=== PATIENT | male | born 1960 | race Caucasian/White ===

== ENCOUNTER 2021-10-13 10:32 | Emergency (ER) | payer MEDICARE, OTHER, SELFPAY ==
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
[2021-10-13 10:48] VITALS: BP 186/101; PULSE 113; RESP 18; TEMP 37.7; O2SAT 96
== END 2021-10-13 11:11 | disposition home or self-care (01) ==
PROVIDERS: Emergency Provider Nurse Practitioner Family; PCP Family Medicine
DX: J40 Bronchitis, not specified as acute or chronic (principal); J32.9 Chronic sinusitis, unspecified
CPT/HCPCS: 99213; G0463

== ENCOUNTER 2023-08-05 15:51 | Emergency (ER) | payer MEDICARE, SELFPAY ==
--- NOTE | ~2023-08-05 | XR_ITS ---
EXAMINATION: XR chest 2V DATE: 08/05/2023 16:45 INDICATION: Cough. TECHNIQUE: Frontal and lateral views of the chest were obtained on 3 radiographs. COMPARISON: None. FINDINGS: The lungs are hyperexpanded, consistent with chronic obstructive pulmonary disease. There i s mild atelectasis versus scarring in left lower lung zone. No pleural effusion or pneumothorax. The heart size is normal. IMPRESSION: 1. Hyperexpanded lungs, consistent with chronic obstructive pulmonary disease. 2. Mild atelectasis versus scarring in left lower lung zone. Reviewed, dictated and finalized at location A. CENTER SPECIALIST
[2023-08-05 16:14] VITALS: BP 173/84; PULSE 100; RESP 20; TEMP 37.4; O2SAT 96
--- NOTE | 2023-08-05 16:46 | ED.URI ---
HPI - URI/Sore Throat General Chief Complaint: Upper Respiratory Infection Stated Complaint: Sinus Time Seen by Provider: 08/05/23 16:46 Source: patient Mode of arrival: ambulatory Limitations: no limitations History of Present Illness HPI Narrative: 62-year-old male presents with complaint of cough, chest congestion x5 days. Afebrile. No nasal Congestion, sore throat. not taking any [id number] medications to treat symptoms. Patient is current everyday smoker. Feeling short of breath, chest tightness today. All systems reviewed and negative except as noted above. Related Data Allergies Allergy/AdvReac Type Severity Reaction Status Date / Time simvastatin Allergy Intermediate Unknown Verified 11/28/22 08:00 atorvastatin Allergy Mild Unknown Verified 11/28/22 08:00 Review of Systems Review of Systems: CONSTITUTIONAL: Denies fever, chills, or sweats. EYES: Denies visual changes, redness, or discharge. ENT: Denies rhinorrhea, congestion, sore throat, or otalgia. CARDIOVASCULAR: Denies chest pain, palpitations, or edema. RESPIRATORY: Reports cough, chest congestion and dyspnea with exertion. GASTROINTESTINAL: Denies abdominal pain, nausea, vomiting, or diarrhea. GENITOURINARY: Denies dysuria or hematuria. SKIN: Denies rash or itching. MUSCULOSKELETAL: Denies back pain, joint pain, or myalgia. NEUROLOGIC: Denies headache, numbness, or weakness. PSYCHIATRIC: Denies anxiety or depression. All other systems reviewed are negative, except as documented in HPI. [facility] Past Medical History Medical History BMI greater than 30 Family History Family History Mother Family history of multiple sclerosis, Onset Age: 57 Patient's mother is Sibling Patient's sister is in good health, Onset Age: 45 Father Patient's father is Family history of malignant neoplasm of brain Family history of malignant neoplasm of esophagus Social History Social History Smoking status: Current every day smoker Alcohol intake: current Comments At time of signature, agree with nursing past medical, surgical, social and family history. There is no relevant family history pertinent to the presenting complaint. Exam Narrative: GENERAL: This is a well-nourished, well-developed patient, in no apparent distress. HEAD: normocephalic, atraumatic. EYES: PERRL. Sclera clear/white. Vision is grossly intact. EARS: External ears normal, auditory canals clear and without drainage, TMs normal without perforation. Hearing grossly intact. NOSE: External nose normal with no obvious nasal discharge, nares without redness, no rhinorrhea. THROAT: Mucous membranes moist, posterior pharynx clear. NECK: Neck supple, non-tender without lymphadenopathy, masses or thyromegaly. CARDIOVASCULAR: Regular rate and rhythm without murmurs, gallops, or rubs. RESPIRATORY: decreased throughout all lung amaral, expiratory wheeze noted to upper lung amaral. Breath sounds equal bilaterally. No rales, or rhonchi. SKIN: warm, Dry, intact with no suspicious lesions or rash, good texture and turgor. NEURO: awake, alert, and oriented to person, place and time. There were no obvious focal neurologic abnormalities. EXTREMITIES: No joint tenderness, effusion, or edema noted. Course Course Level of Care: Express Care Visit Vital Signs Vital signs: Vital Signs Temperature 37.4 C 08/05/23 16:14 Pulse Rate 100 08/05/23 16:14 Respiratory Rate 20 08/05/23 16:14 Blood Pressure 173/84 H 08/05/23 16:14 Pulse Oximetry 96 08/05/23 16:14 Oxygen Delivery Room Air 08/05/23 16:14 Temperature 37.4 C 08/05/23 16:14 Pulse Rate 100 08/05/23 16:14 Respiratory Rate 20 08/05/23 16:14 Blood Pressure 173/84 H 08/05/23 16:14 Pulse Oximetry 96 08/05/23 16:14
[2023-08-05] MEDS: ALBUTEROL SULFATE NEB 2.5 MG/3 ML INH INHALATION (16:57)
[2023-08-05] MEDS: IPRATROPIUM BR 0.02% INH SOLN 0.5 MG/2.5 ML VIAL INHALATION (16:58)
[2023-08-05] MEDS: predniSONE 20 MG TABLET 40 MG PO (16:58)
== END 2023-08-05 17:40 | disposition home or self-care (01) ==
PROVIDERS: Emergency Provider Nurse Practitioner Family; PCP Family Medicine
DX: J44.0 Chronic obstructive pulmonary disease with (acute) lower respiratory infection (principal); J20.9 Acute bronchitis, unspecified; F17.200 Nicotine dependence, unspecified, uncomplicated
CPT/HCPCS: 71046; 94640; 99213; G0463; J7512

== ENCOUNTER 2023-08-07 08:00 | Emergency (ER) | payer MEDICARE, SELFPAY ==
[2023-08-07] VITALS (11 sets, daily range): BP systolic 143–181; BP diastolic 84–103; PULSE 92–100; RESP 12–26; TEMP 36.4; O2SAT 91–99
--- NOTE | ~2023-08-07 | XR_ITS ---
EXAMINATION: XR chest 1V portable DATE: 08/07/2023 08:55 INDICATION: Shortness of breath. TECHNIQUE: A single frontal view of the chest was obtained on 2 radiographs. COMPARISON: Chest 2 views 08/05/2023 FINDINGS: There are lucencies in the lungs, consistent with emphysema. No pleural effusion or pneumot horax. The heart size is normal. IMPRESSION: 1. Emphysema. Reviewed, dictated and finalized at location A. LE PULLER IMPRESSION: 1. Emphysema.
--- NOTE | 2023-08-07 08:59 | ED.GENADULT ---
HPI - General Adult General Chief complaint: Shortness of Breath/Dyspnea Stated complaint: Shortness of breath Time Seen by Provider: 08/07/23 08:40 History of Present Illness HPI narrative: 62-year-old male presents to the emergency department for evaluation of worsening shortness of breath. Patient states on Thursday he started developing some sinus congestion and cough. Patient had follow-up with his primary care physician on the and was started on albuterol and prednisone for suspected bronchitis. Patient states that the symptoms have been worsening. Patient is a smoker and smokes approximately 2 packs of cigarettes a day. Related Data Allergies Allergy/AdvReac Type Severity Reaction Status Date / Time simvastatin Allergy Intermediate Unknown Verified 08/07/23 08:03 atorvastatin Allergy Mild Unknown Verified 08/07/23 08:03 Review of Systems Review of Systems: All systems reviewed & are unremarkable except as noted in HPI and below PMFSH Past Medical History Medical History BMI greater than 30 Family History Family History Mother Family history of multiple sclerosis, Onset Age: 57 Patient's mother is Sibling Patient's sister is in good health, Onset Age: 45 Father Patient's father is Family history of malignant neoplasm of brain Family history of malignant neoplasm of esophagus Social History Social History Smoking status: Current every day smoker Alcohol intake: current Exam Narrative: APPEARANCE: Well appearing, no pain, no distress, well-nourished. HEAD: normocephalic, atraumatic. EYES: PERRLA/EOMI, conjunctivae clear. NOSE: Normal no drainage EARS:TMS clear with good light reflex. THROAT: Pharynx clear, no exudate. NECK: Supple. No adenopathy, no masses. RESPIRATORY: Airway patent, respirations nonlabored. Wheezing bilaterally CARDIOVASCULAR: Regular rate and rhythm without murmurs rubs or gallops. ABDOMINAL: Soft, nontender, nondistended, normal bowel sounds MUSCULOSKELETAL: Moves all extremities. Strength/ROM intact, No edema, No calf tenderness. NEURO: Alert. Cranial nerves II through XII intact. grossly intact SKIN: Warm, dry. Normal Color Course Course Emergency Course: 62-year-old male present to the ED for evaluation of worsening cough congestion. Patient did have some wheeze on exam was treated with albuterol. Patient was able to ambulate in the emergency department with a pulse ox 92%. Patient states he did have some shortness of breath but patient states he does feel strong enough to be discharged to home. Patient was offered admission for his shortness of breath. Patient was positive for RSV. Chest x-ray showed emphysema but no underlying pneumonia. Patient was started on antibiotics due to the possibility an underlying bacterial infection due to his significant smoking history. Patient was offered admission but patient preferred to be discharged to home. Patient was well-appearing at time of discharge. Patient was educated on reasons to return to the ED. All questions and concerns were addressed. Patient does have albuterol at home and patient was provided a spacer. Patient was provided additional 3 days on his prednisone taper and patient was started antibiotics. Vital Signs Vital signs: Vital Signs Temperature 97.6 F 08/07/23 08:03 Pulse Rate 97 08/07/23 08:03 Respiratory Rate 24 H 08/07/23 08:03 Blood Pressure 181/84 H 08/07/23 08:03 Pulse Oximetry 92 08/07/23 08:03 Oxygen Delivery Room Air 08/07/23 08:03 Temperature 97.6 F 08/07/23 08:03 Pulse Rate 100 08/07/23 11:15 Respiratory Rate 18 08/07/23 11:15 Blood Pressure 146/100 H 08/07/23 11:01 Pulse Oximetry 92 08/07/23 11:15 Oxygen Delivery Room Air 08/07/23 08:28 Medical
[2023-08-07 09:09] LABS: Influenza A QL RT-PCR Negative (Negative); Influenza B QL RT-PCR Negative (Negative); RSV RNA, RT-PCR Positive (Negative); SARS-CoV-2 RNA PCR Negative (Negative)
[2023-08-07] MEDS: ALBUTEROL SULFATE NEB 2.5 MG/3 ML INH INHALATION (09:23)
[2023-08-07] MEDS: AZITHROMYCIN 250 MG TABLET 500 MG PO (11:49)
[2023-08-07] MEDS: AMOXICILLIN/CLAVULANATE K 875-125 MG TAB 1 TABLET PO (11:49)
== END 2023-08-07 11:57 | disposition home or self-care (01) ==
PROVIDERS: Emergency Provider Emergency Medicine; PCP Family Medicine
DX: J44.1 Chronic obstructive pulmonary disease with (acute) exacerbation (principal); B97.4 Respiratory syncytial virus as the cause of diseases classified elsewhere; F17.200 Nicotine dependence, unspecified, uncomplicated; Z20.822 Contact with and (suspected) exposure to COVID-19
CPT/HCPCS: 71045; 87637; 94640; 94664; 99283; A9270

== ENCOUNTER 2024-07-07 18:51 | Emergency (ER) | payer MEDICARE, SELFPAY ==
--- NOTE | ~2024-07-07 | US_ITS ---
EXAM: Focused ultrasound examination of the soft tissues of the left groin/scrotum HISTORY: abscess TECHNIQUE: Sonographic evaluation of the soft tissues of the left axilla were performed assessing gra yscale appearance and color Doppler flow. COMPARISON: None. FINDINGS: Within the area of clinical concern is a focus of mixed echogenicity measuring 12 x 12 x 17 mm. This focus demonstrates peripheral vascularity appears to be contained within the epidermal layer, suggest ing the presence of a sebaceous cyst. Sonographic evaluation of the remaining soft tissues of the left colon demonstrate benign fibrofatty elements without a cystic or solid lesion of concern. IMPRESSION: Findings suggesting the presence of a sebaceous cyst, for which clinical correlation is needed. Reviewed, dictated and finalized at location A. TROCARDIOGRAPH TECHNICIAN IMPRESSION: Findings suggesting the presence of a sebaceous cyst, for which clinical correl ation is needed.
[2024-07-07 19:00] VITALS: BP 189/84; PULSE 94; RESP 18; TEMP 36.7; O2SAT 100
[2024-07-07 20:36] VITALS: BP 179/97; PULSE 97; RESP 18; TEMP 36.8; O2SAT 97
[2024-07-07 20:47] VITALS: BP 178/97; PULSE 94; RESP 18; TEMP 36.8; O2SAT 97
[2024-07-07 23:19] VITALS: BP 199/96; PULSE 92; RESP 20; TEMP 36.9; O2SAT 99
--- NOTE | 2024-07-07 23:25 | ED_ITS ---
HPI - General Adult General Chief complaint: Skin/Abscess/Foreign Body Stated complaint: boil on left scrotum Time Seen by Provider: 07/07/24 22:07 History of Present Illness HPI narrative: patient is a 63-year-old gentleman who presents emergency department chief complaint of scrotal swelling and abscess. Patient reports that he feels as though there is a well was developed on his scrotum. Patient denies necrotic tissue denies crepitance Related Data Allergies Allergy/AdvReac Type Severity Reaction Status Date / Time simvastatin Allergy Intermediate Unknown Verified 11/12/23 16:27 atorvastatin Allergy Mild Unknown Verified 11/12/23 16:27 Review of Systems Review of Systems: A 10 system review of systems was completed on the patient and is negative except for what is stated in the HPI. Nursing and ancillary documentation was reviewed. [facility] Past Medical History Medical History BMI greater than 30 Family History Family History Mother Family history of multiple sclerosis, Onset Age: 57 Patient's mother is Sibling Patient's sister is in good health, Onset Age: 45 Father Patient's father is Family history of malignant neoplasm of brain Family history of malignant neoplasm of esophagus Social History Social History Smoking status: Former smoker (quit 3 weeks ago ) Alcohol intake: current Exam Narrative: GENERAL: Well-appearing, well-nourished, and in no acute distress. HEAD: Normocephalic, atraumatic. EYES: PERRLA and EOMI. ENT: Nares clear, no rhinorrhea or epistaxis. Mucous membranes moist. NECK: Supple. CHEST: Clear to auscultation. No respiratory distress. HEART: Regular rate and rhythm. No murmur heard. Normal peripheral pulses. ABDOMEN: Soft, nontender, nondistended, normal active bowel sounds. : There is a dime-sized swollen area in the inferior portion of the scrotum EXTREMITIES: Normal range of motion. No edema. SKIN: Warm, dry, no rash. NEURO: No focal deficits. Alert and oriented x3. PSYCH: Normal mood and affect. Course Vital Signs Vital signs: Vital Signs Temperature 36.7 C 07/07/24 19:00 Pulse Rate 94 07/07/24 19:00 Respiratory Rate 18 07/07/24 19:00 Blood Pressure 189/84 H 07/07/24 19:00 Pulse Oximetry 100 07/07/24 19:00 Oxygen Delivery Room Air 07/07/24 19:00 Temperature 36.9 C 07/07/24 23:19 Pulse Rate 92 07/07/24 23:19 Respiratory Rate 20 07/07/24 23:19 Blood Pressure 199/96 H 07/07/24 23:19 Pulse Oximetry 99 07/07/24 23:19 Oxygen Delivery Room Air 07/07/24 20:36 Procedures Abscess I/D scrotum: Date of Incision: 07/07/24 Time of Incision: 23:26 Local Anesthetic: lidocaine 1% Amount of anesthesia used (mL): 5 Technique: incised with #11 blade Amount of fluid expressed (mL): 5 Irrigation: No Packing used?: iodoform I&D Results: Pus Medical Decision Making MDM Narrative Medical decision making narrative: differential diagnosis includes abscess, cellulitis, ultrasound showed a possible cyst given the the area is tender and fluctuant incision and drainage was done Vital Signs Vital Signs: Vital Signs Temperature 36.7 C 07/07/24 19:00 Pulse Rate 94 07/07/24 19:00 Respiratory Rate 18 07/07/24 19:00 Blood Pressure 189/84 H 07/07/24 19:00 Pulse Oximetry 100 07/07/24 19:00 Oxygen Delivery Room Air 07/07/24 19:00 Temperature 36.9 C 07/07/24 23:19 Pulse Rate 92 07/07/24 23:19 Respiratory Rate 20 07/07/24 23:19 Blood Pressure 199/96 H 07/07/24 23:19 Pulse Oximetry 99 07/07/24 23:19 Oxygen Delivery Room Air 07/07/24 20:36 Discharge Plan Discharge Clinical Impression: Abscess of scrotal wall Patient Disposition: Home, Self-Care Condition: Stable Instructions: Antibiotic Form, Abscess (ED), Abscess Incision and Drainage (DC) Additional Instructions: you should remove the packing in 24 hours please follow-up with urology Prescriptions: New doxycycline hyclate 100 mg tablet 100 mg PO BID Qty: 14 0RF No Action famotidine 40 mg tablet 40 mg PO DAILY Qty: 14 0RF losartan-hydrochlorothiazide 100-25 mg tablet 1 tablet PO DAILY Qty: 90 3RF Follow-up/Referrals: Bossman Jackson MD [Physician] - Beto Castillo MD [Primary Care Provider] - Time of Disposition: 23:43
[2024-07-07] MEDS: DOXYCYCLINE HYCLATE 100 MG TABLET PO (23:54)
== END 2024-07-07 23:58 | disposition home or self-care (01) ==
PROVIDERS: Emergency Provider Emergency Medicine; PCP Family Medicine
DX: N49.2 Inflammatory disorders of scrotum (principal)
CPT/HCPCS: 55100; 76882; 99284; A9270; J2003

== ENCOUNTER 2024-08-20 08:38 | Emergency (ER) | payer MEDICARE, SELFPAY ==
[2024-08-20 09:09] VITALS: BP 169/90; PULSE 100; RESP 16; TEMP 36.1; O2SAT 100
[2024-08-20 11:15] VITALS: BP 156/80; PULSE 96; RESP 18; TEMP 36.4; O2SAT 100
[2024-08-20] MEDS: ONDANSETRON INJ 4 MG/2 ML VIAL IV PUSH (12:05)
[2024-08-20] MEDS: SODIUM CHLORIDE 0.9% IV 1,000 ML 999 ML IV CONT (12:05)
--- NOTE | 2024-08-20 12:06 | ED_ITS ---
HPI - General Adult General Chief complaint: Abdominal Pain Stated complaint: I think i have the stomach flu Time Seen by Provider: 08/20/24 11:35 History of Present Illness HPI narrative: 63-year-old male presenting emergency department for evaluation for persistent nausea and vomiting it has been going on since Thursday. Patient states that he has had no coughs fever or associated abdominal pain. Patient denies any sick contacts. Patient's primary complaint is the nausea and subsequent weakness. Patient denies any pain with urination. Related Data Allergies Allergy/AdvReac Type Severity Reaction Status Date / Time simvastatin Allergy Intermediate Unknown Verified 11/12/23 16:27 atorvastatin Allergy Mild Unknown Verified 11/12/23 16:27 Review of Systems 2 Review of Systems: All systems reviewed & are unremarkable except as noted in HPI and below PMFSH Past Medical History Medical History BMI greater than 30 Family History Family History Mother Family history of multiple sclerosis, Onset Age: 57 Patient's mother is Sibling Patient's sister is in good health, Onset Age: 45 Father Patient's father is Family history of malignant neoplasm of brain Family history of malignant neoplasm of esophagus Social History Social History Smoking status: Former smoker (quit 3 weeks ago ) Alcohol intake: current Exam 2 Narrative: APPEARANCE: Ill-appearing HEAD: normocephalic, atraumatic. EYES: PERRLA/EOMI, conjunctivae clear. NOSE: Normal no drainage EARS:TMS clear with good light reflex. THROAT: Pharynx clear, no exudate. NECK: Supple. No adenopathy, no masses. RESPIRATORY: Airway patent, respirations nonlabored. Clear to auscultation bilaterally, no rales, rhonchi, wheezing. CARDIOVASCULAR: Regular rate and rhythm without murmurs rubs or gallops. ABDOMINAL: Soft, nontender, nondistended, normal bowel sounds MUSCULOSKELETAL: Moves all extremities. Strength/ROM intact, No edema, No calf tenderness. NEURO: Alert. Cranial nerves II through XII intact. Good gait. Good coordination SKIN: Warm, dry. Normal Color Course Vital Signs Vital signs: Vital Signs Temperature 97 F L 08/20/24 09:09 Pulse Rate 100 08/20/24 09:09 Respiratory Rate 16 08/20/24 09:09 Blood Pressure 169/90 H 08/20/24 09:09 Pulse Oximetry 100 08/20/24 09:09 Temperature 97.9 F 08/20/24 15:39 Pulse Rate 80 08/20/24 15:39 Respiratory Rate 16 08/20/24 15:39 Blood Pressure 142/78 H 08/20/24 15:39 Pulse Oximetry 97 08/20/24 15:39 Medical Decision Making MDM Narrative Medical decision making narrative: 63-year-old male present to emergency department for evaluation for nausea vomiting symptoms. Patient was treated with IV fluids IV Zofran and does feel improved with treatment. Patient does have a leukocytosis of 10.9 and hemoglobin of 16.5. No significant acute abnormalities on the patient's CMP, UA was negative. On re-examination patient has a nice soft and nontender abdomen. Patient was negative for influenza RSV and for COVID. Patient and family are updated on the results of the workup and plan for treatment from. Patient was advised to follow a clear liquid diet for the next 1-3 days along with Zofran for nausea control. Differential Diagnosis Differential Diagnosis: Colitis, diverticulitis, gastroenteritis, viral etiology, dehydration Vital Signs Vital Signs: Vital Signs Temperature 97 F L 08/20/24 09:09 Pulse Rate 100 08/20/24 09:09 Respiratory Rate 16 08/20/24 09:09 Blood Pressure 169/90 H 08/20/24 09:09 Pulse Oximetry 100 08/20/24 09:09 Temperature 97.9 F 08/20/24 15:39 Pulse Rate 80 08/20/24 15:39 Respiratory Rate 16 08/20/24 15:39 Blood Pressure 142/78 H 08/20/24 15:39 Pulse Oximetry 97 08/20/24 15:39 Lab Data Lab results reviewed: Yes I reviewed the patient's lab results. 08/20/24 12:07 08/20/24 12:07 Labs: Lab Results 08/20/24 Range/Units 12:07 WBC 10.9 H (4.5-10.0) K/mm3 RBC 5.62 (4.6-6.20) M/mm3 Hgb 16.5 (14.0-18.0) g/dL Hct 47.5 (42.0-52.0) % MCV 84.5 (80-100) fl MCH 29.4 (26-34) pg MCHC 34.7 (32-36) g/dl RDW 13.1 (11.5-14.5) % Plt Count 319 (150-375) k/mm3 MPV 9.9 (7.4-10.4) fl Immature Gran % (Auto) 0.4 (0-0.5) % Neut % (Auto) 70.5 (45.5-73.1) % Lymph % (Auto) 19.7 (18.3-44.2) % [place] % (Auto) 8.3 (2.6-8.5) % Eos % (Auto) 0.4 (0-4.4) % Baso % (Auto) 0.7 (0.2-1.2) % Lymph # (Auto) 2.15 (0.9-3.2) K/mm3 [place] # (Auto) 0.9 H (0.1-0.6) K/mm3 Eos # (Auto) 0.0 (0-0.3) K/mm3 Baso # (Auto) 0.1 (0.0-0.1) K/mm3 Abs Immat Gran (auto) 0.04 H (0.00-0.031) K/mm3 Absolute Neuts (auto) 7.7 H (1.3-6.7) K/mm3 Absolute Nucleated RBC 0.000 (0.0-0.012) K/mm3 Nucleated RBC % 0.0 (0.0-0.2) % Sodium 138 (137-145) mmol/L Potassium 3.2 L (3.4-5.0) mmol/L Chloride 108 H (98-107) mmol/L Carbon Dioxide 19 L (22-30) mmol/L Anion Gap 11 (4-12) mmol/L BUN 22 H (9-20) mg/dL Creatinine 1.10 (0.7-1.3) mg/dL Estim Creat Clear Calc 76 ml/min Estimated GFR > 60 (59 - ) Glucose 122 H (65-110) mg/dL Calcium 10.1 (8.4-10.2) mg/dL Total Bilirubin 2.4 H (0.2-1.3) mg/dL AST 33 (17-59) U/L ALT 32 (6-50) U/L Alkaline Phosphatase 68 (38-126) U/L Total Protein 8.0 (6.3-8.2) g/dL Albumin 5.0 (3.5-5.1) g/dL Urine Color Yellow (Yellow) Urine Appearance Clear (Clear) Urine pH 7.0 (5.0-9.0) Ur Specific [place] 1.008 (1.001-1.035) Urine Protein Negative (Negative) mg/dL Urine Glucose (UA) Negative (Negative) mg/dL Urine Ketones 1+ H (Negative) mg/dL Ur Blood (Man) Negative (Negative) Urine Nitrate Negative (Negative) Urine Bilirubin Negative (Negative) Urine Urobilinogen 1.0 (<2.0) mg/dL Leukocyte Esterase Rfl Negative (Negative) MIN/UL Influenza A (RT-PCR) Negative (Negative) Influenza B (RT-PCR) Negative (Negative) RSV (RT-PCR) Negative (Negative) SARS-CoV-2 RNA (RT-PCR) Negative (Negative) Discharge Plan Discharge Clinical Impression: Nausea & vomiting Patient Disposition: Home, Self-Care Condition: Stable Instructions: Antibiotic Form, Clear Liquid Diet (ED), Acute Nausea and Vomiting (DC) Additional Instructions: Clear liquid diet for the next 1-3 days. Zofran as needed for nausea control. Have close follow-up with your primary care physician. If you have any worsening symptoms then please call or return to the emerged department. Patient Language: [place] Citizen Prescriptions: New ondansetron 4 mg tablet,disintegrating 4 mg PO Q8H PRN (Reason: nausea and vomiting) Qty: 14 0RF No Action famotidine 40 mg tablet 40 mg PO DAILY Qty: 14 0RF doxycycline hyclate 100 mg tablet 100 mg PO BID Qty: 14 0RF losartan-hydrochlorothiazide 100-25 mg tablet 1 tablet PO DAILY Qty: 90 3RF Follow-up/Referrals: Beto Castillo MD [Primary Care Provider] -
[2024-08-20 12:18] LABS: Basophils Absolute Auto 0.1 K/mm3 (0.0-0.1); Basophils Percent Auto 0.7 % (0.2-1.2); Eosinophils Percent Auto 0.4 % (0-4.4); Hematocrit 47.5 % (42.0-52.0); Hemoglobin 16.5 g/dL (14.0-18.0); Immature Granulocyte Absolute 0.04 K/mm3 (0.00-0.031); Immature Granulocyte Percent A 0.4 % (0-0.5); Lymphocytes Absolute Auto 2.15 K/mm3 (0.9-3.2); Lymphocytes Percent Auto 19.7 % (18.3-44.2); Mean Corpuscular HGB Conc 34.7 g/dl (32-36); Mean Corpuscular Hemoglobin 29.4 pg (26-34); Mean Corpuscular Volume 84.5 fl (80-100); Mean Platelet Volume 9.9 fl (7.4-10.4); Monocytes Absolute Auto 0.9 K/mm3 (0.1-0.6); Monocytes Percent Auto 8.3 % (2.6-8.5); Neutrophils Absolute Auto 7.7 K/mm3 (1.3-6.7); Neutrophils Percent Auto 70.5 % (45.5-73.1); Platelet Count Result 319 k/mm3 (150-375); Red Blood Count 5.62 M/mm3 (4.6-6.20); Red Cell Distribution Width 13.1 % (11.5-14.5); White Blood Count 10.9 K/mm3 (4.5-10.0)
[2024-08-20 12:27] LABS: Add Urine Microscopic? NO; Appearance Urine Clear (Clear); Bilirubin Urine Negative (Negative); Blood Urine Negative (Negative); Color Urine Yellow (Yellow); Glucose Urine UA Negative (Negative); Ketones Urine 1+ mg/dL (Negative); Leukocyte Esterase Ur Negative LEU/UL (Negative); Nitrate Urine Negative (Negative); Protein Urine Negative (Negative); Specific Grav Ur 1.008 (1.001-1.035)
[2024-08-20 12:29] LABS: Alanine Aminotransferase 32 U/L (6-50); Alkaline Phosphatase 68 U/L (38-126); Anion Gap 11 mmol/L (4-12); Aspartate Amino Transferase 33 U/L (17-59); Bilirubin,Total 2.4 mg/dL (0.2-1.3); Blood Urea Nitrogen 22 mg/dL (9-20); Calcium 10.1 mg/dL (8.4-10.2); Carbon Dioxide 19 mmol/L (22-30); Chloride 108 mmol/L (98-107); Estimated CRCL calculation 76 ml/min; Estimated Glomerular Filt Rate > 60; Glucose 122 mg/dL (65-110); Potassium 3.2 mmol/L (3.4-5.0); Sodium 138 mmol/L (137-145)
[2024-08-20 12:30] VITALS: BP 156/88; PULSE 92; RESP 16; TEMP 36.6; O2SAT 98
[2024-08-20 13:04] LABS: Influenza A QL RT-PCR Negative (Negative); Influenza B QL RT-PCR Negative (Negative); RSV RNA, RT-PCR Negative (Negative); SARS-CoV-2 RNA PCR Negative (Negative)
[2024-08-20 14:30] VITALS: BP 146/80; PULSE 86; RESP 16; TEMP 36.6; O2SAT 98
[2024-08-20 15:39] VITALS: BP 142/78; PULSE 80; RESP 16; TEMP 36.6; O2SAT 97
--- OUTSIDE RECORDS SUMMARY | 2024-08-27 08:04 | XMS_ITS | Referral Summary ---
Author Organization [facility] Address [address] [place] [address] Care Team Providers Care Medical Records Analyst Name Role Phone Lalo Dang MD Primary Care Provider Source Comments [facility],non-owned Affiliates and Associated Physician Practices is amultiple site organization consisting of ambulatory clinics and hospital sitesin [place], [place], [place] and [place]. This disclosure is being madepursuant to the Care Everywhere program and may not contain all information available regarding this patient. Last updated 18.[facility] Medications * Be aware that medications may not be up to date on this document. Alwaysverify current medications with the patient. Medication Sig Dispensed Refills Start Date End Date Status losartan-hydroCHLOROthiazide (Hyzaar) 100-25 MG tablet 05/22/2023 Active Active Problems No known active problems Social History Tobacco Use Types Packs/Day Years Used Date Smoking Tobacco: Never Assessed Sex and Gender Information Value Date Recorded Sex Assigned at Not on file Gender Identity Not on file Sexual Orientation Not on file Plan of Treatment Not on file Care Teams Medical Records Analyst Relationship Specialty Start Date End Date Lalo Dang MD [address] [place] [address] PCP - General Dermatology 07/10/23
--- OUTSIDE RECORDS SUMMARY | 2024-08-27 08:04 | XMS_ITS | Clinical Summary ---
Author Organization [facility] Address [address] [place] [address] Care Team Providers Care Supervisor Of Research Name Role Phone Lalo Dang MD Primary Care Provider Source Comments [facility],non-owned Affiliates and Associated Physician Practices is amultiple site organization consisting of ambulatory clinics and hospital sitesin [place], [place], [place] and [place]. This disclosure is being madepursuant to the Care Everywhere program and may not contain all information available regarding this patient. Last updated 18.[facility] Medications * Be aware that medications may [...] Orientation Not on file Plan of Treatment Health Maintenance Due Date Last Done Comments COLOGUARD (AGES 45-75) - COL ON CA SCREENING 1958 COLON MONITORING 1958 COLONOSCOPY - COLON CA SCREENING 1958 CT COLONOGRAPHY - COLON CA SCREENING 1958 Colorectal Cancer Screening 1958 FIT - COLON CA SCREENING 1958 FLEX SIG - COLON CA SCREENING 1958 LIPID TESTING 1958 HIV SCREENING 1973 HEPATITIS C SCREENING 12/07/1976 DTAP/TDAP/TD VACCINES (1 - Tdap) 1977 ZOSTER VACCINE (1 of 2) 2008 DEPRESSION SCREENING 08/24/2023 MEDICARE AWV ? CALENDAR YEAR 2023 PNEUMOCOCCAL VACCINE 65+ (1 of 1 - PCV) 12/13/2023 COVID-19 VACCINE (2023-2 5 season) 2024 INFLUENZA VACCINE (#1) 2024 Respiratory Syncytial Virus (RSV) Vaccine Pt: or over 60 yrs (1 - 1-dose 75+ series) 2033 HEPATITIS B VACCINE Aged Out No longe r eligible based on patient's age to complete this topic HIB VACCINE Aged Out No longer eligi ble based on patient's age to complete this topic HPV VACCINE Aged Out No longer eligi ble based on patient's age to complete this topic MENINGOCOCCAL VACCINE Aged Out No khadijah tre eligible based on patient's age to complete this topic Care Teams Supervisor Of Research Relationship Specialty Start Date End Date Lalo Dang MD [address] [place] [id number] PCP - General Dermatology 07/10/23
--- OUTSIDE RECORDS SUMMARY | 2024-08-27 08:04 | XMS_ITS | Encounter Summary ---
Author Organization [facility] Address [address] [place] [address] Care Team Providers Care Metal Crafts Teacher Name Role Phone Lalo Dang MD Primary Care Provider Reason for Visit * Reason Comments Squamous Cell Carcinoma Right distal for earm Encounter Details Date Type Department Care Team (Latest Contact Info) Description 07/10/2023 1:00 PM FEATHER STITCHER Procedure visit [facility] - Dermatology [address] [place] [address] David Lance MD [address] [facility] [address] [place] [address] Squamous cell carcinoma, arm, right Social History Tobacco Use Types Packs/Day Years Used Date Smoking Tobacco: Never Assessed Sex and Gender Information Value Date Recorded Sex Assigned at Not on file Gender Identity Not on file Sexual Orientation Not on file documented as of this encounter Patient Instructions * Patient Instructions* Samia Mccann E - 07/10/2023 1:42 PM FEATHER STITCHER Stitches: will dissolve Follow up: * If you have a problem or concern post-operatively, please call ahead to schedule an appointment. We may not be able to accommodate a walk-in appointment * Please continue wound care below twice a day for 2 weeks WOUND CARE INSTRUCTIONS 1. Leave your pressure bandage on for 48 hours. You may bathe/shower, but do NOT get the bandage wet. You will not need to perform any wound care until this bandage is removed. 2. When you initially begin wound care, you may let the water hit the pressure bandage to loosen itfrom your skin. The bandage should be removed before bathing/showering. 3. Wash your hands thoroughly before starting wound care. Do not use the same cloth/rag/sponge you would use to wash the remainder of your body as this may introduce bacteria from other areas of yourbody and possibly cause infection at the surgical site. 4. You will clean the surgery site twice daily with a mild liquid soap (i.e. Dove, Cetaphil, Baby shampoo). Do not use anything antibacterial, as this will dry the surgical site. 5. Dry the area with a fresh Q-tip or clean gauze. 6. Apply a generous amount of Vaseline or Aquaphor to the wound/sutures. Do not use Neosporin, or any antibacterial ointment as this is likely to cause an allergic reaction to the site. If you are not sure of the sanitary condition of any Vaseline/Aquaphor you may have at home, please purchase a new jar or tube. DO NOT DOUBLE-DIP Q-tips into the ointment and DO NOT USE YOUR FINGERS. This is essential in helping to prevent cross contamination and infection. 7. Cut a non-stick bandage pad to fit the area and then use bandaging tape to hold in place. Paper tape is a good option for very sensitive skin types. 8. You will be using mild soap, clean tap water, Vaseline/Aquaphor, and a bandage twice a day for 2weeks 9. After surgery, you may restart all your medications that were stopped (if applicable). If your surgical site is on your forehead, or close to the eye area, you will want to use ice packs. Please apply ice packs every hour for 20 minutes while awake. Sleep elevated for the next two nights as this will help decrease the amount of bruising and swelling you will notice the evening after surgery and into the next morning. For surgical areas on your arms/legs, try to keep the area elevated above the level of your heart as much as possible. This will help to decrease swelling. Frequent gentle rubbing of your fingers or toes in that area will prevent numbness and stiffness. If located on your arm/hand, we ask that you do not lift anything heavier than a gallon of milk fortwo weeks. Keep the arm/hand elevated to help decrease swelling in the wrist and fingers. Do not wear jewelry as impending swelling could cause discomfort. For surgical areas on your head/neck, do not bend over or stoop down. Do not drop your head, as this increases blood to the surgical area and can induce bleeding. Refrain from use of hair care products, hair coloring, or permanents until sutures have been removed and/or the surgical site has completely healed. BATHING: Begin bathing/showering once pressure bandage comes off. Do not let direct water pressure hit the surgery site. It is okay if it gets wet, just let the water roll over. PAIN: Tylenol only for the first 24 hours. Do not take any aspirin, Ibuprofen, Motrin or Aleve as this may increase your risk for bleeding for the first 24 hours. Significant pain/discomfort is unusual and should be reported to our office. SIGNS OF POSSIBLE INFECTION: Significant redness surrounding the surgery site that is warm to the touch, persistent or worsening pain, fever or flu-like symptoms, increased swelling to the area, thick yellow discharge, and/or foul odor. Please call our office as soon as possible if you experience any these symptoms as you may have an infection. BLEEDING: A mild amount of blood on the bandage is expected. Soaking through the bandage is not normal. If this occurs, remove the soiled bandage and apply uninterrupted pressure for 20 minutes by the clock. If this does not stop the bleeding, hold pressure for another 20 minutes with an ice pack. If bleeding stops, apply a bandage per wound care instructions. IF THE BLEEDING PERSISTS, PLEASE CALL OUR OFFICE. Normal office hours: [phone] or [phone] After hours and holidays Thursday - Thursday after 3:30 pm Bar Captain occupational work experience teacher: [phone] Scars may take 12 months or longer to mature, although a great deal of improvement occurs in the first 3 months. If you have concerns about your scar after 3 months, please call our office to schedule a follow up appointment. There are options available to help improve the appearance. I HER STITCHER documented in this encounter Progress Notes * David Lance MD - 07/10/2023 2:32 PM CST Mohs Consult Note Blue Rizvi is a 62 year old male who is referred by Dr. Dang for evaluation of a squamous cell carcinoma on the right forearm. Recurrent skin cancer: no Prior Treatment: no No past medical history on file. Current Outpatient Medications Medication Sig Dispense Refill ??? losartan-hydroCHLOROthiazide (Hyzaar) 100-25 MG tablet No current facility-administered medications for this visit. Not on File Pre-Operative Risk Factors: Current Anticoagulants: none Patient reports use of antibiotic for prior procedure: no Endocarditis / Rheumatic Fever hx: no Vascular graft: no Immunocompromised: no Prosthetic joint: no Congenital heart defect: no Prosthetic heart valve: no Diabetic: no Transplant: no Cardiac devices: Stent: no. Pacemaker: no. Defibrillator: no Transmissible Diseases: HIV no HepC no N/A Patient reports prior problem with local anesthesia no Tobacco use : no Review of Systems Constitutional: negative Eyes: negative Ears, nose, mouth, throat, and face: negative Respiratory: negative Cardiovascular: negative Gastrointestinal: negative Genitourinary:negative Hematologic/lymphatic: negative Neurological: negative Behavioral/Psych: negative Objective: Physical Exam: Limited skin exam is normal except for a pink plaque located on the right forearm. Pathologic Findings: Diagnosis: squamous cell carcinoma Assessment and Plan: Diagnosis: squamous cell carcinoma, right forearm Plan: Wide local excision with 0.4 cm margins Proposed closure: complex Indication for antibiotics: no Current Anticoagulants: none David Lance MD HER STITCHER documented in this encounter Procedure Notes * Priya Phillips - 07/10/2023 1:55 PM CSTAssociated Order(s): PROC EXCISION SKIN REMAINDER BODY MALIGNANT Procedure(s): CO EXC SKIN MALIG 2.1-3CM REMAINDR BODY; CO INTMD WND REPAIR TRUNK,ARM,LEG 2.6-7.5 Pre-Procedure Diagnose(s): Squamous cell carcinoma, arm, right Elliptical Excision with Intermediate Closure Date of Service: 07/10/2023 Tumor Type: squamous cell carcinoma, keratoacanthoma subtype Location: left distal ulnar forearm Derm-Path Lesion Size: 1.3x1.1 cm Repair Type: intermediate Repair Size: 5.5 cm Suture Material: 4-0 monocryl Level of Defect: adipose Surgical Margins: 0.4 cm Primary Surgeon: David Lance MD Business Analysis Analyst: N/A INDICATIONS: The risks of bleeding, infection, discomfort, incomplete removal, and scar formation were explainedto the patient. All questions were answered. After informed consent, confirmation of site and identity, and appropriate instructions, the patient underwent the procedure as follows: PROCEDURE: With the patient in a supine position, the lesion was outlined with 0.4 cm margins measuring 2.1 x 1.9 cm. An ellipse was designed around the lesion to conform to relaxed skin tension lines in an effort to minimize scarring and deformity. The patient was then positioned on the table. The lesion and surrounding skin were prepped with chlorhexidine, draped, and anesthetized with 1% lidocaine with epinephrine 1:100,100 buffered with 1:10 sodium bicarbonate. Using a #15 blade the skin was excised along premarked lines. The resulting defect extended to adipose. Wound margins were undermined to limit functional deformity/impairment of adjacent structures. Bleeding vessels were controlled with monopolar electrodesiccation. The dermis and subcutaneous tissue were closed with buried vertical mattress sutures. Epidermal approximation was meticulously refined with sutures, resulting in a linear closure with little to no wound tension. Blood loss was estimated to be less than 5cc. The area was coa heather with petrolatum and covered with a non-adherent dressing followed by gauze and tape. Postoperative instructions were reviewed per protocol. The patient left alert and fully oriented. The attending physician was present and always immediately available. Dr. Lance performed the entire surgery, and documentation used to initiate this operative report. I entered the information in our [employer] DocFlowsheet with the information provided by Dr. Lance on his handwritten, paper format, surgical worksheet, which was then used to initiate the create of this note. Dr. Lance then reviewed and edited the note as needed to complete the note. Priya Phillips I have reviewed the note, edited it as necessary and performed the entire procedure. David Lance MD Grinder Brake Lining 07/10/2023 HER STITCHER Associated attestation - David Lance MD - 07/10/2023 2:38 PM FEATHER STITCHER I have reviewed the note, edited it as necessary and performed the entire procedure. David Lance MD Grinder Brake Lining 07/10/2023 documented in this encounter Plan of Treatment Not on file documented as of this encounter Procedures Procedure Name Priority Date/Time Associated Diagnosis Comments CO EXC SKIN MALIG 2.1-3CM REMAINDR BODY Routine 07/10/2023 1:55 PM FEATHER STITCHER Squamous cell carcinoma, arm, right CO INTMD WND REPAIR TRUNK,ARM,LEG 2.6-7.5 Routine 07/10/2023 1:55 PM FEATHER STITCHER Squamous cell carcinoma, arm, right DERMATOPATHOLOGY Routine 07/10/2023 1:52 PM FEATHER STITCHER Squamous cell carcinoma, arm, right documented in this encounter Results * CO INTMD WND REPAIR TRUNK,ARM,LEG 2.6-7.5, CO EXC SKIN MALIG 2.1-3CM REMAINDR BODY (07/10/2023 1:55PM FEATHER STITCHER) Narrative David Lance MD - 07/10/2023 1:55 PM FEATHER STITCHER David Lance MD ? 07/10/2023 ??2:38 PM Elliptical Excision with Intermediate Closure Date of Service: 07/10/2023 Tumor Type: squamous cell carcinoma, keratoacanthoma subtype Location: left distal ulnar forearm Derm-Path Lesion Size: 1.3x1.1 cm Repair Type: intermediate Repair Size: 5.5 cm Suture Material: 4-0 monocryl Level of Defect: adipose Surgical Margins: 0.4 cm Primary Surgeon: David Lance MD Business Analysis Analyst: N/A INDICATIONS: The risks of bleeding, infection, discomfort, incomplete removal, and scar formation were explained to the patient. All questions were answered. After informed consent, confirmation of site and identity, and appropriate instructions, the patient underwent the procedure as follows: PROCEDURE: With the patient in a supine position, the lesion was outlined with 0.4 cm margins measuring 2.1 x 1.9 cm. An ellipse was designed around the lesion to conform to relaxed skin tension lines in an effort to minimize scarring and deformity. The patient was then positioned on the table. The lesion and surrounding skin were prepped with chlorhexidine, draped, and anesthetized with 1% lidocaine with epinephrine 1:100,100 buffered with 1:10 sodium bicarbonate. Using a #15 blade the skin was excised along premarked lines. The resulting defect extended to adipose. Wound margins were undermined to limit functional deformity/impairment of adjacent structures. Bleeding vessels were controlled with ??monopolar electrodesiccation. The dermis and subcutaneous tissue were closed with buried vertical mattress sutures. Epidermal approximation was meticulously refined with ?? sutures, resulting in a linear closure with little to no wound tension. Blood loss was estimated to be less than 5cc. The area was coated with petrolatum and covered with a non-adherent dressing followed by gauze and tape. Postoperative instructions were reviewed per protocol. The patient left alert and fully oriented. The attending physician was present and always immediately available. Dr. Lance performed the entire surgery, and documentation used to initiate this operative report. I entered the information in our [employer] DocFlowsheet with the information provided by Dr. Lance on his handwritten, paper format, surgical worksheet, which was then used to initiate the create of this note. Dr. Lance then reviewed and edited the note as needed to complete the note. Priya Phillips I have reviewed the note, edited it as necessary and performed the entire procedure. David Lance MD Grinder Brake Lining 07/10/2023 David Lance MD PROCEDURE/MINOR SURG ICAL ORDERABLES * DERMATOPATHOLOGY (07/10/2023 1:52 PM FEATHER STITCHER) Case Report Dermatopathology Report ? Case: [id number] ? Authorizing Provider: ??David Lance MD ?Collected: ? 07/10/2023 01:52 PM ? Ordering Location: ? [facility] ?? Received: ?07/13/2023 10:05 AM ? Cutaneous Oncology ? Pathologist: ? Chelsey Lisa MD ? Specimen: ?Skin, left forearm ? 3 1:22 PM [facility]ERMAT[facility] Final Diagnosis Specimen A. SKIN, left forearm: SQUAMOUS CELL CARCINOMA, WELL DIFFERENTIATED; RESIDUAL (C44.629) NOT PRESENT AT MARGIN DERMAL SCAR (L90.5) (see microscopic description) 3 1:22 PM [facility]ER[facility] Clinical History [facility] 3 1:22 PM [facility]ER[facility] Gross Description Specimen A: Received is one formalin filled container labeled with the patient's name and designated left forearm.The specimen consists of an ellipse measuring [id number] mm and is oriented with the suture/notch at the 12 o'clock position labeled on the requisition. Also, there a lesion measuring 6x5 mm.The 12 to 6 o'clock margin is inked green. The 6 o'clock to 12 o'clock margin is inked black. The 12 o'clock tip is submitted in cassette 1. The 6 o'clock tip is submitted in cassette 2. The remainder of the ellipse is serially sectioned and submitted in cassettes 3 - 5. Jar 0. 3 1:22 PM [facility] DERMAT[facility] Microscopic Description Specimen A. SKIN, left forearm: Arising in the epidermis and extending into the dermis there are irregularly shaped aggregates of keratinocytes showing evidence of premature cornification. This lesion is not present at the margin of the specimen. There are fibroblasts and collagen bundles oriented parallel to the skin surface with elongated blood vessels, some of which are oriented perpendicular to the skin surface. 3 1:22 PM [facility] DERMATOP[facility] Disclaimer An external and internal positive and negative controls are appropriate for the histochemical, immunohistochemical and immunofluorescence stain(s) in this case (if any), except where stated explicitly. The performance characteristics of the stain(s) cited in this report were developed and its performance characteristic determined by the Dermatopathology Laboratory at [facility], directed by Dr. Risa Patel. These tests need not be, and therefore are not, approved by the [place] Food and Drug Administration. The tests are used for clinical purposes. Billing Codes Specimen Charges Stain Charges 69228 1 3 1:22 PM FEATHER STITCHER DERMATOPATHOLOGY LABORATORY Embedded Images 3 1:22 PM [facility] DERMAT[facility] Pathology/Cytolo gy TISSUE SPECIMEN FROM SKIN / Unknown 07/10/2023 1:52 PM FEATHER STITCHER 07/13/2023 10:05 AM FEATHER STITCHER David Lance MD LAB - PATHOLOGY/CYTO LOGY ORDERABLES DERMATOPATHOLOGY LABORATORY [facility] Department of Dermatology [facility] Medicine [address] [place] [address], [address] [phone] documented in this encounter Visit Diagnoses Diagnosis Squamous cell carcinoma, arm, right- Primary documented in this encounter Care Teams Metal Crafts Teacher Relationship Specialty Start Date End Date Lalo Dang MD [address] [place] [address] PCP - General Dermatology 07/10/23 documented as of this encounter
--- OUTSIDE RECORDS SUMMARY | 2024-08-27 08:04 | XMS_ITS | Patient Health Summary ---
Author Organization [facility] [place] Address [address] [place] [address] Care Team Providers Care Deputy Attorney General Name Role Phone Lalo Dang MD Primary Care Provider [phone] Note from [facility],non-owned Affiliates and Associated Physician Practices is amultiple site organization consisting of ambulatory clinics and hospital sitesin [place], [place], [place] and [place]. This disclosure is being madepursuant to the Care Everywhere program and may not contain all information available regarding this patient. Last updated 18.[facility] Medications * Be aware that medications may not be up to date on this document. Alwaysverify current medications with the patient. * losartan-hydroCHLOROthiazide (Hyzaar) 100-25 MG tablet(Started 05/22/2023) Active Problems No known active problems Social History Tobacco Use Types Packs/Day Years Used Date Smoking Tobacco: Never Assessed Sex and Gender Information Value Date Recorded Sex Assigned at Not on file Gender Identity Not on file Sexual Orientation Not on file Procedures * DERMATOPATHOLOGY(Performed 02/16/2024) * NC EXC SKIN MALIG 2.1-3CM REMAINDR BODY(Performed 07/10/2023) Performed for Squamous cell carcinoma, arm, right * NC INTMD WND REPAIR TRUNK,ARM,LEG 2.6-7.5(Performed 07/10/2023) Performed for Squamous cell carcinoma, arm, right * DERMATOPATHOLOGY(Performed 07/10/2023) Performed for Squamous cell carcinoma, arm, right * DERMATOPATHOLOGY(Performed 06/24/2023) * DERMATOPATHOLOGY(Performed 07/16/2021) * DERMATOPATHOLOGY(Performed 01/19/2019) * DERMATOPATHOLOGY(Performed 08/01/2011) Results * DERMATOPATHOLOGY (02/16/2024 12:00 AM CDT) Only the most recent of6 resultswithin the time period is included. Case Report Dermatopathology Report ? Case: [id number] ? Authorizing Provider: ??Lalo Dang MD ?Collected: ? 02/16/2024 12:00 AM ? Ordering Location: ? [facility] - ??Received: ?02/18/2024 10:45 AM ? DermPath Lab ? Pathologist: ? Edilia Lisa MD ? Specimen: ?Skin, right superior anterior thigh ? 4 1:47 PM CDT DERMATOPATHOLOGY LABORATORY Final Diagnosis Specimen A. SKIN, right superior anterior thigh: SEBORRHEIC KERATOSIS, RETICULATED (ADENOID) TYPE, INFLAMED (L82.1) POST-INFLAMMATORY PIGMENT ALTERATION (L81.9) 4 1:47 PM CDT DERMATOPATHOLOGY LABORATORY Clinical History R/O Dysplastic nevus vs angioma 1:47 PM CDT DERMATOPATHOLOGY LABORATORY Gross Description Specimen A: Received is one formalin filled container labeled with the patient's name and designated right superior anterior thigh. The specimen consists of a shave biopsy measuring 10x8x2 mm. Jar 0. 1:47 PM CDT DERMATOPATHOLOGY LABORATORY Microscopic Description Specimen A. SKIN, right superior anterior thigh: There is reticulated hyperplasia of the epidermis with overlying delicate hyperorthokeratosis . Hyperpigmentation is present in the basaloid cells. There is abundant melanin within melanophages around the superficial vascular plexus and a lymphohistiocytic infiltrate within the dermis. 1:47 PM CDT DERMATOPATHOLOGY LABORATORY Disclaimer An external and internal positive and negative controls are appropriate for the histochemical, immunohistochemical and immunofluorescence stain(s) in this case (if any), except where stated explicitly. The performance characteristics of the stain(s) cited in this report were developed and its performance characteristic determined by the Dermatopathology Laboratory at [facility], directed by Dr. Risa Patel. These tests need not be, and therefore are not, approved by the [place] Food and Drug Administration. The tests are used for clinical purposes. Billing Codes Specimen Charges Stain Charges 65963 1 4 1:47 PM CDT DERMATOPATHOLOGY LABORATORY Embedded Images 1:47 PM CDT DERMATOPATHOLOGY LABORATORY Pathology/Cytolog y TISSUE SPECIMEN FROM SKIN / Unknown 02/16/2024 02/18/2024 10:45 AM CDT Lalo Dang MD LAB - PATHOLOGY/CYTO LOGY ORDERABLES DERMATOPATHOLOGY LABORATORY [facility] - Department of Dermatology [address] [phone] * NC INTMD WND REPAIR TRUNK,ARM,LEG 2.6-7.5, NC EXC SKIN MALIG 2.1-3CM REMAINDR BODY (07/10/2023 1:55PM ALIGNMENT TECHNICIAN) Narrative David Lance MD - 07/10/2023 1:55 PM ALIGNMENT TECHNICIAN David Lance MD ? 07/10/2023 ??2:38 PM Elliptical Excision with Intermediate Closure Date of Service: 07/10/2023 Tumor Type: squamous cell carcinoma, keratoacanthoma subtype Location: left distal ulnar forearm Derm-Path Lesion Size: 1.3x1.1 cm Repair Type: intermediate Repair Size: 5.5 cm Suture Material: 4-0 monocryl Level of Defect: adipose Surgical Margins: 0.4 cm Primary Surgeon: David Lance MD Student Financial Services Counselor: N/A INDICATIONS: The risks of bleeding, infection, [...] report. I entered the information in our [employer] DocFlowsheet with the information provided by Dr. Lance on his handwritten, paper format, surgical worksheet, which was then used to initiate the create of this note. Dr. Lance then reviewed and edited the note as needed to complete the note. Priya Phillips I have reviewed the note, edited it as necessary and performed the entire procedure. David Lance MD Print Room Worker 07/10/2023 David Lance MD PROCEDURE/MINOR SURG ICAL ORDERABLES Care Teams Deputy Attorney General Relationship Specialty Start Date End Date Lalo Dang MD [address] [place], [place] [id number] PCP - General Dermatology 07/10/23
--- OUTSIDE RECORDS SUMMARY | 2024-08-27 08:04 | XMS_ITS | Encounter Summary ---
Author Organization [facility] Address [address] [place] [address] Care Team Providers Care County Director Welfare Name Role Phone Lalo Dang MD Primary Care Provider Encounter Details Date Type Department Care Team (Latest Contact Info) Description 07/10/2023 Travel Social History Tobacco Use Types Packs/Day Years Used Date Smoking Tobacco: Never Assessed Sex and Gender Information Value Date Recorded Sex Assigned at Not on file Gender Identity Not on file Sexual Orientation Not on file documented as of this encounter Plan of Treatment Not on file documented as of this encounter Visit Diagnoses Not on filedocumented in this encounter Care Teams County Director Welfare Relationship Specialty Start Date End Date Lalo Dang MD [address] [place] [address] PCP - General Dermatology 07/10/23 documented as of this encounter
--- OUTSIDE RECORDS SUMMARY | 2024-08-27 08:04 | XMS_ITS | Encounter Summary ---
Author Organization [facility] Address [address] [facility] [place] [address] Care Team Providers Care Industrial Analyst Name Role Phone Lalo Dang MD Primary Care Provider Encounter Details Date Type Department Care Team (Late st Contact Info) Description 02/18/2024 Lab Requisition [facility] - DermPath Lab [address] [facility], [place] [id number] Lalo Dang MD [address] [place] [address] Social History Tobacco Use Types Packs/Day Years Used Date Smoking Tobacco: Never Assessed Sex and Gender Information Value Date Recorded Sex Assigned at Not on file Gender Identity Not on file Sexual Orientation Not on file documented as of this encounter Plan of Treatment Not on file documented as of this encounter Procedures Procedure Name Priority Date/Time Associated Diagnosis Comments DERMATOPATHOLOGY Routine 02/16/2024 12:0 0 AM CDT documented in this encounter Results * DERMATOPATHOLOGY (02/16/2024 12:00 AM CDT) Case Report Dermatopathology Report ? Case: [id number] ? Authorizing Provider: ??Lalo Dang MD ?Collected: ? 02/16/2024 12:00 AM ? Ordering Location: ? [facility] - ??Received: ?02/18/2024 10:45 AM ? DermPath Lab ? Pathologist: ? Edilia Lisa MD ? Specimen: ?Skin, right superior anterior thigh ? 4 1:47 PM CDT DERMATOPATHOLOGY LABORATORY Final Diagnosis Specimen A. SKIN, right superior anterior thigh: SEBORRHEIC KERATOSIS, RETICULATED (ADENOID) TYPE, INFLAMED (L82.1) POST-INFLAMMATORY PIGMENT ALTERATION (L81.9) 4 1:47 PM CDT DERMATOPATHOLOGY LABORATORY Clinical History R/O Dysplastic nevus vs angioma 4 1:47 PM CDT DERMATOPATHOLOGY LABORATORY Gross Description Specimen A: Received is one formalin filled container labeled with the patient's name and designated right superior anterior thigh. The specimen consists of a shave biopsy measuring 10x8x2 mm. Jar 0. 4 1:47 PM CDT DERMATOPATHOLOGY LABORATORY Microscopic Description Specimen A. SKIN, right superior anterior thigh: There is reticulated hyperplasia of the epidermis with overlying delicate hyperorthokeratosis . Hyperpigmentation is present in the basaloid cells. There is abundant melanin within melanophages around the superficial vascular plexus and a lymphohistiocytic infiltrate within the dermis. 4 1:47 PM CDT DERMATOPATHOLOGY LABORATORY Disclaimer An external and internal positive and negative controls are appropriate for the histochemical, immunohistochemical and immunofluorescence stain(s) in this case (if any), except where stated explicitly. The performance characteristics of the stain(s) cited in this report were developed and its performance characteristic determined by the Dermatopathology Laboratory at [facility], directed by Dr. Risa Patel. These tests need not be, and therefore are not, approved by the [place] Food and Drug Administration. The tests are used for clinical purposes. Billing Codes Specimen Charges Stain Charges 22064 1 4 1:47 PM CDT DERMATOPATHOLOGY LABORATORY Embedded Images 4 1:47 PM CDT DERMATOPATHOLOGY LABORATORY Pathology/Cytolog y TISSUE SPECIMEN FROM SKIN / Unknown 02/16/2024 02/18/2024 10:45 AM CDT Lalo Dang MD LAB - PATHOLOGY/CYTO LOGY ORDERABLES DERMATOPATHOLOGY LABORATORY [facility] - Department of Dermatology [facility] [address] [place] [address], [address]rd Floor [address] [phone] documented in this encounter Visit Diagnoses Not on filedocumented in this encounter Care Teams Industrial Analyst Relationship Specialty Start Date End Date Lalo Dang MD [address] [place] [address] PCP - General Dermatology 07/10/23 documented as of this encounter
--- OUTSIDE RECORDS SUMMARY | 2024-08-27 08:05 | XMS_ITS | Encounter Summary ---
Author Organization [facility] Address [address] [place] [address] Care Team Providers Care Swaging Machine Adjuster Name Role Phone Lalo Dang MD Primary Care Provider [phone] Reason for Visit * Reason Onset Date Comments Appointment 07/08/2023 Encounter Details Date Type Department Care Team (Late st Contact Info) Description 07/08/2023 Telephone [facility] - Dermatology [address] [place] [address] Holley Yee MD [address] [facility] [address] [place] [address] Appointment Social History Tobacco Use Types Packs/Day Years Used Date Smoking Tobacco: Never Assessed Sex and Gender Information Value Date Recorded Sex Assigned at Not on file Gender Identity Not on file Sexual Orientation Not on file documented as of this encounter Miscellaneous Notes * Telephone Encounter - Holley Yee MD - 07/08/2023 9:12 PM CST Same day Mohs for A please. Holley eYe MD [id number] Final Diagnosis Specimen A. SKIN, right distal ext ulnar forearm: SQUAMOUS CELL CARCINOMA, KERATOACANTHOMA TYPE; SUPERFICIAL PORTIONS OF (C44.622) (see microscopic description) PER documented in this encounter Plan of Treatment Not on file documented as of this encounter Visit Diagnoses Not on filedocumented in this encounter Care Teams Swaging Machine Adjuster Relationship Specialty Start Date End Date Lalo Dang MD [address] [place] [address] PCP - General Dermatology 07/10/23 documented as of this encounter
--- OUTSIDE RECORDS SUMMARY | 2024-08-27 08:05 | XMS_ITS | Encounter Summary ---
Author Organization [facility] Facility Care Team Providers Care Pail Bailer Name Role Phone Unavailable Primary Care Provider Unavailabl e Encounter Details Date Type Department Care Team (Late st Contact Info) Description 01/07/2011 - 01/07/2011 11:59 PM CDT Hospital Encounter [facility] Primitivo, Enrrique Hahn MD [address] [facility] 6A/6B/12A [place] [address] Localized osteoarthrosis, shoulder region Social History Tobacco Use Types Packs/Day Years Used Date Smoking Tobacco: Never Assessed Sex and Gender Information Value Date Recorded Sex Assigned at Not on file Legal Sex Male 8:26 PM REHABILITATION MANAGER Gender Identity Not on file Sexual Orientation Not on file documented as of this encounter Plan of Treatment Not on file documented as of this encounter Visit Diagnoses Diagnosis Localized osteoarthrosis, shoulder region Localized osteoarthrosis not specified whether primary or secondary, shoulder region documented in this encounter
--- OUTSIDE RECORDS SUMMARY | 2024-08-27 08:05 | XMS_ITS | Encounter Summary ---
Author Organization [facility] Facility Care Team Providers Care Blasting Entryman Name Role Phone Unavailable Primary Care Provider Unavailabl e Encounter Details Date Type Department Care Team (Late st Contact Info) Description 07/02/2010 - 07/02/2010 11:59 PM DIRECTOR BIOMEDICAL ENGINEERING Hospital En[facility] Langford, Enrrique Hahn MD [address] [facility] 6A/6B[address] [place] [address] Localized osteoarthrosis, shoulder region Social History Tobacco Use Types Packs/Day Years Used Date Smoking Tobacco: Never Assessed Sex and Gender Information Value Date Recorded Sex Assigned at Not on file Legal Sex Male 8:26 PM DIRECTOR BIOMEDICAL ENGINEERING Gender Identity Not on file Sexual Orientation Not on file documented as of this encounter Plan of Treatment Not on file documented as of this encounter Visit Diagnoses Diagnosis Localized osteoarthrosis, shoulder region Localized osteoarthrosis not specified whether primary or secondary, shoulder region documented in this encounter
--- OUTSIDE RECORDS SUMMARY | 2024-08-27 08:05 | XMS_ITS | Encounter Summary ---
Author Organization [facility] Facility Care Team Providers Care Slip Caster Name Role Phone Unavailable Primary Care Provider Unavailabl e Encounter Details Date Type Department Care Team (Late st Contact Info) Description 04/09/2010 - 04/09/2010 11:59 PM CDT Hospital Encounter [facility] Primitivo, Enrrique Hahn MD [address] [facility] 6A/6B/[address] [place] [address] Osteoarthrosis, shoulder region Social History Tobacco Use Types Packs/Day Years Used Date Smoking Tobacco: Never Assessed Sex and Gender Information Value Date Recorded Sex Assigned at Not on file Legal Sex Male 8:26 PM SUPERVISOR HYDROCHLORIC AREA Gender Identity Not on file Sexual Orientation Not on file documented as of this encounter Plan of Treatment Not on file documented as of this encounter Visit Diagnoses Diagnosis Osteoarthrosis, shoulder region Osteoarthrosis, unspecified whether generalized or localized, shoulder region documented in this encounter
--- OUTSIDE RECORDS SUMMARY | 2024-08-27 08:05 | XMS_ITS | Encounter Summary ---
Author Organization [facility] Facility Care Team Providers Care Animal Laboratory Technician Name Role Phone Unavailable Primary Care Provider Unavailabl e Encounter Details Date Type Department Care Team (Late st Contact Info) Description 02/10/2011 - 02/10/2011 11:59 PM CDT [facility] Daniel Michel MD [address] [facility] 6A/6B/[address] [place] [address] Localized osteoarthrosis, shoulder region; Pain in joint, shoulder region Social History Tobacco Use Types Packs/Day Years Used Date Smoking Tobacco: Never Assessed Sex and Gender Information Value Date Recorded Sex Assigned at Not on file Legal Sex Male 8:26 PM OYSTER CULTURIST Gender Identity Not on file Sexual Orientation Not on file documented as of this encounter Plan of Treatment Not on file documented as of this encounter Visit Diagnoses Diagnosis Localized osteoarthrosis, shoulder region Localized osteoarthrosis not specified whether primary or secondary, shoulder region Pain in joint, shoulder region documented in this encounter
--- OUTSIDE RECORDS SUMMARY | 2024-08-27 08:05 | XMS_ITS | Clinical Summary ---
Author Organization [facility] Address [address] [place] [address] Care Team Providers Care Cause Analyst Name Role Phone Beto Castillo MD Primary Care Provider [phone] Allergies No known active allergies Medications ibuprofen 200 mg capsule 200 mg. 0 0 08/13/2015 Active losartan-hydroC HLOROthiazide (HYZAAR) 100-12.5 mg per tablet 0 0 08/13/2015 Active omeprazole (PriLOSEC) 20 mg capsule Take 1 capsule (20 mg total) by mouth 2 (two) times a day 60 capsule 3 01/14/2024 Active Active Problems Problem Noted Date Diagnosed Date Patient encounter status 10/22/2015 Overview (11/29/2016): Postoperative follow-up Recurrent ventral incisional hernia 08/13/2015 Overview (11/27/2016): Recurrent ventral incisional hernia Arthralgia of shoulder 10/08/2010 Social History Tobacco Use Types Packs/Day Years Used Date Smoking Tobacco: Heavy Smoker Comments:Smoking History Pac ks/day: 2 Packs Alcohol Use Standard Drinks/Week Comments No 0 (1 standard drink = 0.6 oz pur e alcohol) Personal Safety Answer Date Recorded Getting School Help Needed Not on file 09/15 Sex and Gender Information Value Date Recorded Sex Assigned at Not on file Legal Sex Male 8:26 PM BILLET RECORDER Gender Identity Not on file Sexual Orientation Not on file Obstetrics History Last Filed Vital Signs Vital Sign Reading Time Taken Comments Blood Pressure 138/100 10/24/2015 10:03 AM BILLET RECORDER Pulse 96 10/04/2015 9:02 AM BILLET RECORDER Temperature - - Respiratory Rate - - Oxygen Saturation - - Inhaled Oxygen Concentration - - Weight 109.6 kg (241 lb 9.6 oz) 11/18/2023 3:06 PM CDT Height 182.9 cm (6') 11/18/2023 3:06 PM CDT Body Mass Index 32.77 11/18/2023 3:06 PM CDT Plan of Treatment Health Maintenance Due Date Last Done Comments Colon Cancer Screening-Colonoscopy 1960 Depression Screening 1960 Fall Risk Assessment 1960 Hepatitis C Screening 1960 Prostate Cancer Screening-PSA 1960 Pneumococcal vaccine 65+ (1 of 2 - PCV) 1964 Hepatitis B Screening 1976 Zoster Vaccine (1 of 2) 2008 Abdominal Aortic Aneurysm (A AA) Screen 12/13/2023 Well Visit 65+ 12/13/2023 Covid-19 Vaccine ( season) 2024 07/30/2021, 11/23/2020, 11/02/2020 Influenza Vaccine (#1) 2024 07/30/2021 DTaP/Tdap/Td Vaccine (2 - Td or Tdap) 02/07/2029 [place] [address] [employer] Care Teams Cause Analyst Relationship Specialty Start Date End Date Beto Castillo MD PCP - General 10/22/15
--- OUTSIDE RECORDS SUMMARY | 2024-08-27 08:05 | XMS_ITS | Encounter Summary ---
Author Organization [facility] Address [address] [place] [address] Phone Care Team Providers Care Machining Associate Name Role Phone Beto Castillo MD Primary Care Provider + [phone] Encounter Details Date Type Department Care Team (Late st Contact Info) Description 09/15/2023 Telephone [facility] Pulmonary [address] [facility] Advanced Medicine 8th [place] [address] [place] [address] Anupam Cannon RN Social History Tobacco Use Types Packs/Day Years [...] on file Legal Sex Male 8:26 PM SECOND VP HR ASSESSMENT Gender Identity Not on file Sexual Orientation Not on file documented as of this encounter Miscellaneous Notes * Telephone Encounter - Anupam Cannon RN - 09/15/2023 11:20 AM SECOND VP HR ASSESSMENT Images from the original note were not included. Patient referred by Dr. Jennings. Schedule Kay[facility] IOV next available Received: Today Call patient Anupam Cannon, [facility] Pulm [address] Sched Hub Pool Please schedule this patient as an IOV in Dr. Headley clinic next available. He needs spi, spi w bd, DLCO, lung volumes, ABG, O2A, and CXR. All orders are written. Please call [phone] to confirm appointment. Thank you ND VP HR ASSESSMENT documented in this encounter Plan of Treatment Not on file documented as of this encounter Visit Diagnoses Not on filedocumented in this encounter Care Teams Machining Associate Relationship Specialty Start Date End Date Beto Castillo MD PCP - General 10/22/15 documented as of this encounter
--- OUTSIDE RECORDS SUMMARY | 2024-08-27 08:05 | XMS_ITS | Encounter Summary ---
Author Organization [facility] Address [address] [place] [address] Phone Care Team Providers Care Gravity Prospecting Operator Helper Name Role Phone Beto Castillo MD Primary Care Provider [phone] Reason for Referral * Consultation (Routine) - Pending Review Specialty Diagnoses / Procedures Referred By Contac t Referred To Contact Pulmonary Disease / Pulmonology Diagnoses Chronic obstructive pulmonary disease, unspecified COPD type (H[place]) [place] [address] [place] [address] Phone: tel: fax: [place] [address] [place] [address] Phone: tel: fax: Referral ID Status Reason Start Date Expiration Date Visits Requested Visits Authorized [id number] Pending Review Specialty Services Required 09/17/2023 10/16/2024 1 1 Question Answer Please select the performing region: [facility] (All Locations) [[id number]] To provider: MEDHAT LEAVITT [[id number]] # of visits: 1 Comments Per Anupam DOLAN IFIED TOWER CLIMBER Encounter Details Date Type Department Care Team (Late st Contact Info) Description 09/17/2023 Orders Only [facility] Pulmonary [address] [place] [address] 8th [place] [phone] Medhat Leavitt MD [address] [facility] [address] [place] [address] Chronic obstructive pulmonary disease, unspecified COPD type (HCC) (Primary Dx) Social History Tobacco Use Types Packs/Day Years [...] on file Legal Sex Male 8:26 PM CERTIFIED TOWER CLIMBER Gender Identity Not on file Sexual Orientation Not on file documented as of this encounter Plan of Treatment Scheduled Referrals Name Type Priority Associated Diagnoses Order Schedule Ambulatory referral to Pulmonology Outpatient Referral Routine Chronic obstructive pulmonary disease, unspecified COPD type (CMS/HCC) 1 Occurrences starting 09/17/2023 until 09/17/2024 documented as of this encounter Visit Diagnoses Diagnosis Chronic obstructive pulmonary disease, unspecified COPD type (HCC)- Primary documented in this encounter Care Teams Gravity Prospecting Operator Helper Relationship Specialty Start Date End Date Beto Castillo MD PCP - General 10/22/15 documented as of this encounter
--- OUTSIDE RECORDS SUMMARY | 2024-08-27 08:05 | XMS_ITS | Encounter Summary ---
Author Organization [facility] Address [address] [place] [address] Phone Care Team Providers Care Pigment Grinder Name Role Phone Beto Castillo MD Primary Care Provider + [phone] Reason for Visit * Consultation (Routine) - Authorized Specialty Diagnoses / Procedures Referred By Contac t Referred To Contact Speech Therapy Diagnoses Dysphagia, unspecified type Sylwia Miller MD [address] [place] [address] Phone: tel: fax: [facility] (All Locations) Referral ID Status Reason Start Date Expiration Date Visits Requested Visits Authorized [id number] Authorized Evaluate and Treat 11/18/2023 12/17/2024 24 24 Encounter Details Date Type Department Care Team (Late st Contact Info) Description 11/18/2023 3:20 PM CDT Therapy [facility] Otolaryngology [address] [place] [address] Medical Office Building [address] [place] [address] Arcelia Mcdonald, JESUS [address] [place] [address] Throat discomfort (Primary Dx); Dysphagia, unspecified type Social History Tobacco Use Types Packs/Day Years [...] on file 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 adult who was seen in conjunction with Dr.Molly Miller during today's clinic visit. Pt reports throat irritation, pressure, pain, and sensation of thick mucus in his throat at baseline. Symptoms started following a series of URIs starting in July (bronchitis, RSV, sinus infection,thrush) and have persisted since then. He denies food sticking or going down the wrong way when swallowing. He feels pain in his throat at rest and during swallowing; his neck feels really stiff . It hurts to turn his head. He can feel sensation of thick mucus when swallowing Drinking liquids improves sensation but it keeps returning He reports known sinus issues; he has a lot of congestion/drainage He reports his voice feels a little more hoarse right now related to increased drainage. No dyspnea complaints. His tonsils feel like sand bags . He reports rare coughing and some throat clearing that does not really clear his throat. No pneumonia or unexplained weight loss No head, neck, chest surgeries. He quit smoking last year, smoked for ~ 40 years 1.5 ppd. He is here with his and daughter. OBJECTIVE: Clinician???s Perceptual Assessment (50242): The Consensus Auditory-Perceptual Evaluation of Voice (CAPE-V) was administered below to subjectively assess overall voice quality severity (Os), roughness (R), breathiness (B), strain (S), habitual speaking pitch (Fo), and habitual speaking loudness (Io). These were determined to be consistent/frequent (C) or infrequent/intermittent (I). Rating of 0-10 = no problem; 10-20 = mild; 21-34= mild to moderate; 35-49= moderate; 50-74= moderate to severe; 75-89= severe; 90-100= profound. This revealed: Os: 25/100, C R: 25/100, C B: 0/100, C S: 20/100, C Fo: 20/100, C Io: 10/100, C Additional Features: Resonance: posterior focused VOICE CURRENT STATUS: (As determined by objective and subjective voice evaluation based on the [place] [employer] National Outcomes Measurement System (NOMS) functional communication measures) Current Level: 6 Levels: Level 1: 0-10% functional: Voice is not functional and must use alternate means of communication all the time. Level 2: 11-30% functional: Voice is not functional most of the time and must use alternate means of communication most of the time. Level 3: 31-50% functional: Voice is functional but consistently distracting. Participation in activities limited most of the time. Level 4: 51-70% functional: Voice is functional for communication but is sometimes distracting. Voice is occasionally limited in low demand situations. Level 5: 71-80% functional: Voice occasionally sounds normal. Situational variation. Voice is rarely limited in low demand situations. Level 6: 81-95% functional: Voice sounds normal most of the time. Never limited in low demand situations. Occasionally limited in high demand situations. Level 7: 95-100% functional: Voice is normal in all situations. IMPRESSIONS & PLAN OF CARE: Blue Rizvi is a 62 y.o. adult who presents with: Reported Symptoms: throat discomfort and pain Videostroboscopy today demonstrated: Right tonsillar mucus retention cyst abutting right epiglottis; moderate hyperfunction during phonation; TVFs slightly polypoid and hypervascular (L>R polypoidtissue); asymmetrical mucosal wave; Diagnosis of: throat discomfort, tonsillar mucocele Recommended Treatments: continue with reflux medication and RTC with laryngology in 2 months; no other SPINNING MULE OPERATOR intervention at this time Note dictated with voice recognition software. Mild mottler machine feeder variances may occur. Arcelia Mcdonald MA, [facility]-SPINNING MULE OPERATOR documented in this encounter Plan of Treatment Not on file documented as of this encounter Visit Diagnoses Diagnosis Throat discomfort- Primary Throat pain Dysphagia, unspecified type documented in this encounter Orders Outpatient Referral Count Last Ordered Date Fir st Ordered Date AMB REFERRAL ORDER TO SPEECH THERAPY 1 10/23 documented in this encounter Care Teams Pigment Grinder Relationship Specialty Start Date End Date Beto Castillo MD PCP - General 10/22/15 documented as of this encounter
--- OUTSIDE RECORDS SUMMARY | 2024-08-27 08:05 | XMS_ITS | Encounter Summary ---
Author Organization [facility] Address [address] [place] [address] Phone Care Team Providers Care Helpdesk Specialist Name Role Phone Beto Castillo MD Primary Care Provider + [phone] Reason for Visit * Reason Comments Dysphagia Encounter Details Date Type Department Care Team (Late st Contact Info) Description 11/18/2023 3:20 PM CDT Office Visit [facility] Medical Office Building 4 [address] [place] [address] Sylwia Miller MD [address] [place] [address] Throat discomfort (Primary Dx); Phlegm in throat; Mucocele of tonsil Social History Tobacco Use Types Packs/Day Years [...] on file 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 Gender Identity Not on file Sexual Orientation Not on file documented as of this encounter Last Filed Vital Signs Vital Sign Reading Time Taken Comments Blood Pressure - - Pulse - - Temperature - - Respiratory Rate - - Oxygen Saturation - - Inhaled Oxygen Concentration - - Weight 109.6 kg (241 lb 9.6 oz) 11/18/2023 3:06 PM CDT Height 182.9 cm (6') 11/18/2023 3:06 PM CDT Body Mass Index 32.77 11/18/2023 3:06 PM CDT documented in this encounter Ordered Prescriptions Prescription Sig Dispense Quantity Refills Last Filled Start Date End Date omeprazole (PriLOSEC) 20 mg capsule Take 1 capsule (20 mg total) by mouth 2 (two) times a day 60 capsule 3 11/18/2023 documented in this encounter Progress Notes * Sylwia Miller MD - 11/18/2023 3:20 PM CDT Images from the original note were not included. PATIENT NAME: Blue Rizvi : 1960 DOS: 11/18/2023 REFERRING PHYSICIAN: Beto Castillo MD CHIEF COMPLAINT: Chief Complaint Patient presents with Dysphagia HISTORY OF PRESENT ILLNESS: Blue Rizvi is a 62 y.o. male who presents today in evaluation for throat pain and difficulty swallowing. The sore throat has been present since July. He had back to back bronchitis, RSV, a sinus infection and then thrush. Ever since that time his throat hasn't felt right. He feels it more on the left. He feels like there is thick mucus there all of the time. It is an irritation that might hurt but he denies actual pain. More of a thick mucus sensation. Swallowing helps his symptoms.Can relieve his sensation but it also feels different because of the mucus. No weight loss, pneumonias or true dysphagia. No ear pain. No hemoptysis. No odynophagia. His father of throat cancer. He is extremely worried about it. He has been crying many nights because of his concern. He has tried reflux medication which has helped over the past four days a bit. He has tried antifungal medication as well (?nystatin). He has some voice changes currently because he is having sinus issues and drainage. This makes him feel hoarse. No coughing but feels like he needs to clear his throat. Drinking liquid alleviate the sensation temporarily. He is here because of his and daughter. He quit smoking last year but smoked ~40 years (1.5 packs per day) for a total of 60 pack years. Hequit 6 months ago. His neck has been stiff the past 3 days. His thinks this is due to stress. REVIEW OF SYSTEMS: A complete past medical history, family history, social history, and 10 system review of systems was completed by the patient on the Patient History Form and reviewed with the patient during the visit. All review of systems not otherwise marked on the form are negative. The Patient History Form canbe found in the electronic medical record as a scanned document. Past Medical History: History reviewed. No pertinent past medical history. Past Surgeries: has no past surgical history on file. Allergies: No Known Allergies Social History: Social History Tobacco Use Smoking status: Heavy Smoker Smokeless tobacco: None Tobacco comments: Smoking History Packs/day: 2 Packs Substance and Sexual Activity Drug use: None Sexual activity: None Alcohol Use: Not on file Family History: History reviewed. No pertinent family history. EXAM: Ht 182.9 cm (6') Wt 109.6 kg (241 lb 9.6 oz) BMI 32.77 kg/m?? General: Healthy appearing, no distress Psychiatric: Appropriate mood and affect Voice: very mild roughness Breathing pattern:Normal Skin: Color, texture, turgor normal. No rashes or concerning lesions on visible skin. Eyes: Lids/periorbital skin normal, conjunctivae clear, EOMs intact. Ears: External ears normal.. Nose: Normal external contour Oropharynx: Lips, mucosa, and tongue normal. Posterior pharynx without erythema or drainage. Right-sided tonsillar rounded yellow lesion (consistent with mucus retention cyst or mucocele) Neck/Lymphatic: Supple. No adenopathy. Laryngotracheal structures are midline.. Cranial Nerves:II-XII intact by exam.. LARYNGEAL EXAM: PROCEDURE: Flexible Laryngoscopy with Stroboscopy Indication: Throat discomfort Attending: Merline Miller Findings: Nasopharynx clear Palate elevation and closure: Complete Base of tongue, vallecula, epiglottis, and piriform sinuses clear. Right tonsillar mucus retention cyst abutting right epiglottis (pictured) Subglottis: clear Compression/ hyperfunction: Moderate Motion: True vocal folds were bilaterally mobile On Stroboscopy: Mucosa: Slightly polypoid and hypervascular (L>R polypoid tissue) Mucosal Wave: Asymmetric Glottic Closure: Full, no gaps Description of Procedure: The procedure was explained to the patient, who gave verbal consent. Afrin and Lidocaine 4% were used topically for anaesthesia. The endoscope was passed atraumatically through the nasal cavity with the findings as described above. The scope was gently withdrawn. The patient tolerated the procedurewell without complications. The findings were reviewed with the patient, whose questions were answered. ASSESSMENT/PLAN: 62 year old male with a sensation of throat discomfort (mucus in his throat) since an illness in July. He is very concerned about potential throat cancer. There were no red flag symptoms today and no lesions which appeared concerning for a tumor. We discussed the area near his right tonsil which appears most consistent with a mucus retention cyst. I explained that I cannot formally diagnose without tissue but I would feel comfortable just watching this (given its appearance, his lack of concerning symptoms, and the fact that his mucus sensation is more on the left and this lesion is on the right). He is amenable. If anything changes in his symptoms, I would be happy to biopsy or image it. For his sensation of mucus in the throat, we discussed potential contributors: UACS, muscle tension, laryngeal sensory neuropathy, and reflux. We discussed these each in detail. Given that he has already felt some benefit on his reflux medication, we will try a course of this. He is amenable. If his neck stiffness persists or worsens, would be order a CT neck. Finally, his exam was notable for polypoid changes on his vocal folds (consistent with Lindsay's edema). Again he was reassured this is a benign finding. MEDICATIONS ORDERED: Medication(s) Ordered omeprazole (PriLOSEC) 20 mg capsule Sig: Take 1 capsule (20 mg total) by mouth 2 (two) times a day Dispense: 60 capsule Refill: 3 ORDERS PLACED: No orders of the defined types were placed in this encounter. DISPOSITION: 2 months Merline Miller MD Blowing Engineer [facility] Division of Laryngology Department of Otolaryngology--Head & Neck Surgery documented in this encounter Plan of Treatment Not on file documented as of this encounter Visit Diagnoses Diagnosis Throat discomfort- Primary Throat pain Phlegm in throat Mucocele of tonsil documented in this encounter Care Teams Helpdesk Specialist Relationship Specialty Start Date End Date Beto Castillo MD PCP - General 10/22/15 documented as of this encounter
--- OUTSIDE RECORDS SUMMARY | 2024-08-27 08:05 | XMS_ITS | Encounter Summary ---
Author Organization [facility] Address [address] [place] [address] Phone Care Team Providers Care Logistics Planning Engineer Name Role Phone Beto Castillo MD Primary Care Provider + [phone] Encounter Details Date Type Department Care Team (Late st Contact Info) Description 09/17/2023 Telephone [facility] [address] 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 Gender Identity Not on file Sexual Orientation Not on file documented as of this encounter Miscellaneous Notes * Telephone Encounter - Anupam Cannon, HILL - 09/17/2023 2:01 PM MANAGER FLOOR ----- Message from Ross Garcia sent at 09/17/2023 1:47 PM MANAGER FLOOR ----- Regarding: RE: Schedule [facility] I[facility] next available LMOR for pt to call back to schedule ----- Message ----- From: Blossom Fonseca Sent: 09/15/2023 2:38 PM MANAGER FLOOR To: Ross Garcia Subject: FW: Schedule [facility] next available ----- Message ----- From: Anupam Cannon RN Sent: 09/15/2023 11:19 AM MANAGER FLOOR To: Renzo Jimenez [facility] [address] [place] [address] Subject: Schedule [facility] next available Please schedule this patient as an IOV in [facility] next available. He needs spi, spi w bd, DLCO, lung volumes, ABG, O2A, and CXR. All orders are written. Please call [phone] to confirm appointment. Thank you GER FLOOR documented in this encounter Plan of Treatment Not on file documented as of this encounter Visit Diagnoses Not on filedocumented in this encounter Care Teams Logistics Planning Engineer Relationship Specialty Start Date End Date Beto Castillo MD PCP - General 10/22/15 documented as of this encounter
--- OUTSIDE RECORDS SUMMARY | 2024-08-27 08:05 | XMS_ITS | Encounter Summary ---
Author Organization [facility] Facility Care Team Providers Care Industrial Relations Officer Name Role Phone Unavailable Primary Care Provider Unavailabl e Encounter Details Date Type Department Care Team (Late st Contact Info) Description 06/19/2010 - 06/19/2010 11:59 PM CDT Hospital Encounter [facility] Primitivo, Enrrique Hahn MD [address] [facility] [address]6B[address] [place] [address] Localized osteoarthrosis, shoulder region; Degeneration of lumbar or lumbosacral intervertebral disc; Cervical spondylosis without myelopathy Social History Tobacco Use Types Packs/Day Years Used Date Smoking Tobacco: Never Assessed Sex and Gender Information Value Date Recorded Sex Assigned at Not on file 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
--- OUTSIDE RECORDS SUMMARY | 2024-08-27 08:05 | XMS_ITS | Encounter Summary ---
Author Organization [facility] Address [address] [place] [address] Phone Care Team Providers Care Petroleum Refinery Laborer Name Role Phone Beto Castillo MD Primary Care Provider + [phone] Reason for Visit * Reason Comments Dysphagia Encounter Details Date Type Department Care Team (Late st Contact Info) Description 01/14/2024 9:00 AM CDT Office Visit [facility] ENT [facility] Medical Office Building [address] [place] [address] Sylwia Miller MD [address] [place] [address] Throat discomfort (Primary Dx); Mucocele of tonsil Social History Tobacco Use [...] on file 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 provider found CHIEF COMPLAINT: No chief complaint on file. HISTORY OF PRESENT ILLNESS: Blue Rizvi is a 63 y.o. male who presents today in evaluation for throat pain and difficulty swallowing. Please recall, the sore throat has been present since July. He had back to back bronchitis, RSV, a sinus infection and then thrush. Ever since that time his throat hasn't felt right. Hefeels it more on the left. He feels like there is thick mucus there all of the time. He elected to trial reflux medication. He says his throat his 95% better. The throat discomfort specifically has improved. He also has improved his throat clear but it is not gone. He had a sip of water close by he wouldn't be doing it. 5% is triggered by if he eats something spicy, eats too much and falls asleep, or allergies. EXAM: There were no vitals taken for this visit. General: Healthy appearing, no distress Psychiatric: Appropriate [...] lesion (consistent with mucus retention cyst or mucocele), stable. Neck/Lymphatic: Supple. No adenopathy. Laryngotracheal structures are midline.. Cranial Nerves:II-XII intact by exam.. LARYNGEAL EXAM: PROCEDURE: Flexible Laryngoscopy with Stroboscopy Indication: Throat discomfort Attending: Merline Miller Findings: Nasopharynx clear Palate elevation and closure: Complete Base of tongue, vallecula, epiglottis, and piriform sinuses clear. Right tonsillar mucus retention cyst abutting right epiglottis (stable) Subglottis: clear Compression/ hyperfunction: Moderate Motion: True [...] his throat) since an illness in July. This has improved with reflux. His tonsillar cyst is stable. I recommended he try going down to once a day on his PPI. MEDICATIONS ORDERED: No orders of the defined types were placed in this encounter. ORDERS PLACED: No orders of the defined types were placed in this encounter. DISPOSITION: 2 months Merline Miller MD Occupational Health Nurse [facility] Division of Laryngology Department of Otolaryngology--Head & Neck Surgery documented in this encounter Plan of Treatment Not on file documented as of this encounter Visit Diagnoses Diagnosis Throat discomfort- Primary Throat pain Mucocele of tonsil documented in this encounter Discontinued Medications Medication Sig Discontinue Reason Start Date End Da te omeprazole (PriLOSEC) 20 mg capsule Take 1 capsule (20 mg total) by mouth 2 (two) times a day Reorder 11/18/2023 01/14/2024 documented as of this encounter Care Teams Petroleum Refinery Laborer Relationship Specialty Start Date End Date Beto Castillo MD PCP - General 10/22/15 documented as of this encounter
--- OUTSIDE RECORDS SUMMARY | 2024-08-27 08:05 | XMS_ITS | Encounter Summary ---
Author Organization [facility] Facility Care Team Providers Care Nozzle Cement Sprayer Helper Name Role Phone Unavailable Primary Care Provider Unavailabl e Encounter Details Date Type Department Care Team (Late st Contact Info) Description 10/08/2010 - 10/08/2010 11:59 PM TREE SHEAR OPERATOR [facility] Langford, Enrrique Hahn MD [address] [facility] 6A[address]6B[address] [place] [address] Localized osteoarthrosis, shoulder region Social History Tobacco Use Types Packs/Day Years Used Date Smoking Tobacco: Never Assessed Sex and Gender Information Value Date Recorded Sex Assigned at Not on file 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
--- OUTSIDE RECORDS SUMMARY | 2024-08-27 08:05 | XMS_ITS | Encounter Summary ---
Author Organization [facility] Facility Care Team Providers Care Teaching Pastor Name Role Phone Unavailable Primary Care Provider Unavailabl e Encounter Details Date Type Department Care Team (Late st Contact Info) Description 09/25/2009 - 09/25/2009 11:59 PM MICROBIOLOGY PROFESSOR Hospital Encounter [facility] Primitivo, Enrrique Hahn MD [address] [facility] 6A[address]6B[address]A [place] [address] Localized osteoarthrosis, shoulder region Social History Tobacco Use Types Packs/Day Years Used Date Smoking Tobacco: Never Assessed Sex and Gender Information Value Date Recorded Sex Assigned at Not on file 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
--- OUTSIDE RECORDS SUMMARY | 2024-08-27 08:05 | XMS_ITS | Encounter Summary ---
Author Organization [facility] Facility Care Team Providers Care Molybdenum Steamer Operator Name Role Phone Beto Castillo MD Primary Care Provider [phone] Encounter Details Date Type Department Care Team (Latest Contact Info) Description 09/28/2015 9:54 AM SPECIAL PROCEDURES NURSE - 09/28/2015 11:59 PM SPECIAL PROCEDURES NURSE Hospital Encounter [facility] Tavo Reinoso MD [address] [place] [address] Encounter for preprocedural laboratory examination; Incisional hernia, without obstruction or gangrene Social History Tobacco Use Types Packs/Day Years Used Date Smoking Tobacco: Never Assessed Sex and Gender Information Value Date Recorded Sex Assigned at Not on file Legal Sex Male 8:26 PM SPECIAL PROCEDURES NURSE Gender Identity Not on file Sexual Orientation Not on file documented as of this encounter Medications at Time of Discharge Medication Sig Dispense Quantity Refills Last Filled Start D ate End Date ibuprofen 200 mg capsule 200 mg. 0 0 08/13/2015 losartan-hydroCHLORO thiazide (HYZAAR) 100-12.5 mg per tablet 0 0 08/13/2015 documented as of this encounter Plan of Treatment Not on file documented as of this encounter Procedures Procedure Name Priority Date/Time Associated Diagnosis Comments PLASMA BASIC METABOLIC PANEL Routine 09/28/2015 11:08 AM SPECIAL PROCEDURES NURSE DISCHARGE LABORATORY CUMULATIVE REPORT 09/28/2015 documented in this encounter Results * Plasma basic metabolic panel (09/28/2015 11:08 AM SPECIAL PROCEDURES NURSE) Sodium 138 136 - 146 mmol/L HISTORICAL RESULTS K, pl 4.6 3.3 - 4.9 mmol/L HISTORICAL RESULTS Chloride 105 98 - 108 mmol/L HISTORICAL RESULTS CO2 27 22 - 33 mmol/L HISTORICAL RESULTS BUN 13 7 - 18 mg/dl HISTORICAL RESULTS Glucose 121 70 - 140 mg/dl HISTORICAL RESULTS Comment: Glucose is assumed to be non-fasting. ?? Fasting Glucose normal ranges are: 0 days - 2 months: ? 40 mg/dL - 100 mg/dL 2 months - 999 years: ?70 mg/dL - 99 mg/dL Creatinine 1.30 0.50 - 1.50 mg/dl HISTORICAL RESULTS eGFR 57 ml/min/1.7 3 m2 HISTORICAL RESULTS Comment: GFR Reference Range: = > 60 mL/min/1.73 m2 This result has been calculated assuming the patient is Non-. ??If the patient is , please multiply this result by 1.21. The GFR value is not recommended for medication dose adjustment for renal function, creatinine clearance values should be used. Calcium 9.5 8.5 - 10.5 mg/dl HISTORICAL RESULTS Plasma 09/28/2015 11:0 8 AM SPECIAL PROCEDURES NURSE Tavo Reinoso MD LAB BLOOD ORDERABLES Final Re sult HISTORICAL RESULTS * DISCHARGE LABORATORY CUMULATIVE REPORT (09/28/2015) Narrative 09/28/2015 Ordered by an unspecified provider. Historical Provider LAB BLOOD ORDERABLES Kaycee l Result documented in this encounter Visit Diagnoses Diagnosis Encounter for preprocedural laboratory examination Incisional hernia, without obstruction or gangrene documented in this encounter Care Teams Molybdenum Steamer Operator Relationship Specialty Start Date End Date Beto Castillo MD PCP - General 08/13/15 10/21/15 documented as of this encounter
--- OUTSIDE RECORDS SUMMARY | 2024-08-27 08:05 | XMS_ITS | Encounter Summary ---
Author Organization [facility] Facility Care Team Providers Care Welder Metal Fab Name Role Phone Beto Castillo MD Primary Care Provider [phone] Encounter Details Date Type Department Care Team (Late st Contact Info) Description 07/06/2012 - 07/06/2012 11:59 PM SATELLITE DISH INSTALLER Hospital [facility] [address] [facility] [address]6B[address] [place] [address] Pain in joint, shoulder region; Osteoarthrosis, shoulder region Social History Tobacco Use Types Packs/Day Years Used Date Smoking Tobacco: Never Assessed Sex and Gender Information Value Date Recorded Sex Assigned at Not on file Legal Sex Male 8:26 PM SATELLITE DISH INSTALLER Gender Identity Not on file Sexual Orientation Not on file documented as of this encounter Plan of Treatment Not on file documented as of this encounter Visit Diagnoses Diagnosis Pain in joint, shoulder region Osteoarthrosis, shoulder region Osteoarthrosis, unspecified whether generalized or localized, shoulder region documented in this encounter Care Teams Welder Metal Fab Relationship Specialty Start Date End Date Beto Castillo MD PCP - General 10/10/11 08/12/15 documented as of this encounter
--- OUTSIDE RECORDS SUMMARY | 2024-08-27 08:05 | XMS_ITS | Encounter Summary ---
Author Organization [facility] Facility Care Team Providers Care Telephone Worker Name Role Phone Beto Castillo MD Primary Care Provider Encounter Details Date Type Department Care Team (Late st Contact Info) Description 02/03/2012 - 02/03/2012 11:59 PM CDT Hospital Encounter 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
--- OUTSIDE RECORDS SUMMARY | 2024-08-27 08:05 | XMS_ITS | Encounter Summary ---
Author Organization [facility] Facility Care Team Providers Care Alterations Tailor Name Role Phone Unavailable Primary Care Provider Unavailabl e Encounter Details Date Type Department Care Team (Late st Contact Info) Description 01/01/2010 - 01/01/2010 11:59 PM CDT Hospital Encounter [facility] CLINCONV Primitivo, Enrrique Hahn MD [address] [facility] 6A/6B/12A [place] [address] Localized osteoarthrosis, upper arm Social History Tobacco Use Types Packs/Day Years Used Date Smoking Tobacco: Never Assessed Sex and Gender Information Value Date Recorded Sex Assigned at Not on file Legal Sex Male 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
--- OUTSIDE RECORDS SUMMARY | 2024-08-27 08:05 | XMS_ITS | Encounter Summary ---
Author Organization [facility] Address [address] [facility] [place] [address] Care Team Providers Care Manager Pest Name Role Phone Lalo Dang MD Primary Care Provider [phone] Encounter Details Date Type Department Care Team (Late st Contact Info) Description 01/20/2019 Lab Requisition [facility] Care DermPath Lab [address] [facility], [place] [address] Lalo Dang MD [address] [place], [place] [id number] Social History Tobacco Use Types Packs/Day Years Used Date Smoking Tobacco: Never Assessed Sex and Gender Information Value Date Recorded Sex Assigned at Not on file Gender Identity Not on file Sexual Orientation Not on file documented as of this encounter Plan of Treatment Not on file documented as of this encounter Procedures Procedure Name Priority Date/Time Associated Diagnosis Comments DERMATOPATHOLOGY Routine 01/19/2019 12:0 0 AM CDT documented in this encounter Results * DERMATOPATHOLOGY (01/19/2019 12:00 AM CDT) Case Report Dermatopathology Report ? Case: [id number] ? Authorizing Provider: ??Lalo Dang MD ?Collected: ? 01/19/2019 12:00 AM ? Pathologist: ? Lili Palmer MD ? Received: ?01/20/2019 11:26 AM ? Specimens: ?? A) - Skin, right post lower scalp ? B) - Skin, right post lower scalp anteriorly ? C) - Skin, right post nape neck in hairline ? 9 12:27 PM T DERMATOPATHOLOGY LABORATORY Final Diagnosis Specimen A. SKIN, right post lower scalp: COMEDONE (L70.8) Specimen B. SKIN, right post lower scalp anteriorly: FOCAL HEALING SKIN CHANGES (L90.5) Specimen C. SKIN, right post nape neck in hairline: INTRADERMAL MELANOCYTIC NEVUS (D22.4) FOCAL HEALING SKIN CHANGES (L90.5) 9 12:27 PM T DERMATOPATHOLOGY LABORATORY Clinical History A-B: R/O BCC. C: R/O bite vs other. 9 12:27 PM T DERMATOPATHOLOGY LABORATORY Gross Description Specimen A: Received is one formalin filled container labeled with the patient's name and designated right post lower scalp. The specimen consists of a shave biopsy measuring 0m4r9mg. Jar 0. Specimen B: Received is one formalin filled container labeled with the patient's name and designated right post lower scalp anteriorly. The specimen consists of a shave biopsy measuring 3b4w8lv. Jar 0. Specimen C: Received is one formalin filled container labeled with the patient's name and designated right post nape neck in hairline. The specimen consists of a shave biopsy measuring 1t6h7di. Jar 0. 12:27 PM T DERMATOPATHOLOGY LABORATORY Microscopic Description Specimen A. SKIN, right post lower scalp: There is a dilated follicular infundibulum with keratinous plug. There is a crust of serum with neutrophils and bacteria and focal parakeratosis. Specimen B. SKIN, right post lower scalp anteriorly: There is focal epidermal hyperplasia beneath which there are vascular proliferation, fibroblasts, and an edematous stroma. Specimen C. SKIN, right post nape neck in hairline: There are nests of cytologically bland melanocytes within the dermis that mature with depth. Focally, there is epidermal hyperplasia beneath which there are vascular proliferation, fibroblasts, and an edematous stroma. 12:27 PM T DERMATOPATHOLOGY LABORATORY Disclaimer An external and internal positive and negative controls are appropriate for the histochemical, immunohistochemical and immunofluorescence stain(s) in this case (if any), except where stated explicitly. The performance characteristics of the stain(s) cited in this report were developed and its performance characteristic determined by the Dermatopathology Laboratory at [facility], directed by Dr. Risa Patel. These tests need not be, and therefore are not, approved by the [place] Food and Drug Administration. The tests are used for clinical purposes. Billing Codes Specimen Charges Stain Charges 58132 63778 56185 1 1 1 12:27 PM CDT DERMATOPATHOLOGY LABORATORY Embedded Images 12:27 PM CDT DERMATOPATHOLOGY LABORATORY Pathology/Cytology TISSUE SPECIMEN FROM SKIN / Unknown 01/19/2019 01/20/2019 11:26 AM CDT Miscellaneous samples (specimen) TISSUE SPECIMEN FROM SKIN / Unknown 01/19/2019 01/20/2019 11:26 AM CDT Miscellaneous samples (specimen) TISSUE SPECIMEN FROM SKIN / Unknown 01/19/2019 01/20/2019 11:26 AM CDT Lalo Dang MD LAB - PATHOLOGY/CYTO LOGY ORDERABLES DERMATOPATHOLOGY LABORATORY [facility] - Department of Dermatology [facility] [facility], 5th Floor Lab [address] [phone] documented in this encounter Visit Diagnoses Not on filedocumented in this encounter Care Teams Manager Pest Relationship Specialty Start Date End Date Lalo Dang MD [address] [place] [address] PCP - General Dermatology 07/10/23 documented as of this encounter
--- OUTSIDE RECORDS SUMMARY | 2024-08-27 08:05 | XMS_ITS | Encounter Summary ---
Author Organization [facility] Facility Care Team Providers Care Jacker Name Role Phone Beto Castillo MD Primary Care Provider [phone] Encounter Details Date Type Department Care Team (Latest Contact Info) Description 10/03/2015 8:09 AM ELECTRON BEAM MACHINE WELDER SETTER - 10/04/2015 9:55 AM ELECTRON BEAM MACHINE WELDER SETTER Hospital Encounter [facility] CLINCONV Funmilayo Avalos MD [address] [place] [address] Incisional hernia, with obstruction, without gangrene; Essential (primary) hypertension; Cigarette nicotine dependence, uncomplicated; Obstructive sleep apnea; Blindness of both eyes Social History Tobacco Use Types Packs/Day Years Used Date Smoking Tobacco: Never Assessed Sex and Gender Information Value Date Recorded Sex Assigned at Not on file Legal Sex Male 8:26 PM ELECTRON BEAM MACHINE WELDER SETTER Gender Identity Not on file Sexual Orientation Not on file documented as of this encounter Last Filed Vital Signs Vital Sign Reading Time Taken Comments Blood Pressure 161/97 10/04/2015 9:02 AM ELECTRON BEAM MACHINE WELDER SETTER Pulse 96 10/04/2015 9:02 AM ELECTRON BEAM MACHINE WELDER SETTER Temperature - - Respiratory Rate - - Oxygen Saturation - - Inhaled Oxygen Concentration - - Weight 108.1 kg (238 lb 5.1 oz) 016 10:13 AM ELECTRON BEAM MACHINE WELDER SETTER Height 182.9 cm (6' 0.01 ) 09/28/2015 1 0:13 AM ELECTRON BEAM MACHINE WELDER SETTER Body Mass Index 32.31 09/28/2015 10:13 AM ELECTRON BEAM MACHINE WELDER SETTER documented in this encounter Medications at Time of Discharge Medication Sig Dispense Quantity Refills Last Filled Start D ate End Date ibuprofen 200 mg capsule 200 mg. 0 0 08/13/2015 losartan-hydroCHLORO thiazide (HYZAAR) 100-12.5 mg per tablet 0 0 08/13/2015 documented as of this encounter Miscellaneous Notes * Op Note - Provider, MD Fly - 10/03/2015 12:00 AM CST Patient: AMMON RIZVI Account: [id number] Room No: 2462-A : 1960 Proc. Date: 10/03/2015 Surgeon: FUNMILAYO AVALOS M.D. Admit Date: 10/03/2015 Disch. Date: 10/04/2015 Patient Type: SDS Procedures: 1. Recurrent incisional hernia repair and umbilical hernia repair with 11 x [address] patch. 2. Removal of old mesh. Preoperative Diagnosis: Recurrent incisional hernia. Postoperative Diagnosis: Recurrent incisional hernia. Surgeon: Dr Avalos Editing Intern: Joseph Anesthesia: General. Brief Clinical History: A 54-year-old white male with prior umbilical hernia and recurrent hernia repair with a plug, has now had a new hernia to the right of his old incision. He presents for repair. Operative Findings: A 3 cm defect. Old plug was fibrotic and contracted. The omentum was scarred to this. There was omentum in the new hernia defect just lateral to the plug. There was a small umbilical hernia containing properitoneal fat. Description of Procedure: With the patient in supine position under satisfactory general anesthesia, the abdomen was prepped with ChloraPrep and draped sterilely. His old supraumbilical incision was elliptically excised. This was carried down with the Bovie electrocautery to the level of the hernia. The hernia sac was dissected free of surrounding tissue and opened. Omental adhesions were taken down with cautery. The sac was excised and portions submitted to Pathology. The old mesh was palpable medial to this. This was dissected free of surrounding tissue and was found to be collapsed and fibrotic. This was submitted to Pathology. The omentum had been plastered to the mesh as well and had been taken off with cautery. The omentum was examined. Bleeders were clamped and electrocoagulated. Properitoneal fat in the umbilical hernia was dissected out with cautery and discarded. The wound was irrigated. The edges were freshened with cautery. The wound was measured and an 11 x [address] patch was brought into the field. This had a minimum overlap of 4 cm and was used as an underlay. This was moistened with saline, tri-folded, placed into the abdomen with the long side longitudinally. The mesh was unfolded with the mesh side anteriorly and secured to the anterior abdominal wall through the securing pocket at the margins with secure strap tacker. Care was taken to be sure there was no intercurrent abdominal tissue or bowel. The anterior layer of mesh was secured to the posterior sheath and peritoneum circumferentially closer to the hernia edge with multiple interrupted simple 0 PDS sutures. The fascia was then closed with running buried 0 PDS beginning at either end. This was done transversely. The wound was anesthetized with 30 mL of 0.25 percent Marcaine. The wound was irrigated. Bleeders were electrocoagulated. The subcutaneous tissue was closed with 3-0 Monocryl in a buried running fashion. The skin was closed with 4-0 Monocryl in a running subcuticular fashion. Mastisol, Steri-Strips, and sterile dressings were applied. The patient tolerated the procedure well and was transferred to recovery in satisfactory condition. Estimated Blood Loss: Minimal. Counts: All reported as correct. Electronically Authenticated by: Funmilayo Avalos MD On 10/09/2015 06:47 AM ELECTRON BEAM MACHINE WELDER SETTER FUNMILAYO AVALOS M.D. Dictated by: FUNMILAYO AVALOS M.D. JOSE/valentina TD: 10/04/2015 16:29 documented in this encounter Plan of Treatment Not on file documented as of this encounter Procedures Procedure Name Priority Date/Time Associated Diagnosis Comments SURGICAL PATHOLOGY 10/03/2015 documented in this encounter Results * Surgical pathology (10/03/2015) Narrative 10/03/2015 Ordered by an unspecified provider. us Historical Provider LAB PATHOLOGY ORDERABLES Final Result documented in this encounter Visit Diagnoses Diagnosis Incisional hernia, with obstruction, without gangrene Essential (primary) hypertension Unspecified essential hypertension Cigarette nicotine dependence, uncomplicated Obstructive sleep apnea Obstructive sleep apnea (adult) (pediatric) Blindness of both eyes Blindness of both eyes, impairment level not further specified documented in this encounter Care Teams Jacker Relationship Specialty Start Date End Date Beto Castillo MD PCP - General 08/13/15 10/21/15 documented as of this encounter
--- OUTSIDE RECORDS SUMMARY | 2024-08-27 08:05 | XMS_ITS | Encounter Summary ---
Author Organization [facility] Address [address] [facility] [place] [address] Care Team Providers Care Junior Staff Accountant Name Role Phone Lalo Dang MD Primary Care Provider Encounter Details Date Type Department Care Team (Late st Contact Info) Description 07/17/2021 Lab Requisition [facility] [address] [facility] [place] [address] Lalo Dang MD [address] [place], [place] [id number] Social History Tobacco Use Types Packs/Day Years Used Date Smoking Tobacco: Never Assessed Sex and Gender Information Value Date Recorded Sex Assigned at Not on file Gender Identity Not on file Sexual Orientation Not on file documented as of this encounter Plan of Treatment Not on file documented as of this encounter Procedures Procedure Name Priority Date/Time Associated Diagnosis Comments DERMATOPATHOLOGY Routine 07/16/2021 12:0 0 AM CLIENT BUSINESS MANAGER documented in this encounter Results * DERMATOPATHOLOGY (07/16/2021 12:00 AM CLIENT BUSINESS MANAGER) Case Report Dermatopathology Report ? Case: [id number] ? Authorizing Provider: ??Lalo Dang MD ?Collected: ? 07/16/2021 12:00 AM ? Ordering Location: ? [facility] ?Received: ?07/17/2021 12:11 PM ? Pathologist: ? Chelsey Lisa MD ? Specimen: ?Skin, left distal anterior thigh ? 1:11 PM [facility] DERMATOPATHOLOGY LABORATORY Final Diagnosis Specimen A. SKIN, left distal anterior thigh: SQUAMOUS CELL CARCINOMA IN SITU (CARRERO'S DISEASE) (D04.72) NOT PRESENT AT SAMPLED MARGIN 1:11 PM [facility] DERMATOPATHOLOGY LABORATORY Clinical History R/O SCC, BCC, Carrero's, HAK. Check margins. 1:11 PM [facility] DERMATOPATHOLOGY LABORATORY Gross Description Specimen A: Received is one formalin filled container labeled with the patients name and designated left distal anterior thigh. The specimen consists of a shave removal measuring 44o33p7sk. The margin is inked green. Jar 0. 1:11 PM [facility] DERMATOPATHOLOGY LABORATORY Microscopic Description Specimen A. SKIN, left distal anterior thigh: The epidermis shows parakeratosis, full thickness disorderly maturation of keratinocytes, mitoses at different levels, and dyskeratotic cells. This lesion is not present at the sampled margin of the specimen. 1:11 PM [facility] DERMATOPATHOLOGY LABORATORY Disclaimer An external and internal positive and negative controls are appropriate for the histochemical, immunohistochemical and immunofluorescence stain(s) in this case (if any), except where stated explicitly. The performance characteristics of the stain(s) cited in this report were developed and its performance characteristic determined by the Dermatopathology Laboratory at [facility], directed by Dr. Risa Patel. These tests need not be, and therefore are not, approved by the [place] Food and Drug Administration. The tests are used for clinical purposes. Billing Codes Specimen Charges Stain Charges 08472 1 1 1:11 PM CLIENT BUSINESS MANAGER DERMATOPATHOLOGY LABORATORY Embedded Images 1 1:11 PM CLIENT BUSINESS MANAGER DERMATOPATHOLOGY LABORATORY Pathology/Cytolog y TISSUE SPECIMEN FROM SKIN / Unknown 07/16/2021 07/17/2021 12:11 PM CLIENT BUSINESS MANAGER Lalo Dang MD LAB - PATHOLOGY/CYTO LOGY ORDERABLES DERMATOPATHOLOGY LABORATORY [facility] - Department of Dermatology [facility] Medicine [address] [place] [address], [address] [phone] documented in this encounter Visit Diagnoses Not on filedocumented in this encounter Care Teams Junior Staff Accountant Relationship Specialty Start Date End Date Lalo Dang MD [address] [place] [address] PCP - General Dermatology 07/10/23 documented as of this encounter
--- OUTSIDE RECORDS SUMMARY | 2024-08-27 08:05 | XMS_ITS | Encounter Summary ---
Author Organization [facility] Facility Care Team Providers Care Line Haul Truck Driver Name Role Phone Unavailable Primary Care Provider Unavailabl e Encounter Details Date Type Department Care Team (Late st Contact Info) Description 06/12/2009 - 06/12/2009 11:59 PM CDT Hospital Encounter [facility] CLINCONV Primitivo, Enrrique Hahn MD [address] [facility] 6A/6B/12A [place] [address] Localized osteoarthrosis, shoulder region Social History Tobacco Use Types Packs/Day Years Used Date Smoking Tobacco: Never Assessed Sex and Gender Information Value Date Recorded Sex Assigned at Not on file 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
--- OUTSIDE RECORDS SUMMARY | 2024-08-27 08:05 | XMS_ITS | Encounter Summary ---
Author Organization [facility] Address [address] [facility] [place] [address] Care Team Providers Care Rate Inserter Name Role Phone Lalo Dang MD Primary Care Provider Encounter Details Date Type Department Care Team (Late st Contact Info) Description 06/26/2023 Lab Requisition [facility] - DermPath Lab [address] [facility] [place] [id number] Lalo Dang MD [address] [place] [address] Social History Tobacco Use Types Packs/Day Years Used Date Smoking Tobacco: Never Assessed Sex and Gender Information Value Date Recorded Sex Assigned at Not on file Gender Identity Not on file Sexual Orientation Not on file documented as of this encounter Plan of Treatment Not on file documented as of this encounter Procedures Procedure Name Priority Date/Time Associated Diagnosis Comments DERMATOPATHOLOGY Routine 06/24/2023 12:0 0 AM CDT documented in this encounter Results * DERMATOPATHOLOGY (06/24/2023 12:00 AM CDT) Case Report Dermatopathology Report ? Case: [id number] ? Authorizing Provider: ??Lalo Dang MD ?Collected: ? 06/24/2023 12:00 AM ? Ordering Location: ? [facility] DermPath Lab ? Received: ?06/26/2023 02:03 PM ? Pathologist: ? Chelsey Lisa MD ? Specimens: ?? A) - Skin, right distal ext ulnar forearm ? B) - Skin, left post neck just below hairline ? 3 1:26 PM [facility] DERMATOPATHOLOGY LABORATORY Final Diagnosis Specimen A. SKIN, right distal ext ulnar forearm: SQUAMOUS CELL CARCINOMA, KERATOACANTHOMA TYPE; SUPERFICIAL PORTIONS OF (C44.622) (see microscopic description) Specimen B. SKIN, left post neck just below hairline: HYPERPLASTIC (HYPERTROPHIC) ACTINIC KERATOSIS (L57.0) DERMAL FIBROSIS (L90.5) (see microscopic description) 3 1:26 PM [facility] DERMATOPATHOLOGY LABORATORY Clinical History A: R/O SCC B: R/O ISK 3 1:26 PM [facility] DERMATOPATHOLOGY LABORATORY Gross Description Specimen A: Received is one formalin filled container labeled with the patient's name and designated right distal ext ulnar forearm. The specimen consists of a shave biopsy measuring 8x8x2 mm. Jar 0. Specimen B: Received is one formalin filled container labeled with the patient's name and designated left post neck just below hairline. The specimen consists of a shave biopsy measuring 7x4x1 mm. Jar 0. 3 1:26 PM [facility] DERMATOPATHOLOGY LABORATORY Microscopic Description Specimen A. SKIN, right distal ext ulnar forearm: Sections show superficial portions of an endo exophytic crateriform lesion with a keratotic plug, formed by confluent follicle-like structures with relatively large keratinocytes and neutrophilic abscesses. Specimen B. SKIN, left post neck just below hairline: There is hyperkeratosis alternating with parakeratosis. There is epidermal hyperplasia with disorderly maturation of keratinocytes with nuclear pleomorphism confined to the lower half of the epidermis. There is focal dermal fibrosis. 3 1:26 PM [facility] DERMATOPATHOLOGY LABORATORY Disclaimer An external and internal positive and negative controls are appropriate for the histochemical, immunohistochemical and immunofluorescence stain(s) in this case (if any), except where stated explicitly. The performance characteristics of the stain(s) cited in this report were developed and its performance characteristic determined by the Dermatopathology Laboratory at [facility], directed by Dr. Risa Patel. These tests need not be, and therefore are not, approved by the [place] Food and Drug Administration. The tests are used for clinical purposes. Billing Codes Specimen Charges Stain Charges 51324 10907 1 1 3 1:26 PM [facility] DERMATOPATHOLOGY LABORATORY Embedded Images 3 1:26 PM [facility] DERMATOPATHOLOGY LABORATORY Pathology/Cytology TISSUE SPECIMEN FROM SKIN / Unknown 06/24/2023 06/26/2023 2:03 PM CDT Miscellaneous samples (specimen) TISSUE SPECIMEN FROM SKIN / Unknown 06/24/2023 06/26/2023 2:03 PM CDT Lalo Dang MD LAB - PATHOLOGY/CYTO LOGY ORDERABLES DERMATOPATHOLOGY LABORATORY [facility] - Department of Dermatology [facility] Specialized Medicine [address] [place] [address], [address] [phone] documented in this encounter Visit Diagnoses Not on filedocumented in this encounter Care Teams Rate Inserter Relationship Specialty Start Date End Date Lalo Dang MD [address] [place] [address] PCP - General Dermatology 07/10/23 documented as of this encounter
--- OUTSIDE RECORDS SUMMARY | 2024-08-27 08:05 | XMS_ITS | Referral Summary ---
Author Organization [facility] Address [address] [place] [address] Care Team Providers Care Geodetic Survey Director Name Role Phone Beto Castillo MD Primary Care Provider + [phone] Allergies No known active allergies Medications ibuprofen [...] on file Legal Sex Male 8:[address] Gender Identity Not on file Sexual Orientation Not on file Last Filed Vital Signs Vital Sign Reading Time Taken Comments Blood Pressure 138/100 10/24/2015 10:[address] [employer]ICE Pulse 96 10/04/2015 9:[address] [employer] Temperature - - Respiratory Rate - - Oxygen Saturation - - Inhaled Oxygen Concentration - - Weight 109.6 kg (241 lb 9.6 oz) 11/18/2023 3:06 PM CDT Height 182.9 cm (6') 11/18/2023 3:06 PM CDT Body Mass Index 32.77 11/18/2023 3:06 PM CDT Plan of Treatment Not on file Insurance MEDICARE SOLUTIONS MEDICARE SOLUTIONS Care Teams Geodetic Survey Director Relationship Specialty Start Date End Date Beto Castillo MD PCP - General 10/22/15
--- OUTSIDE RECORDS SUMMARY | 2024-08-27 08:05 | XMS_ITS | Encounter Summary ---
Author Organization [facility] Address [address] [place] [address] Phone Care Team Providers Care Housekeeping Cleaner Name Role Phone Beto Castillo MD Primary Care Provider + [phone] Reason for Visit * Consultation (Routine) - Authorized Specialty Diagnoses / Procedures Referred By Contkarma t Referred To Contact Speech Therapy Diagnoses Dysphagia, unspecified type Sylwia Miller MD [address] [place] [address] Phone: tel: fax: [facility] (All Locations) Referral ID Status Reason Start Date Expiration Date Visits Requested Visits Authorized [id number] Authorized Evaluate and Treat 11/18/2023 12/17/2024 24 Encounter Details Date Type Department Care Team (Late st Contact Info) Description 01/14/2024 9:00 AM CDT Therapy [facility] Otolaryngology [address] [place] [address] Medical Office Building [address] [place] [address] Gina Deluna SLP [address] [place] [address] Throat discomfort (Primary Dx); Throat clearing Social History Tobacco Use Types Packs/Day Years [...] on file 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 male who is following up for throat discomfort as well as a mucus retention cyst. Today the patient reported: Throat discomfort, 95% better, usually triggered by eating spicy foods, allergies, or laying down after eating Throat clear, improved, usually drinks something to help with what is remaining EVALUATION: Clinician???s Perceptual Assessment (66060): The Consensus Auditory-Perceptual Evaluation of Voice (CAPE-V) [...] 75-89= severe; 90-100= profound. This revealed: Os: 20/100, C R: 15/100, C B: 0/100, C S: 15/100, C Fo: 0/100, C Io: 0/100, C CAPE-V Dysphonia Severity Rating (determined by Os above): Mild (10-20) Mild to moderate (21-34) Moderate (35-49) Moderate to severe (50-74) Severe (75-89) Profound (90-100) IMPRESSIONS & PLAN OF CARE: This is a 63 y.o. adult with diagnosis of throat discomfort and throat clearing. At this time, his throat clear is not bothersome, but if it bothers him more in the future, then he would be a candidate for therapy to help with throat clear control. This treatment plan was developed with the patient, who expressed an understanding of my recommendations. Percent of Functional Voice Patient is approximately 100% functional as determined by objective and subjective voice evaluationand the [place] [employer] outcome measurement Level 7 Level 1: 0-10% functional: Voice is not [...] Voice is occasionally limited in low demand situations Level 5: 71-80% functional: Voice occasionally sounds normal. Situational variation. Voice is rarely limited in low demand situations. Level 6: 81-95% functional: Voice sounds normal most of the time. Never limited in low demand situations. Occasionally limited in high demand situations Level 7: 95-100% functional: Voice is normal in all situations. GREY WASHER GOALS: Patient will demonstrate improved ease and quality of voice production with 80% accuracy into conversational speech independently with self-corrections. Patient will demonstrate improved ease and quality of voice production with 80% accuracy into higher level vocal tasks independently with self-corrections. Patient will demonstrate reduced throat clearing/coughing with self-corrections independently with 80% accuracy as judged by clinician and patient self-report. Patient will demonstrate improved voice physiology during voicing via repeat laryngeal exam, auditory perceptual rating scales, and/or patient-reported outcome measures SHORT-TERM GOALS: Patient will demonstrate improved coordination of breathing and phonation with improved oral resonance and reduced perilaryngeal tension at the phoneme level with 80% accuracy. Patient will demonstrate improved coordination of breathing and phonation with improved oral resonance and reduced perilaryngeal tension at the word level with 80% accuracy. Patient will demonstrate improved coordination of breathing and phonation with improved oral resonance and reduced perilaryngeal tensionat the phrase/sentence level with 80% accuracy. Patient will demonstrate improved coordination of breathing and phonation with improved oral resonance and reduced perilaryngeal tension in brief conversation with 80% accuracy. Patient will demonstrate improved coordination of breathing and phonation with improved oral resonance and reduced perilaryngeal tension in higher level vocal tasks with 80% accuracy. Note dictated with voice recognition software. Mild fleet driver variances may occur. Gina Deluna MM, MS, CCC-METHODS TIME ANALYST documented in this encounter Plan of Treatment Not on file documented as of this encounter Visit Diagnoses Diagnosis Throat discomfort- Primary Throat pain Throat clearing Other symptoms involving head and neck documented in this encounter Care Teams Housekeeping Cleaner Relationship Specialty Start Date End Date Beto Castillo MD PCP - General 10/22/15 documented as of this encounter
--- OUTSIDE RECORDS SUMMARY | 2024-08-27 08:05 | XMS_ITS | Encounter Summary ---
Author Organization [facility] Address [address] [facility] [address] [place] [address] Phone Care Team Providers Care Urban Redevelopment Specialist Name Role Phone Beto Castillo MD Primary Care Provider + [phone] Reason for Referral * Procedure (Routine) - Authorized Specialty Diagnoses / Procedures Referred By Contac t Referred To Contact Diagnoses Chronic obstructive pulmonary disease, unspecified COPD type (HCC) Procedures Pulmonary Function Test -[facility] Adult PFT Lab- [facility]-8D; Spirometry, Oxygen Assessment Titration, ABG, Lung Volumes, Spirometry with Bronchodilator, DLCO; Pleth with Airway Resistance; Room Air ABG; Spirometry Medhat Leavitt MD [address] [place] [address] Phone: tel: fax: Referral ID Status Reason Start Date Expiration Date V isits Requested Visits Authorized [id number] Authorized 09/15/2023 10/14/2024 1 1 OR VICE PRESIDENT AND CHIEF INFORMATION OFFICER Encounter Details Date Type Department Care Team (Late st Contact Info) Description 09/15/2023 Orders Only [facility] Pulmonary [address] [facility] Medicine 8th [place] [address] [place] [address] Anupam Cannon RN Chronic obstructive pulmonary disease, unspecified COPD type [...] on file Legal Sex Male 8:26 PM SENIOR VICE PRESIDENT AND CHIEF INFORMATION OFFICER Gender Identity Not on file Sexual Orientation Not on file documented as of this encounter Progress Notes * Anupam Cannon, HILL - 09/15/2023 11:17 AM CST Ordered IOV testing for Dr. Headley. OR VICE PRESIDENT AND CHIEF INFORMATION OFFICER documented in this encounter Plan of Treatment Scheduled Orders Name Type Priority Associated Diagnoses Orde r Schedule Pulmonary Function Test -[facility]FT [facility]- [facility]-8D; Spirometry, Oxygen Assessment Titration, ABG, Lung Volumes, Spirometry with Bronchodilator, DLCO; Pleth with Airway Resistance; Room Air ABG; Spirometry PFT Routine Chronic obstructive pulmonary disease, unspecified COPD type (CMS/HCC) 1 Occurrences starting 09/15/2023 until 09/15/2024 X-ray chest 2 views Imaging Schedule Dmitri Mckeon Routine (OP Routine) Chronic obstructive pulmonary disease, unspecified COPD type (CMS/HCC) Expected: 09/15/2023, Expires: 09/15/2024 documented as of this encounter Visit Diagnoses Diagnosis Chronic obstructive pulmonary disease, unspecified COPD type (HCC)- Primary documented in this encounter Care Teams Urban Redevelopment Specialist Relationship Specialty Start Date End Date Beto Castillo MD PCP - General 10/22/15 documented as of this encounter
--- OUTSIDE RECORDS SUMMARY | 2024-08-27 08:05 | XMS_ITS | Encounter Summary ---
Author Organization [facility] Facility Care Team Providers Care Television Maintenance Worker Name Role Phone Unavailable Primary Care Provider Unavailabl e Encounter Details Date Type Department Care Team (Late st Contact Info) Description 01/16/2009 - 01/16/2009 11:59 PM CDT Hospital Encounter [facility] CLINCONV Primitivo, Enrrique Hahn MD [address] [facility] [address]6B[address]12A [place] [address] Localized osteoarthrosis, shoulder region Social History Tobacco Use Types Packs/Day Years Used Date Smoking Tobacco: Never Assessed Sex and Gender Information Value Date Recorded Sex Assigned at Not on file Legal Sex Male 8:26 PM CARD DOFFER Gender Identity Not on file Sexual Orientation Not on file documented as of this encounter Plan of Treatment Not on file documented as of this encounter Visit Diagnoses Diagnosis Localized osteoarthrosis, shoulder region Localized osteoarthrosis not specified whether primary or secondary, shoulder region documented in this encounter
--- OUTSIDE RECORDS SUMMARY | 2024-08-27 08:06 | XMS_ITS | Encounter Summary ---
Author Organization [facility] Facility Care Team Providers Care Biologist Aide Name Role Phone Unavailable Primary Care Provider Unavailabl e Encounter Details Date Type Department Care Team (Late st Contact Info) Description 05/11/2007 - 05/11/2007 11:59 PM CDT Hospital Encounter [facility] CLINCONAngel Langford, Enrrique Hahn MD [address] [facility] [address]6B[address] [address] Social History Tobacco Use Types Packs/Day Years Used Date Smoking Tobacco: Never Assessed Sex and Gender Information Value Date Recorded Sex Assigned at Not on file Legal Sex Male 8:26 PM GLOVE FACTORY SEWER Gender Identity Not on file Sexual Orientation Not on file documented as of this encounter Plan of Treatment Not on file documented as of this encounter Visit Diagnoses Not on filedocumented in this encounter
--- OUTSIDE RECORDS SUMMARY | 2024-08-27 08:06 | XMS_ITS | Encounter Summary ---
Author Organization [facility] Facility Care Team Providers Care Payroll Officer Name Role Phone Unavailable Primary Care Provider Unavailabl e Encounter Details Date Type Department Care Team (Late st Contact Info) Description 12/14/2006 - 12/14/2006 11:59 PM CDT Hospital Encounter [facility] CLINCONAngel Langford, Enrrique Hahn MD [address] [facility] [address]6B[address]A [place] [address] Social History Tobacco Use Types Packs/Day Years Used Date Smoking Tobacco: Never Assessed Sex and Gender Information Value Date Recorded Sex Assigned at Not on file Legal Sex Male 8:26 PM SINGLE POINTED OPERATOR Gender Identity Not on file Sexual Orientation Not on file documented as of this encounter Plan of Treatment Not on file documented as of this encounter Visit Diagnoses Not on filedocumented in this encounter
--- OUTSIDE RECORDS SUMMARY | 2024-08-27 08:06 | XMS_ITS | Encounter Summary ---
Author Organization [facility] Facility Care Team Providers Care Buffing And Sueding Machine Operator Name Role Phone Unavailable Primary Care Provider Unavailabl e Encounter Details Date Type Department Care Team (Late st Contact Info) Description 02/14/2008 10:44 AM CDT - 02/15/2008 9:19 AM CDT Hospital Encounter [facility] Judith Vega MD [address] [facility] [address] [place] [address] Social History Tobacco Use Types Packs/Day Years Used Date Smoking Tobacco: Never Assessed Sex and Gender Information Value Date Recorded Sex Assigned at Not on file Legal Sex Male 8:26 PM PERFORMANCE IMPROVEMENT DIRECTOR Gender Identity Not on file Sexual Orientation Not on file documented as of this encounter Plan of Treatment Not on file documented as of this encounter Visit Diagnoses Not on filedocumented in this encounter
--- OUTSIDE RECORDS SUMMARY | 2024-08-27 08:06 | XMS_ITS | Encounter Summary ---
Author Organization [facility] Facility Care Team Providers Care Multiple Knife Edge Trimmer Operator Name Role Phone Unavailable Primary Care Provider Unavailabl e Encounter Details Date Type Department Care Team (Late st Contact Info) Description 12/22/2008 - 12/22/2008 11:59 PM CDT Hospital Encounter [facility] CLINCONV Primitivo, Enrrique Hahn MD [address] [facility] 6A[address]6B[address]12A [place] [address] Localized osteoarthrosis, shoulder region Social History Tobacco Use Types Packs/Day Years Used Date Smoking Tobacco: Never Assessed Sex and Gender Information Value Date Recorded Sex Assigned at Not on file Legal Sex Male 8:26 PM SPECIAL EDUCATION PROFESSOR Gender Identity Not on file Sexual Orientation Not on file documented as of this encounter Plan of Treatment Not on file documented as of this encounter Visit Diagnoses Diagnosis Localized osteoarthrosis, shoulder region Localized osteoarthrosis not specified whether primary or secondary, shoulder region documented in this encounter
--- OUTSIDE RECORDS SUMMARY | 2024-08-27 08:06 | XMS_ITS | Continuity of Care Document ---
Author Organization [facility] Address [address] [place] [address] Phone Care Team Providers Care Road Contractor Name Role Phone Perrin OD, Anupam Unavailable Unavailable Advance Directives Directive Yes / No Effective Date File Name No Information Encounters Encounter Description Practice Location Reason(s) For Visit Diagnoses Date Provider Providers Copied on Encounter [facility], [address], [place], [place], [id number], [place] tel:[phone] [facility] No Information 1-200 6 Perrin OD Anupam. [address] , [address], [place], [address], [place]. tel:[phone] Family History Family Member Type Diagnosis Age At Onset No Information Payers Payer name Insurance type Covered republican ID Authoriza tion(s) [place] [id number] Social History Type Description Quantity Date Captured Comments Sex Male Smoking Status No Information Chief Complaint And Reason For Visit No Information Reason For Referral Reason For Referral No Information History Of Present Illness Encounter Date Complaint History Of Prese nt Illness No Information Functional Status Date Functional Assessmen t No Information Instructions Date Instruction Additional Infor mation No Information Assessments Type Assessment Date No Information Patient Care Teams Name Effective Dates (start - stop) Status Members No Information
--- OUTSIDE RECORDS SUMMARY | 2024-08-27 08:06 | XMS_ITS | Encounter Summary ---
Author Organization [facility] Facility Care Team Providers Care Barrel Waterer Name Role Phone Unavailable Primary Care Provider Unavailabl e Encounter Details Date Type Department Care Team (Late st Contact Info) Description 09/07/2007 - 09/07/2007 11:59 PM TRAIN CALLER Hospital [facility] Langford, Enrrique Hahn MD [address] [facility] 6A/6B/12A [place] [address] Social History Tobacco Use Types Packs/Day Years Used Date Smoking Tobacco: Never Assessed Sex and Gender Information Value Date Recorded Sex Assigned at Not on file Legal Sex Male 8:26 PM TRAIN CALLER Gender Identity Not on file Sexual Orientation Not on file documented as of this encounter Plan of Treatment Not on file documented as of this encounter Visit Diagnoses Not on filedocumented in this encounter
--- OUTSIDE RECORDS SUMMARY | 2024-08-27 16:55 | XMS_ITS | Clinical Summary ---
Author Organization [facility] Address [address] [place] [address] Care Team Providers Care Multiple Coil Winder Name Role Phone Lalo Dang MD Primary Care Provider Source Comments [facility],non-owned Affiliates and Associated Physician Practices is amultiple site organization consisting of ambulatory clinics and hospital sitesin [place], [place], [place] and [place]. This disclosure is being madepursuant to the Care Everywhere program and may not contain all information available regarding this patient. Last updated 18.[facility] Medications * Be aware that medications may [...] age to complete this topic Care Teams Multiple Coil Winder Relationship Specialty Start Date End Date Lalo Dang MD [address] [place] [address] PCP - General Dermatology 07/10/23
--- OUTSIDE RECORDS SUMMARY | 2024-08-27 16:55 | XMS_ITS | Clinical Summary ---
Author Organization [facility] Address [address] [place] [address] Care Team Providers Care Cell Operation Supervisor Name Role Phone Beto Castillo MD Primary Care Provider + [phone] Allergies No known active allergies Medications ibuprofen [...] file Legal Sex Male 8:26 PM SENIOR INSIGHT MANAGER INTERNATIONAL Gender Identity Not on file Sexual Orientation Not on file Obstetrics History Last Filed Vital Signs Vital Sign Reading Time Taken Comments Blood Pressure 138/100 10/24/2015 10:03 AM SENIOR INSIGHT MANAGER INTERNATIONAL Pulse 96 10/04/2015 9:02 AM SENIOR INSIGHT MANAGER INTERNATIONAL Temperature - - Respiratory Rate - - [...] Td or Tdap) 02/07/2029 Insurance MEDICARE SOLUTIONS [facility] MEDICARE Address: [facility] [address] [place] [address] MEDICARE SOLUTIONS Care Teams Cell Operation Supervisor Relationship Specialty Start Date End Date Beto Castillo MD PCP - General 10/22/15
--- OUTSIDE RECORDS SUMMARY | 2024-08-27 16:55 | XMS_ITS | Continuity of Care Document ---
Author Organization [facility] Address [address] [place] [address] Phone Care Team Providers Care Stud Beef Cattle Farmer Name Role Phone Perrin OD, Anupam Unavailable Unavailable Advance Directives Directive Yes / No Effective Date File Name No Information Encounters Encounter Description Practice Location Reason(s) For Visit Diagnoses Date Provider Providers Copied on Encounter [facility], [address], [place], [place], [id number], [place] tel:[phone] [facility]3] No Information 1-[address] 6 Perrin OD Anupam. [address] , [address], [place], [address], [place]. tel:[phone] Family History Family Member Type Diagnosis Age At Onset No Information Payers Payer name Insurance type Covered libertarian ID Authoriza tion(s) Medicare [place] MB [id number] Social History Type Description Quantity Date Captured [...]
--- OUTSIDE RECORDS SUMMARY | 2024-08-27 16:55 | XMS_ITS | Encounter Summary ---
Author Organization [facility] Address [address] [place] [address] Care Team Providers Care Coo & Co Founder Name Role Phone Lalo Dang MD Primary Care Provider [phone] Reason for Visit * Reason Onset Date Comments Appointment 07/08/2023 Encounter Details Date Type Department Care Team (Late st Contact Info) Description 07/08/2023 Telephone [facility] - Dermatology [address] [place] [address] Holley Yee MD [address] [facility] [address] [place] [address] Appointment Social History Tobacco Use Types Packs/Day Years Used Date Smoking Tobacco: Never Assessed Sex and Gender Information Value Date Recorded Sex Assigned at Not on file Gender Identity Not on file Sexual Orientation Not on file documented as of this encounter Miscellaneous Notes * Telephone Encounter - Holley Yee MD - 07/08/2023 9:12 PM CST Same day Mohs for A please. Holley Yee MD [id number] Final Diagnosis Specimen A. SKIN, right distal ext ulnar forearm: SQUAMOUS CELL CARCINOMA, KERATOACANTHOMA TYPE; SUPERFICIAL PORTIONS OF (C44.622) (see microscopic description) DIFIER OPERATOR documented in this encounter Plan of Treatment Not on file documented as of this encounter Visit Diagnoses Not on filedocumented in this encounter Care Teams Coo & Co Founder Relationship Specialty Start Date End Date Lalo Dang MD [address] [place] [address] PCP - General Dermatology 07/10/23 documented as of this encounter
--- OUTSIDE RECORDS SUMMARY | 2024-08-27 16:55 | XMS_ITS | Referral Summary ---
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 Gender Identity Not on file Sexual Orientation Not on file Last Filed Vital Signs Vital Sign Reading Time Taken Comments Blood Pressure 138/100 10/24/2015 10:03 AM ATTIC FANS MECHANIC Pulse 96 10/04/2015 9:02 AM ATTIC FANS MECHANIC Temperature - - Respiratory Rate - - Oxygen Saturation - - Inhaled Oxygen Concentration - - Weight 109.6 kg (241 lb 9.6 oz) 11/18/2023 3:06 PM CDT Height 182.9 cm (6') 11/18/2023 3:06 PM CDT Body Mass Index 32.77 11/18/2023 3:06 PM CDT Plan of Treatment Not on file Insurance MEDICARE SOLUTIONS MEDICARE SOLUTIONS Care Teams Business Operations Coordinator Relationship Specialty Start Date End Date Beto Castillo MD PCP - General 10/22/15
--- OUTSIDE RECORDS SUMMARY | 2024-08-27 16:55 | XMS_ITS | Encounter Summary ---
Author Organization [facility] Address [address] [place] [address] Phone Care Team Providers Care Cardiac Cath Technologist Name Role Phone Beto Castillo MD Primary Care Provider + [phone] Reason for Visit * Consultation (Routine) - Authorized Specialty Diagnoses / Procedures Referred By Contac t Referred To Contact Speech Therapy Diagnoses Dysphagia, unspecified type Sylwia Miller MD [address] [place] [address] Phone: tel: fax: [facility] (All Locations) Referral ID Status Reason Start Date Expiration Date Visits Requested Visits Authorized [id number] Authorized Evaluate and Treat 11/18/2023 12/17/2024 24 24 Encounter Details Date Type Department Care Team (Late st Contact Info) Description 11/18/2023 3:20 PM CDT Therapy [facility] Otolaryngology [address] [place] [address] Medical Office Building [address] [place] [address] Arcelia Mcdonald, JESUS [address] [place] [address] Throat discomfort (Primary Dx); Dysphagia, [...] on file 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 OBJECTIVE: Clinician???s Perceptual Assessment (23271): The Consensus Auditory-Perceptual Evaluation of Voice (CAPE-V) [...] and subjective voice evaluation based on the [place] Speech Language Hearing Association National Outcomes Measurement [...] with laryngology in 2 months; no other [employer] intervention at this time Note dictated with voice recognition software. Mild manager of enterprise variances may occur. Arcelia Mcdonald MA, [facility] documented in this encounter Plan of Treatment Not on file documented as of this encounter Visit Diagnoses Diagnosis Throat discomfort- Primary Throat pain Dysphagia, unspecified type documented in this encounter Orders Outpatient Referral Count Last Ordered Date Fir st Ordered Date AMB REFERRAL ORDER TO SPEECH THERAPY 1 10/23 documented in this encounter Care Teams Cardiac Cath Technologist Relationship Specialty Start Date End Date Beto Castillo MD PCP - General 10/22/15 documented as of this encounter
--- OUTSIDE RECORDS SUMMARY | 2024-08-27 16:55 | XMS_ITS | Encounter Summary ---
Author Organization [facility] Address [address] [facility] [place] [address] Care Team Providers Care Prescription Eyeglass Maker Name Role Phone Lalo Dang MD Primary Care Provider Encounter Details Date Type Department Care Team (Late st Contact Info) Description 06/26/2023 Lab Requisition [facility] - DermPath Lab [address] [facility], [place] [id number] Lalo Dang MD [address] [place] [address] Social History Tobacco Use Types Packs/Day Years [...] CDT) Case Report Dermatopathology Report ? Case: [id number] ? Authorizing Provider: ??Lalo Dang MD ?Collected: ? 06/24/2023 12:00 AM ? Ordering Location: ? [facility] DermPath Lab ? Received: ?06/26/2023 02:03 PM ? Pathologist: ? Chelsey Lisa MD ? Specimens: ?? A) - Skin, right distal ext ulnar forearm ? B) - Skin, left post neck just below hairline ? 3 1:26 PM [facility] DERMATOPATHOLOGY LABORATORY Final Diagnosis Specimen A. SKIN, right distal ext ulnar forearm: SQUAMOUS CELL CARCINOMA, KERATOACANTHOMA TYPE; SUPERFICIAL PORTIONS OF (C44.622) (see microscopic description) Specimen B. SKIN, left post neck just below hairline: HYPERPLASTIC (HYPERTROPHIC) ACTINIC KERATOSIS (L57.0) DERMAL FIBROSIS (L90.5) (see microscopic description) 3 1:26 PM [facility] DERMATOPATHOLOGY LABORATORY Clinical History A: R/O SCC B: R/O ISK 3 1:26 PM [facility] DERMATOPATHOLOGY LABORATORY Gross Description Specimen [...] 7x4x1 mm. Jar 0. 3 1:26 PM [facility] DERMATOPATHOLOGY LABORATORY Microscopic Description Specimen [...] is focal dermal fibrosis. 3 1:26 PM [facility] DERMATOPATHOLOGY LABORATORY Disclaimer An external and internal positive and negative controls are appropriate for the histochemical, immunohistochemical and immunofluorescence stain(s) in this case (if any), except where stated explicitly. The performance characteristics of the stain(s) cited in this report were developed and its performance characteristic determined by the Dermatopathology Laboratory at [facility], directed by Dr. Risa Patel. These tests need not be, and therefore are not, approved by the [place] Food and Drug Administration. The tests are used for clinical purposes. Billing Codes Specimen Charges Stain Charges 42803 62598 1 1 3 1:26 PM [facility] DERMATOPATHOLOGY LABORATORY Embedded Images 3 1:26 PM [facility] DERMATOPATHOLOGY LABORATORY Pathology/Cytology TISSUE SPECIMEN FROM SKIN / Unknown 06/24/2023 06/26/2023 2:03 PM CDT Miscellaneous samples (specimen) TISSUE SPECIMEN FROM SKIN / Unknown 06/24/2023 06/26/2023 2:03 PM CDT Lalo Dang MD LAB - PATHOLOGY/CYTO LOGY ORDERABLES DERMATOPATHOLOGY LABORATORY [facility] - Department of Dermatology [facility] Specialized Medicine [address] [place] [address], [address] [phone] documented in this encounter Visit Diagnoses Not on filedocumented in this encounter Care Teams Prescription Eyeglass Maker Relationship Specialty Start Date End Date Lalo Dang MD [address] [place] [address] PCP - General Dermatology 07/10/23 documented as of this encounter
--- OUTSIDE RECORDS SUMMARY | 2024-08-27 16:55 | XMS_ITS | Encounter Summary ---
Author Organization [facility] Address [address] [place] [address] Phone Care Team Providers Care Brass Wind Instrument Maker Name Role Phone Beto Castillo MD Primary Care Provider + [phone] Reason for Visit * Consultation (Routine) - Authorized Specialty Diagnoses / Procedures Referred By Contkarma t Referred To Contact Speech Therapy Diagnoses Dysphagia, unspecified type Sylwia Miller MD [address] [place] [address] Phone: tel: fax: [facility] (All Locations) Referral ID Status Reason Start Date Expiration Date Visits Requested Visits Authorized [id number] Authorized Evaluate and Treat 11/18/2023 12/17/2024 24 Encounter Details Date Type Department Care Team (Late st Contact Info) Description 01/14/2024 9:00 AM CDT Therapy [facility] Otolaryngology [address] [place] [address] Medical Office Building [address] [place] [address] Gina Deluna SLP [address] [place] [address] Throat discomfort (Primary Dx); Throat [...] on file 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 Gender Identity Not on file Sexual Orientation Not on file documented as of this encounter Progress Notes * Gina Deluna, JESUS - 01/14/2024 9:00 AM CDT [facility] Department of Otolaryngology-Head and Neck Surgery Gina Deluna, MM, MS, [facility]-ICT DEVELOPMENT MANAGER Speech Pathology - Multidisciplinary Clinic Note Re-evaluation [...] what is remaining EVALUATION: Clinician???s Perceptual Assessment (03998): The Consensus Auditory-Perceptual Evaluation of Voice (CAPE-V) [...] by objective and subjective voice evaluationand the [place] Speech Language Hearing Association outcome measurement Level [...] functional: Voice is normal in all situations. WAITER/WAITRESS ROOM SERVICE GOALS: Patient will demonstrate improved ease and [...] Note dictated with voice recognition software. Mild insole buffer variances may occur. Gina Deluna MM, MS, [employer]-ICT DEVELOPMENT MANAGER documented in this encounter Plan of Treatment Not on file documented as of this encounter Visit Diagnoses Diagnosis Throat discomfort- Primary Throat pain Throat clearing Other symptoms involving head and neck documented in this encounter Care Teams Brass Wind Instrument Maker Relationship Specialty Start Date End Date Beto Castillo MD PCP - General 10/22/15 documented as of this encounter
--- OUTSIDE RECORDS SUMMARY | 2024-08-27 16:55 | XMS_ITS | Encounter Summary ---
Author Organization [facility] Address [address] [facility] [place] [address] Care Team Providers Care Honing Machine Operator Production Name Role Phone Lalo Dang MD Primary Care Provider Encounter Details Date Type Department Care Team (Late st Contact Info) Description 01/20/2019 Lab Requisition [facility] DermPath Lab [address] [facility], [place] [address] Lalo Dang MD [address] [place], [place] [id number] Social History Tobacco Use Types Packs/Day Years [...] CDT) Case Report Dermatopathology Report ? Case: [id number] ? Authorizing Provider: ??Lalo Dang MD ?Collected: [...] specimen consists of a shave biopsy measuring 9l2u1gt. Jar 0. Specimen B: Received is one formalin filled container labeled with the patient's name and designated right post lower scalp anteriorly. The specimen consists of a shave biopsy measuring 4y1f6wu. Jar 0. Specimen C: Received is one formalin filled container labeled with the patient's name and designated right post nape neck in hairline. The specimen consists of a shave biopsy measuring 4c0e6tl. Jar 0. 12:27 PM T DERMATOPATHOLOGY LABORATORY [...] characteristic determined by the Dermatopathology Laboratory at [facility], directed by Dr. Risa Patel. These tests need not be, and therefore are not, approved by the [place] Food and Drug Administration. The tests are used for clinical purposes. Billing Codes Specimen Charges Stain Charges 11649 91084 59229 1 1 1 12:27 PM CDT DERMATOPATHOLOGY [...] LAB - PATHOLOGY/CYTO LOGY ORDERABLES DERMATOPATHOLOGY LABORATORY [facility] - Department of Dermatology [facility] [facility], 5th Floor Lab [address] [phone] documented in this encounter Visit Diagnoses Not on filedocumented in this encounter Care Teams Honing Machine Operator Production Relationship Specialty Start Date End Date Lalo Dang MD [address] [place] [address] PCP - General Dermatology 07/10/23 documented as of this encounter
--- OUTSIDE RECORDS SUMMARY | 2024-08-27 16:55 | XMS_ITS | Patient Health Summary ---
Author Organization [facility] [employer] Address [address] [place] [address] Care Team Providers Care Cement Mason Apprentice Name Role Phone Lalo Dang MD Primary Care Provider Note from [facility],non-owned Affiliates and Associated Physician Practices is amultiple site organization consisting of ambulatory clinics and hospital sitesin [place], [place], [place] and [place]. This disclosure is being madepursuant to the Care Everywhere program and may not contain all information available regarding this patient. Last updated 18.[facility] Medications * Be aware that medications may [...] on file Procedures * DERMATOPATHOLOGY(Performed 02/16/2024) * [place] EXC SKIN MALIG 2.1-3CM REMAINDR BODY(Performed 07/10/2023) Performed for Squamous cell carcinoma, arm, right * [place] INTMD WND REPAIR TRUNK,ARM,LEG 2.6-7.5(Performed 07/10/2023) Performed for Squamous cell carcinoma, arm, right * DERMATOPATHOLOGY(Performed 07/10/2023) Performed for Squamous cell carcinoma, arm, right * DERMATOPATHOLOGY(Performed 06/24/2023) * DERMATOPATHOLOGY(Performed 07/16/2021) * DERMATOPATHOLOGY(Performed 01/19/2019) * DERMATOPATHOLOGY(Performed 08/01/2011) Results * DERMATOPATHOLOGY (02/16/2024 12:00 AM CDT) Only the most recent of6 resultswithin the time period is included. Case Report Dermatopathology Report ? Case: [id number] ? Authorizing Provider: ??Lalo Dang MD ?Collected: [...] characteristic determined by the Dermatopathology Laboratory at [facility], directed by Dr. Risa Patel. These tests need not be, and therefore are not, approved by the [place] Food and Drug Administration. The tests are used for clinical purposes. Billing Codes Specimen Charges Stain Charges 97426 1 4 1:47 PM CDT DERMATOPATHOLOGY LABORATORY Embedded Images 1:47 PM CDT DERMATOPATHOLOGY LABORATORY Pathology/Cytolog y TISSUE SPECIMEN FROM SKIN / Unknown 02/16/2024 02/18/2024 10:45 AM CDT Lalo Dang MD LAB - PATHOLOGY/CYTO LOGY ORDERABLES DERMATOPATHOLOGY LABORATORY [facility] - Department of Dermatology [address], [address] [phone] * [place] INTMD WND REPAIR TRUNK,ARM,LEG 2.6-7.5, [place] EXC SKIN MALIG 2.1-3CM REMAINDR BODY (07/10/2023 1:55PM DIVISION ROAD SUPERVISOR) Narrative David Lance MD - 07/10/2023 1:[address] SUPERVISOR David Lance MD ? 07/10/2023 ??2:38 PM Elliptical Excision with Intermediate Closure Date of Service: 07/10/2023 Tumor Type: squamous cell carcinoma, keratoacanthoma subtype Location: left distal ulnar forearm Derm-Path Lesion Size: 1.3x1.1 cm Repair Type: intermediate Repair Size: 5.5 cm Suture Material: 4-0 monocryl Level of Defect: adipose Surgical Margins: 0.4 cm Primary Surgeon: David Lance MD Training Intern: N/A INDICATIONS: The risks of bleeding, infection, [...] report. I entered the information in our [employer] DocFlowsheet with the information provided by Dr. Lance on his handwritten, paper format, surgical worksheet, which was then used to initiate the create of this note. Dr. Lance then reviewed and edited the note as needed to complete the note. Priya Phillips I have reviewed the note, edited it as necessary and performed the entire procedure. David Lance MD Rand Maker 07/10/2023 David Lance MD PROCEDURE/MINOR SURG ICAL ORDERABLES Care Teams Cement Mason Apprentice Relationship Specialty Start Date End Date Lalo aDng MD [address] [place], [place] [id number] PCP - General Dermatology 07/10/23
--- OUTSIDE RECORDS SUMMARY | 2024-08-27 16:55 | XMS_ITS | Encounter Summary ---
Author Organization [facility] Address [address] [facility] [place] [address] Care Team Providers Care Stock Parts Inspector Name Role Phone Lalo Dang MD Primary Care Provider [phone] Encounter Details Date Type Department Care Team (Late st Contact Info) Description 07/17/2021 Lab Requisition [facility] [address] [facility], [place] [address] Lalo Dang MD [address] [place], [place] [address] Social History Tobacco Use Types Packs/Day Years [...] Comments DERMATOPATHOLOGY Routine 07/16/2021 12:0 0 AM WARP PREPARER documented in this encounter Results * DERMATOPATHOLOGY (07/16/2021 12:00 AM WARP PREPARER) Case Report Dermatopathology Report ? Case: [id number] ? Authorizing Provider: ??Lalo Dang MD ?Collected: ? 07/16/2021 12:00 AM ? Ordering Location: ? [facility] ?Received: ?07/17/2021 12:11 PM ? Pathologist: ? Chelsey Lisa MD ? Specimen: ?Skin, left distal anterior thigh ? 1:11 PM [facility] DERMATOPATHOLOGY LABORATORY Final Diagnosis Specimen A. 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 Check margins. 1:11 PM [facility] DERMATOPATHOLOGY LABORATORY Gross Description Specimen A: Received is one formalin filled container labeled with the patients name and designated left distal anterior thigh. The specimen consists of a shave removal measuring [id number]. The margin is inked green. Jar 0. 1:11 PM [facility] DERMATOPATHOLOGY LABORATORY Microscopic Description Specimen A. SKIN, left distal anterior thigh: The epidermis shows parakeratosis, full thickness disorderly maturation of keratinocytes, mitoses at different levels, and dyskeratotic cells. This lesion is not present at the sampled margin of the specimen. 1:11 PM [facility] DERMATOPATHOLOGY LABORATORY Disclaimer [...] purposes. Billing Codes Specimen Charges Stain Charges 43194 1 1 1:11 PM WARP PREPARER DERMATOPATHOLOGY LABORATORY Embedded Images 1 1:11 PM WARP PREPARER DERMATOPATHOLOGY LABORATORY Pathology/Cytolog y TISSUE SPECIMEN FROM SKIN / Unknown 07/16/2021 07/17/2021 12:11 PM WARP PREPARER Lalo Dang MD LAB - PATHOLOGY/CYTO LOGY ORDERABLES DERMATOPATHOLOGY LABORATORY [facility] - Department of Dermatology [facility] Medicine [address] [place] [address], [address] [phone] documented in this encounter Visit Diagnoses Not on filedocumented in this encounter Care Teams Stock Parts Inspector Relationship Specialty Start Date End Date Lalo Dang MD [address] [place] [address] PCP - General Dermatology 07/10/23 documented as of this encounter
--- OUTSIDE RECORDS SUMMARY | 2024-08-27 16:55 | XMS_ITS | Encounter Summary ---
Author Organization [facility] Address [address] [facility] [place] [address] Care Team Providers Care Clinical Education Coordinator Name Role Phone Lalo Dang MD Primary Care Provider [phone] Encounter Details Date Type Department Care Team [...] on filedocumented in this encounter Care Teams Clinical Education Coordinator Relationship Specialty Start Date End Date Lalo Dang MD [address] [place] [address] PCP - General Dermatology 07/10/23 documented as of this encounter
--- OUTSIDE RECORDS SUMMARY | 2024-08-27 16:55 | XMS_ITS | Encounter Summary ---
Author Organization [facility] Address [address] [place] [address] Care Team Providers Care Teacher Education Instructor Name Role Phone Lalo Dang MD Primary Care Provider Reason for Visit * Reason Comments Squamous Cell Carcinoma Right distal for earm Encounter Details Date Type Department Care Team (Latest Contact Info) Description 07/10/2023 1:00 PM RESIDENTIAL PROPERTY CONSULTANT Procedure visit [facility] - Dermatology [address] [place] [address] David Lance MD [address] [facility] 3 [place] [address] Squamous cell carcinoma, arm, right Social History Tobacco Use Types Packs/Day Years Used Date Smoking Tobacco: Never Assessed Sex and Gender Information Value Date Recorded Sex Assigned at Not on file Gender Identity Not on file Sexual Orientation Not on file documented as of this encounter Patient Instructions * Patient Instructions* Samia Mccann E - 07/10/2023 1:42 PM RESIDENTIAL PROPERTY CONSULTANT Stitches: will dissolve Follow up: * If [...] PLEASE CALL OUR OFFICE. Normal office hours: [phone] or [phone] After hours and holidays Thursday - Thursday after 3:30 pm Purchasing Assistant chemical production technician: [phone] Scars may take 12 months or longer to mature, although a great deal of improvement occurs in the first 3 months. If you have concerns about your scar after 3 months, please call our office to schedule a follow up appointment. There are options available to help improve the appearance. I DENTIAL PROPERTY CONSULTANT documented in this encounter Progress Notes * [...] no Current Anticoagulants: none David Lance MD DENTIAL PROPERTY CONSULTANT documented in this encounter Procedure Notes * Priya Phillips - 07/10/2023 1:55 PM CSTAssociated Order(s): PROC EXCISION SKIN REMAINDER BODY MALIGNANT Procedure(s): NC EXC SKIN MALIG 2.1-3CM REMAINDR BODY; NC INTMD WND REPAIR TRUNK,ARM,LEG 2.6-7.5 Pre-Procedure Diagnose(s): Squamous cell carcinoma, arm, right Elliptical Excision with Intermediate Closure Date of Service: 07/10/2023 Tumor Type: squamous cell carcinoma, keratoacanthoma subtype Location: left distal ulnar forearm Derm-Path Lesion Size: 1.3x1.1 cm Repair Type: intermediate Repair Size: 5.5 cm Suture Material: 4-0 monocryl Level of Defect: adipose Surgical Margins: 0.4 cm Primary Surgeon: David Lance MD Coding Validator: N/A INDICATIONS: The risks of bleeding, infection, [...] report. I entered the information in our [facility] DocFlowsheet with the information provided by Dr. Lance on his handwritten, paper format, surgical worksheet, which was then used to initiate the create of this note. Dr. Lance then reviewed and edited the note as needed to complete the note. Priya Phillips I have reviewed the note, edited it as necessary and performed the entire procedure. David Lance MD Banbury Operator 07/10/2023 DENTIAL PROPERTY CONSULTANT Associated attestation - David Lance MD - 07/10/2023 2:38 PM RESIDENTIAL PROPERTY CONSULTANT I have reviewed the note, edited it as necessary and performed the entire procedure. David Lance MD Banbury Operator 07/10/2023 documented in this encounter Plan of Treatment Not on file documented as of this encounter Procedures Procedure Name Priority Date/Time Associated Diagnosis Comments NC EXC SKIN MALIG 2.1-3CM REMAINDR BODY Routine 07/10/2023 1:55 PM RESIDENTIAL PROPERTY CONSULTANT Squamous cell carcinoma, arm, right NC INTMD WND REPAIR TRUNK,ARM,LEG 2.6-7.5 Routine 07/10/2023 1:55 PM RESIDENTIAL PROPERTY CONSULTANT Squamous cell carcinoma, arm, right DERMATOPATHOLOGY Routine 07/10/2023 1:52 PM RESIDENTIAL PROPERTY CONSULTANT Squamous cell carcinoma, arm, right documented in this encounter Results * NC INTMD WND REPAIR TRUNK,ARM,LEG 2.6-7.5, NC EXC SKIN MALIG 2.1-3CM REMAINDR BODY (07/10/2023 1:55PM RESIDENTIAL PROPERTY CONSULTANT) Narrative David Lance MD - 07/10/2023 1:55 PM RESIDENTIAL PROPERTY CONSULTANT Dvaid Lance MD ? 07/10/2023 ??2:38 PM Elliptical Excision with Intermediate Closure Date of Service: 07/10/2023 Tumor Type: squamous cell carcinoma, keratoacanthoma subtype Location: left distal ulnar forearm Derm-Path Lesion Size: 1.3x1.1 cm Repair Type: intermediate Repair Size: 5.5 cm Suture Material: 4-0 monocryl Level of Defect: adipose Surgical Margins: 0.4 cm Primary Surgeon: David Lance MD Coding Validator: N/A INDICATIONS: The risks of bleeding, infection, [...] report. I entered the information in our [place] DocFlowsheet with the information provided by Dr. Lance on his handwritten, paper format, surgical worksheet, which was then used to initiate the create of this note. Dr. Lance then reviewed and edited the note as needed to complete the note. Priya Phillips I have reviewed the note, edited it as necessary and performed the entire procedure. David Lance MD Banbury Operator 07/10/2023 David Lance MD PROCEDURE/MINOR SURG ICAL ORDERABLES * DERMATOPATHOLOGY (07/10/2023 1:52 PM RESIDENTIAL PROPERTY CONSULTANT) Case Report Dermatopathology Report ? Case: [id number] ? Authorizing Provider: ??David Lance MD ?Collected: ? 07/10/2023 01:52 PM ? Ordering Location: ? [facility] ?? Received: ?07/13/2023 10:05 AM ? Cutaneous Oncology ? Pathologist: ? Chelsey Lisa MD ? Specimen: ?Skin, left forearm ? 3 1:22 PM [facility] DERMATOPATHOLOGY LABORATORY Final Diagnosis Specimen A. SKIN, left forearm: SQUAMOUS CELL CARCINOMA, WELL DIFFERENTIATED; RESIDUAL (C44.629) NOT PRESENT AT MARGIN DERMAL SCAR (L90.5) (see microscopic description) 3 1:22 PM [facility] DERMATOPATHOLOGY LABORATORY Clinical History [facility] 3 1:22 PM [facility] DERMATOPATHOLOGY LABORATORY Gross Description Specimen A: Received is one formalin filled container labeled with the patient's name and designated left forearm.The specimen consists of an ellipse measuring 24y70u1 mm and is oriented with the suture/notch [...] - 5. Jar 0. 3 1:22 PM [facility] [...] to the skin surface. 3 1:22 PM [facility] DERMATOPATHOLOGY LABORATORY Disclaimer An external and internal positive and negative controls are appropriate for the histochemical, immunohistochemical and immunofluorescence stain(s) in this case (if any), except where stated explicitly. The performance characteristics of the stain(s) cited in this report were developed and its performance characteristic determined by the Dermatopathology Laboratory at [facility], directed by Dr. Risa Patel. These tests need not be, and therefore are not, approved by the [place] Food and Drug Administration. The tests are used for clinical purposes. Billing Codes Specimen Charges Stain Charges 77719 1 3 1:22 PM RESIDENTIAL PROPERTY CONSULTANT DERMATOPATHOLOGY LABORATORY Embedded Images 3 1:22 PM [facility] DERMATOPATHOLOGY LABORATORY Pathology/Cytolo gy TISSUE SPECIMEN FROM SKIN / Unknown 07/10/2023 1:52 PM RESIDENTIAL PROPERTY CONSULTANT 07/13/2023 10:05 AM RESIDENTIAL PROPERTY CONSULTANT David Lance MD LAB - PATHOLOGY/CYTO LOGY ORDERABLES DERMATOPATHOLOGY LABORATORY [facility] Department of Dermatology [facility] Medicine [address] [place] [address], [address]rd [address] [phone] documented in this encounter Visit Diagnoses Diagnosis Squamous cell carcinoma, arm, right- Primary documented in this encounter Care Teams Teacher Education Instructor Relationship Specialty Start Date End Date Lalo Dang MD [address] [place] [address] PCP - General Dermatology 07/10/23 documented as of this encounter
--- OUTSIDE RECORDS SUMMARY | 2024-08-27 16:55 | XMS_ITS | Referral Summary ---
Author Organization [facility] Address [address] [place] [address] Care Team Providers Care Induction Brazer Name Role Phone Lalo Dang MD Primary Care Provider Source Comments [facility],non-owned Affiliates and Associated Physician Practices is amultiple site organization consisting of ambulatory clinics and hospital sitesin [place], [place], [place] and [place]. This disclosure is being madepursuant to the Care Everywhere program and may not contain all information available regarding this patient. Last updated 18.[facility] Medications * Be aware that medications may [...] of Treatment Not on file Care Teams Induction Brazer Relationship Specialty Start Date End Date Lalo Dang MD [address] [place] [address] PCP - General Dermatology 07/10/23
--- OUTSIDE RECORDS SUMMARY | 2024-08-27 16:55 | XMS_ITS | Encounter Summary ---
Author Organization [facility] Address [address] [place] [address] Phone Care Team Providers Care Director Marketing Analytics Name Role Phone Beto Castillo MD Primary Care Provider + [phone] Reason for Visit * Reason Comments Dysphagia Encounter Details Date Type Department Care Team (Late st Contact Info) Description 01/14/2024 9:00 AM CDT Office Visit [facility] Building [address] [place] [address] Sylwia Miller MD [address] [place] [address] Throat discomfort (Primary Dx); Mucocele [...] on file 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 DISPOSITION: 2 months Merline Miller MD Agent [facility] Division of [...] documented as of this encounter Care Teams Director Marketing Analytics Relationship Specialty Start Date End Date Beto Castillo MD PCP - General 10/22/15 documented as of this encounter
--- OUTSIDE RECORDS SUMMARY | 2024-08-27 16:55 | XMS_ITS | Encounter Summary ---
Author Organization [facility] Address [address] [facility] [place] [address] Care Team Providers Care Auto Service Station Attendant Name Role Phone Lalo Dang MD Primary Care Provider [phone] Encounter Details Date Type Department Care Team (Late st Contact Info) Description 02/18/2024 Lab Requisition [facility] - Derm[facility] Lab [address] [facility] [place] [address] Lalo Dang MD [address] [place] [address] Social History Tobacco Use Types Packs/Day Years [...] CDT) Case Report Dermatopathology Report ? Case: [id number] ? Authorizing Provider: ??Lalo Dang MD ?Collected: [...] characteristic determined by the Dermatopathology Laboratory at [facility], directed by Dr. Risa Patel. These tests need not be, and therefore are not, approved by the [place] Food and Drug Administration. The tests are used for clinical purposes. Billing Codes Specimen Charges Stain Charges 30554 1 4 1:47 PM CDT DERMATOPATHOLOGY LABORATORY Embedded Images 4 1:47 PM CDT DERMATOPATHOLOGY LABORATORY Pathology/Cytolog y TISSUE SPECIMEN FROM SKIN / Unknown 02/16/2024 02/18/2024 10:45 AM CDT Lalo Dang MD LAB - PATHOLOGY/CYTO LOGY ORDERABLES DERMATOPATHOLOGY LABORATORY [facility] - Department of Dermatology [facility] Medicine [address] [place] [address], [address]rd Floor [address] [phone] documented in this encounter Visit Diagnoses Not on filedocumented in this encounter Care Teams Auto Service Station Attendant Relationship Specialty Start Date End Date Lalo Dang MD [address] [place] [address] PCP - General Dermatology 07/10/23 documented as of this encounter
--- OUTSIDE RECORDS SUMMARY | 2024-08-27 16:56 | XMS_ITS | Encounter Summary ---
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 Patient referred by Dr. Jennings. Schedule [facility] IOV next available Received: Today Call patient Anupam Cannon, HILL P [facility] Pulm [address] Sched Hub Pool Please schedule this patient as an IOV in Dr. [facility] clinic next available. He needs spi, spi w bd, DLCO, lung volumes, ABG, O2A, and CXR. All orders are written. Please call [phone] to confirm appointment. Thank you ND CUTTING MACHINE TENDER documented in this encounter Plan of Treatment Not on file documented as of this encounter Visit Diagnoses Not on filedocumented in this encounter Care Teams Slip Cover Operator Relationship Specialty Start Date End Date Beto Castillo MD PCP - General 10/22/15 documented as of this encounter
--- OUTSIDE RECORDS SUMMARY | 2024-08-27 16:56 | XMS_ITS | Encounter Summary ---
Author Organization [facility] Facility Care Team Providers Care Voip Engineer Name Role Phone Unavailable Primary Care Provider Unavailabl e Encounter Details Date Type Department Care Team (Late st Contact Info) Description 05/11/2007 - 05/11/2007 11:59 PM CDT Hospital [facility], Enrrique Hahn MD [address] [facility] 6A/6B[address]12A [place] [address] Social History Tobacco Use Types Packs/Day Years Used Date Smoking Tobacco: Never Assessed Sex and Gender Information Value Date Recorded Sex Assigned at Not on file 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
--- OUTSIDE RECORDS SUMMARY | 2024-08-27 16:56 | XMS_ITS | Encounter Summary ---
Author Organization [facility] Facility Care Team Providers Care Electrical Lineworker Name Role Phone Unavailable Primary Care Provider Unavailabl e Encounter Details Date Type Department Care Team (Late st Contact Info) Description 01/16/2009 - 01/16/2009 11:59 PM CDT Hospital Encounter [facility] CL[facility] Primitivo, Enrrique Hahn MD [address] [facility] 6A/6B/[address] [place] [address] Localized osteoarthrosis, shoulder region Social History Tobacco Use Types Packs/Day Years Used Date Smoking Tobacco: Never Assessed Sex and Gender Information Value Date Recorded Sex Assigned at Not on file 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
--- OUTSIDE RECORDS SUMMARY | 2024-08-27 16:56 | XMS_ITS | Encounter Summary ---
Author Organization [facility] Facility Care Team Providers Care Commuter Pilot Name Role Phone Beto Castillo MD Primary Care Provider [phone] Encounter Details Date Type Department Care Team (Latest Contact Info) Description 10/03/2015 8:09 AM WATCH INSPECTOR FINAL MOVEMENT - 10/04/2015 9:55 AM WATCH INSPECTOR FINAL MOVEMENT Hospital Encounter [facility] Funmilayo Avalos MD [address] [place] [address] Incisional hernia, with obstruction, without gangrene; Essential (primary) hypertension; Cigarette nicotine dependence, uncomplicated; Obstructive sleep apnea; Blindness of both eyes Social History Tobacco Use Types Packs/Day Years Used Date Smoking Tobacco: Never Assessed Sex and Gender Information Value Date Recorded Sex Assigned at Not on file Legal Sex Male 8:26 PM WATCH INSPECTOR FINAL MOVEMENT Gender Identity Not on file Sexual Orientation Not on file documented as of this encounter Last Filed Vital Signs Vital Sign Reading Time Taken Comments Blood Pressure 161/97 10/04/2015 9:02 AM WATCH INSPECTOR FINAL MOVEMENT Pulse 96 10/04/2015 9:02 AM WATCH INSPECTOR FINAL MOVEMENT Temperature - - Respiratory Rate - - Oxygen Saturation - - Inhaled Oxygen Concentration - - Weight 108.1 kg (238 lb 5.1 oz) 016 10:13 AM WATCH INSPECTOR FINAL MOVEMENT Height 182.9 cm (6' 0.01 ) 09/28/2015 1 0:13 AM WATCH INSPECTOR FINAL MOVEMENT Body Mass Index 32.31 09/28/2015 10:13 AM WATCH INSPECTOR FINAL MOVEMENT documented in this encounter Medications at Time of Discharge Medication Sig Dispense Quantity Refills Last Filled Start D ate End Date ibuprofen 200 mg capsule 200 mg. 0 0 08/13/2015 losartan-hydroCHLORO thiazide (HYZAAR) 100-12.5 mg per tablet 0 0 08/13/2015 documented as of this encounter Miscellaneous Notes * Op Note - Provider, MD Fly - 10/03/2015 12:00 AM CST Patient: AMMON RIZVI Account: [id number] Room No: 2462-A : 1960 Proc. Date: 10/03/2015 Surgeon: FUNMILAYO AVALOS M.D. Admit Date: 10/03/2015 Disch. Date: 10/04/2015 Patient Type: SDS Procedures: 1. Recurrent incisional hernia repair and umbilical hernia repair with 11 x [address] patch. 2. Removal of old mesh. Preoperative Diagnosis: Recurrent incisional hernia. Postoperative Diagnosis: Recurrent incisional hernia. Surgeon: Dr Avalos Internal Communications Manager: Joseph Anesthesia: General. Brief Clinical History: A [...] Funmilayo Avalos MD On 10/09/2015 06:47 AM WATCH INSPECTOR FINAL MOVEMENT FUNMILAYO AVALOS M.D. Dictated by: FUNMILAYO AVALOS [...] specified documented in this encounter Care Teams Commuter Pilot Relationship Specialty Start Date End Date Beto Castillo MD PCP - General 08/13/15 10/21/15 documented as of this encounter
--- OUTSIDE RECORDS SUMMARY | 2024-08-27 16:56 | XMS_ITS | Encounter Summary ---
Author Organization [facility] Facility Care Team Providers Care Home Manager Name Role Phone Unavailable Primary Care Provider Unavailabl e Encounter Details Date Type Department Care Team (Late st Contact Info) Description 04/09/2010 - 04/09/2010 11:59 PM CDT Hospital Encounter [facility] CL[facility]CONV Primitivo, Enrrique Hahn MD [address] [facility] 6A/6B/12A [place] [address] Osteoarthrosis, shoulder region Social History Tobacco Use Types Packs/Day Years Used Date Smoking Tobacco: Never Assessed Sex and Gender Information Value Date Recorded Sex Assigned at Not on file 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
--- OUTSIDE RECORDS SUMMARY | 2024-08-27 16:56 | XMS_ITS | Encounter Summary ---
Author Organization [facility] Address [address] [place] [address] Phone Care Team Providers Care Sales Program Coordinator Name Role Phone Beto Castillo MD Primary Care Provider + [phone] Encounter Details Date Type Department Care Team (Late st Contact Info) Description 09/17/2023 Telephone [facility] Pulmonary [address] [facility] Medicine 8th [place] [address] [place] [address] Anupam Cannon, RN Social History [...] on file Legal Sex Male 8:26 PM TRAFFIC REPRESENTATIVE Gender Identity Not on file Sexual Orientation Not on file documented as of this encounter Miscellaneous Notes * Telephone Encounter - Anupam Cannon, HILL - 09/17/2023 2:01 PM TRAFFIC REPRESENTATIVE ----- Message from Ross Garcia sent at 09/17/2023 1:47 PM TRAFFIC REPRESENTATIVE ----- Regarding: RE: Schedule [facility] IOV next available LMOR for pt to call back to schedule ----- Message ----- From: Blossom Fonseca Sent: 09/15/2023 2:38 PM TRAFFIC REPRESENTATIVE To: Ross Garcia Subject: FW: Schedule [facility] IOV next available ----- Message ----- From: Anupam Cannon RN Sent: 09/15/2023 11:19 AM TRAFFIC REPRESENTATIVE To: Renzo Jimenez Pulm [place] [address] [place] [address] Subject: Schedule [facility] IOV next available Please schedule this patient as an IOV in Dr. [facility] clinic next available. He needs spi, spi w bd, DLCO, lung volumes, ABG, O2A, and CXR. All orders are written. Please call [phone] to confirm appointment. Thank you FIC REPRESENTATIVE documented in this encounter Plan of Treatment Not on file documented as of this encounter Visit Diagnoses Not on filedocumented in this encounter Care Teams Sales Program Coordinator Relationship Specialty Start Date End Date Beto Castillo MD PCP - General 10/22/15 documented as of this encounter
--- OUTSIDE RECORDS SUMMARY | 2024-08-27 16:56 | XMS_ITS | Encounter Summary ---
Author Organization [facility] Address [address] [place] [address] Phone Care Team Providers Care Guest Services Assistant Name Role Phone Beto Castillo MD Primary Care Provider [phone] Reason for Referral * Consultation (Routine) - Pending Review Specialty Diagnoses / Procedures Referred By Contac t Referred To Contact Pulmonary Disease / Pulmonology Diagnoses Chronic obstructive pulmonary disease, unspecified COPD type (H[place]) [place] [address] [place] [address] Phone: tel: fax: [place] [address] [place] [address] Phone: tel: fax: Referral ID Status Reason Start Date Expiration Date Visits Requested Visits Authorized [id number] Pending Review Specialty Services Required 09/17/2023 10/16/2024 1 1 Question Answer Please select the performing region: [facility] (All Locations) [[id number]] To provider: MEDHAT LEAVITT [[id number]] # of visits: 1 Comments Per Anupam DOLAN CAID SPECIALIST Encounter Details Date Type Department Care Team (Late st Contact Info) Description 09/17/2023 Orders Only [facility] Pulmonary [address] [place] [address] 8th [place] [address] Medaht Leavitt MD [address] [facility] [address] [place] [address] Chronic obstructive pulmonary disease, unspecified COPD type [...] on file Legal Sex Male 8:26 PM MEDICAID SPECIALIST Gender Identity Not on file Sexual Orientation [...] Primary documented in this encounter Care Teams Guest Services Assistant Relationship Specialty Start Date End Date Beto Castillo MD PCP - General 10/22/15 documented as of this encounter
--- OUTSIDE RECORDS SUMMARY | 2024-08-27 16:56 | XMS_ITS | Encounter Summary ---
Author Organization [facility] Facility Care Team Providers Care Bobbin Loose End Finder Name Role Phone Unavailable Primary Care Provider Unavailabl e Encounter Details Date Type Department Care Team (Late st Contact Info) Description 02/14/2008 10:44 AM CDT - 02/15/2008 9:19 AM CDT Hospital Encounter [facility] Judith Vega MD [address] [facility] [address] [place] [address] Social History Tobacco Use Types Packs/Day Years Used Date Smoking Tobacco: Never Assessed Sex and Gender Information Value Date Recorded Sex Assigned at Not on file Legal Sex Male 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
--- OUTSIDE RECORDS SUMMARY | 2024-08-27 16:56 | XMS_ITS | Encounter Summary ---
Author Organization [facility] Facility Care Team Providers Care Black Powder Glazing Operator Name Role Phone Unavailable Primary Care Provider Unavailabl e Encounter Details Date Type Department Care Team (Late st Contact Info) Description 01/07/2011 - 01/07/2011 11:59 PM CDT Hospital Encounter [facility] Primitivo, Enrrique Hahn MD [address] [facility] [address]6B[address] [place] [address] Localized osteoarthrosis, shoulder region Social History Tobacco Use Types Packs/Day Years Used Date Smoking Tobacco: Never Assessed Sex and Gender Information Value Date Recorded Sex Assigned at Not on file 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
--- OUTSIDE RECORDS SUMMARY | 2024-08-27 16:56 | XMS_ITS | Encounter Summary ---
Author Organization [facility] Facility Care Team Providers Care Sales Coordinator Name Role Phone Beto Castillo MD Primary Care Provider [phone] Encounter Details Date Type Department Care Team (Late st Contact Info) Description 07/06/2012 - 07/06/2012 11:59 PM ASSISTANT Hospital Encounter [facility] CLINCON[facility] Clinton MD [address] [facility] [address]6B[address]A [place] [address] Pain in joint, shoulder region; Osteoarthrosis, shoulder region Social History Tobacco Use Types Packs/Day Years Used Date Smoking Tobacco: Never Assessed Sex and Gender Information Value Date Recorded Sex Assigned at Not on file Legal Sex Male 8:26 PM ASSISTANT Gender Identity Not on file Sexual Orientation Not on file documented as of this encounter Plan of Treatment Not on file documented as of this encounter Visit Diagnoses Diagnosis Pain in joint, shoulder region Osteoarthrosis, shoulder region Osteoarthrosis, unspecified whether generalized or localized, shoulder region documented in this encounter Care Teams Sales Coordinator Relationship Specialty Start Date End Date Beto Castillo MD PCP - General 10/10/11 08/12/15 documented as of this encounter
--- OUTSIDE RECORDS SUMMARY | 2024-08-27 16:56 | XMS_ITS | Encounter Summary ---
Author Organization [facility] Address [address] [place] [address] Phone Care Team Providers Care Oil Boiler Name Role Phone Beto Castillo MD Primary Care Provider + [phone] Reason for Referral * Procedure (Routine) - Authorized Specialty Diagnoses / Procedures Referred By Contac t Referred To Contact Diagnoses Chronic obstructive pulmonary disease, unspecified COPD type (HCC) Procedures Pulmonary Function Test -[facility] Adult PFT [facility]- [facility]-8D; Spirometry, Oxygen Assessment Titration, ABG, Lung Volumes, Spirometry with Bronchodilator, DLCO; Pleth with Airway Resistance; Room Air ABG; Spirometry Medhat Leavitt MD [address] [place] [address] Phone: tel: fax: Referral ID Status Reason Start Date Expiration Date V isits Requested Visits Authorized [id number] Authorized 09/15/2023 10/14/2024 1 1 RACTIVE MEDIA DESIGNER Encounter Details Date Type Department Care Team (Late st Contact Info) Description 09/15/2023 Orders Only [facility]monary [address] [facility] [address] 8th [place] [address] [place] [address] Anupam Cannon RN Chronic obstructive [...] on file Legal Sex Male 8:26 PM INTERACTIVE MEDIA DESIGNER Gender Identity Not on file Sexual Orientation Not on file documented as of this encounter Progress Notes * Anupam Cannon, HILL - 09/15/2023 11:17 AM CST Ordered IOV testing for Dr. Headley. RACTIVE MEDIA DESIGNER documented in this encounter Plan of Treatment [...] Primary documented in this encounter Care Teams Oil Boiler Relationship Specialty Start Date End Date Beto Castillo MD PCP - General 10/22/15 documented as of this encounter
--- OUTSIDE RECORDS SUMMARY | 2024-08-27 16:56 | XMS_ITS | Encounter Summary ---
Author Organization [facility] Facility Care Team Providers Care It Architecture Analyst Name Role Phone Unavailable Primary Care Provider Unavailabl e Encounter Details Date Type Department Care Team (Late st Contact Info) Description 06/12/2009 - 06/12/2009 11:59 PM CDT Hospital Encounter [facility] Primitivo, Enrrique Hahn MD [address] [facility] 6A[address]6B[address] [place] [address] Localized osteoarthrosis, shoulder region Social History Tobacco Use Types Packs/Day Years Used Date Smoking Tobacco: Never Assessed Sex and Gender Information Value Date Recorded Sex Assigned at Not on file 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
--- OUTSIDE RECORDS SUMMARY | 2024-08-27 16:56 | XMS_ITS | Encounter Summary ---
Author Organization [facility] Facility Care Team Providers Care Medical Center Manager Name Role Phone Unavailable Primary Care Provider Unavailabl e Encounter Details Date Type Department Care Team (Late st Contact Info) Description 01/01/2010 - 01/01/2010 11:59 PM CDT Hospital Encounter [facility] Primitivo, Enrrique Hahn MD [address] [facility] 6A/6B[address]12A [place] [address] Localized osteoarthrosis, upper arm Social History Tobacco Use Types Packs/Day Years Used Date Smoking Tobacco: Never Assessed Sex and Gender Information Value Date Recorded Sex Assigned at Not on file Legal Sex Male 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
--- OUTSIDE RECORDS SUMMARY | 2024-08-27 16:56 | XMS_ITS | Encounter Summary ---
Author Organization [facility] Facility Care Team Providers Care Section Forest Fire Warden Name Role Phone Unavailable Primary Care Provider Unavailabl e Encounter Details Date Type Department Care Team (Late st Contact Info) Description 06/19/2010 - 06/19/2010 11:59 PM CDT Hospital Encounter [facility] Primitivo, Enrrique Hahn MD [address] [facility] 6A[address]6B[address]A [place] [address] Localized osteoarthrosis, shoulder region; Degeneration of lumbar or lumbosacral intervertebral disc; Cervical spondylosis without myelopathy Social History Tobacco Use Types Packs/Day Years Used Date Smoking Tobacco: Never Assessed Sex and Gender Information Value Date Recorded Sex Assigned at Not on file Legal Sex Male 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
--- OUTSIDE RECORDS SUMMARY | 2024-08-27 16:56 | XMS_ITS | Encounter Summary ---
Author Organization [facility] Address [address] [place] [address] Phone Care Team Providers Care Diamond Broker Name Role Phone Beto Castillo MD Primary Care Provider + [phone] Reason for Visit * Reason Comments Dysphagia Encounter Details Date Type Department Care Team (Late st Contact Info) Description 11/18/2023 3:20 PM CDT Office Visit [facility] [address] [place] [address] Sylwia Miller MD [address] [place] [address] Throat discomfort (Primary Dx); Phlegm [...] on file Legal Sex Male 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 DISPOSITION: 2 months Merline Miller MD Enrollment Management Manager [facility] Division of Laryngology Department of Otolaryngology--Head & Neck Surgery documented in this encounter Plan of Treatment Not on file documented as of this encounter Visit Diagnoses Diagnosis Throat discomfort- Primary Throat pain Phlegm in throat Mucocele of tonsil documented in this encounter Care Teams Diamond Broker Relationship Specialty Start Date End Date Beto Castillo MD PCP - General 10/22/15 documented as of this encounter
--- OUTSIDE RECORDS SUMMARY | 2024-08-27 16:56 | XMS_ITS | Encounter Summary ---
Author Organization [facility] Facility Care Team Providers Care Map Clerk Name Role Phone Unavailable Primary Care Provider Unavailabl e Encounter Details Date Type Department Care Team (Late st Contact Info) Description 12/14/2006 - 12/14/2006 11:59 PM CDT Hospital Encounter [facility] CLINCONAngel Langford, Enrrique Hahn MD [address] [facility] [address] [place] [address] Social History Tobacco Use Types Packs/Day Years Used Date Smoking Tobacco: Never Assessed Sex and Gender Information Value Date Recorded Sex Assigned at Not on file Legal Sex Male 8:26 PM PRODUCTION CONTROL COORDINATOR Gender Identity Not on file Sexual Orientation Not on file documented as of this encounter Plan of Treatment Not on file documented as of this encounter Visit Diagnoses Not on filedocumented in this encounter
--- OUTSIDE RECORDS SUMMARY | 2024-08-27 16:56 | XMS_ITS | Encounter Summary ---
Author Organization [facility] Facility Care Team Providers Care Product Introduction Manager Name Role Phone Beto Castillo MD Primary Care Provider Encounter Details Date Type Department Care Team (Late st Contact Info) Description 02/03/2012 - 02/03/2012 11:59 PM CDT Hospital Encounter [facility] Enrrique Langford MD [address] [facility] [address] [place] [address] Localized osteoarthrosis, shoulder region Social History Tobacco Use Types Packs/Day Years Used Date Smoking Tobacco: Never Assessed Sex and Gender Information Value Date Recorded Sex Assigned at Not on file Legal Sex Male 8:26 PM PRODUCT DEVELOPMENT Gender Identity Not on file Sexual Orientation Not on file documented as of this encounter Plan of Treatment Not on file documented as of this encounter Visit Diagnoses Diagnosis Localized osteoarthrosis, shoulder region Localized osteoarthrosis not specified whether primary or secondary, shoulder region documented in this encounter Care Teams Product Introduction Manager Relationship Specialty Start Date End Date Beto Castillo MD PCP - General 10/10/11 08/12/15 documented as of this encounter
--- OUTSIDE RECORDS SUMMARY | 2024-08-27 16:56 | XMS_ITS | Encounter Summary ---
Author Organization [facility] Facility Care Team Providers Care Latex Foam Worker Name Role Phone Beto Castillo MD Primary Care Provider [phone] Encounter Details Date Type Department Care Team (Latest Contact Info) Description 09/28/2015 9:54 AM RELIGIOUS RITUAL SLAUGHTERER - 09/28/2015 11:59 PM RELIGIOUS RITUAL SLAUGHTERER Hospital Encounter [facility] Tavo Reinoso MD [address] [place] [address] Encounter for preprocedural laboratory examination; Incisional hernia, without obstruction or gangrene Social History Tobacco Use Types Packs/Day Years Used Date Smoking Tobacco: Never Assessed Sex and Gender Information Value Date Recorded Sex Assigned at Not on file Legal Sex Male 8:26 PM RELIGIOUS RITUAL SLAUGHTERER Gender Identity Not on file Sexual Orientation [...] BASIC METABOLIC PANEL Routine 09/28/2015 11:08 AM RELIGIOUS RITUAL SLAUGHTERER DISCHARGE LABORATORY CUMULATIVE REPORT 09/28/2015 documented in this encounter Results * Plasma basic metabolic panel (09/28/2015 11:08 AM RELIGIOUS RITUAL SLAUGHTERER) Sodium 138 136 - 146 mmol/L HISTORICAL [...] HISTORICAL RESULTS Plasma 09/28/2015 11:0 8 AM RELIGIOUS RITUAL SLAUGHTERER Tavo Reinoso MD LAB BLOOD ORDERABLES Final Re sult HISTORICAL RESULTS * DISCHARGE LABORATORY CUMULATIVE REPORT (09/28/2015) Narrative 09/28/2015 Ordered by an unspecified provider. Historical Provider LAB BLOOD ORDERABLES Kaycee l Result documented in this encounter Visit Diagnoses Diagnosis Encounter for preprocedural laboratory examination Incisional hernia, without obstruction or gangrene documented in this encounter Care Teams Latex Foam Worker Relationship Specialty Start Date End Date Beto Castillo MD PCP - General 08/13/15 10/21/15 documented as of this encounter
--- OUTSIDE RECORDS SUMMARY | 2024-08-27 16:56 | XMS_ITS | Encounter Summary ---
Author Organization [facility] Facility Care Team Providers Care Chemicals Distiller Name Role Phone Unavailable Primary Care Provider Unavailabl e Encounter Details Date Type Department Care Team (Late st Contact Info) Description 09/25/2009 - 09/25/2009 11:59 PM LOGISTICS PROJECT MANAGER Hospital Encounter [facility] Primitivo, Enrrique Hahn MD [address] [facility] 6A[address]6B[address] [place] [address] Localized osteoarthrosis, shoulder region Social History Tobacco Use Types Packs/Day Years Used Date Smoking Tobacco: Never Assessed Sex and Gender Information Value Date Recorded Sex Assigned at Not on file Legal Sex Male 8:26 PM LOGISTICS PROJECT MANAGER Gender Identity Not on file Sexual Orientation Not on file documented as of this encounter Plan of Treatment Not on file documented as of this encounter Visit Diagnoses Diagnosis Localized osteoarthrosis, shoulder region Localized osteoarthrosis not specified whether primary or secondary, shoulder region documented in this encounter
--- OUTSIDE RECORDS SUMMARY | 2024-08-27 16:56 | XMS_ITS | Encounter Summary ---
Author Organization [facility] Facility Care Team Providers Care Green End Department Supervisor Name Role Phone Unavailable Primary Care Provider Unavailabl e Encounter Details Date Type Department Care Team (Late st Contact Info) Description 07/02/2010 - 07/02/2010 11:59 PM SENIOR UI WEB DEVELOPER Hospital Encounter [facility] CLINCONAngel Langford, Enrrique Hahn MD [address] [facility] 6A/6B[address] [place] [address] Localized osteoarthrosis, shoulder region Social History Tobacco Use Types Packs/Day Years Used Date Smoking Tobacco: Never Assessed Sex and Gender Information Value Date Recorded Sex Assigned at Not on file Legal Sex Male 8:26 PM SENIOR UI WEB DEVELOPER Gender Identity Not on file Sexual Orientation Not on file documented as of this encounter Plan of Treatment Not on file documented as of this encounter Visit Diagnoses Diagnosis Localized osteoarthrosis, shoulder region Localized osteoarthrosis not specified whether primary or secondary, shoulder region documented in this encounter
--- OUTSIDE RECORDS SUMMARY | 2024-08-27 16:56 | XMS_ITS | Encounter Summary ---
Author Organization [facility] Facility Care Team Providers Care Name Role Phone Unavailable Primary Care Provider Unavailabl e Encounter Details Date Type Department Care Team (Late st Contact Info) Description 12/22/2008 - 12/22/2008 11:59 PM CDT Hospital Encounter [facility] Primitivo, Enrrique Hahn MD [address] [facility] 6A/6B[address] [place] [address] Localized osteoarthrosis, shoulder region Social History Tobacco Use Types Packs/Day Years Used Date Smoking Tobacco: Never Assessed Sex and Gender Information Value Date Recorded Sex Assigned at Not on file Legal Sex Male 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
--- OUTSIDE RECORDS SUMMARY | 2024-08-27 16:56 | XMS_ITS | Encounter Summary ---
Author Organization [facility] Facility Care Team Providers Care Paper Mill Superintendent Name Role Phone Unavailable Primary Care Provider Unavailabl e Encounter Details Date Type Department Care Team (Late st Contact Info) Description 10/08/2010 - 10/08/2010 11:59 PM APPRENTICE PHOTOGRAPHER Hospital En[facility] CLINCONAngel Langford, Enrrique Hahn MD [address] [facility] 6A/6B[address] [place] [address] Localized osteoarthrosis, shoulder region Social History Tobacco Use Types Packs/Day Years Used Date Smoking Tobacco: Never Assessed Sex and Gender Information Value Date Recorded Sex Assigned at Not on file Legal Sex Male 8:26 PM APPRENTICE PHOTOGRAPHER Gender Identity Not on file Sexual Orientation Not on file documented as of this encounter Plan of Treatment Not on file documented as of this encounter Visit Diagnoses Diagnosis Localized osteoarthrosis, shoulder region Localized osteoarthrosis not specified whether primary or secondary, shoulder region documented in this encounter
--- OUTSIDE RECORDS SUMMARY | 2024-08-27 16:56 | XMS_ITS | Encounter Summary ---
Author Organization [facility] Facility Care Team Providers Care Rn Rehabilitation Name Role Phone Unavailable Primary Care Provider Unavailabl e Encounter Details Date Type Department Care Team (Late st Contact Info) Description 09/07/2007 - 09/07/2007 11:59 PM PRINTING AGENT Hospital En[facility] DORIANCONAngel Langford, Enrrique Hahn MD [address] [facility] 6A/6B[address] [place] [address] Social History Tobacco Use Types Packs/Day Years Used Date Smoking Tobacco: Never Assessed Sex and Gender Information Value Date Recorded Sex Assigned at Not on file Legal Sex Male 8:26 PM PRINTING AGENT Gender Identity Not on file Sexual Orientation Not on file documented as of this encounter Plan of Treatment Not on file documented as of this encounter Visit Diagnoses Not on filedocumented in this encounter
--- OUTSIDE RECORDS SUMMARY | 2024-08-27 16:56 | XMS_ITS | Encounter Summary ---
Author Organization [facility] Facility Care Team Providers Care Finisher Plate Name Role Phone Unavailable Primary Care Provider Unavailabl e Encounter Details Date Type Department Care Team (Late st Contact Info) Description 02/10/2011 - 02/10/2011 11:59 PM CDT Hospital [facility] CL[facility]CON[facility] Vega, Daniel Michel MD [address] [facility] 6A/6B[address] [place] [address] Localized osteoarthrosis, shoulder region; Pain in joint, shoulder region Social History Tobacco Use Types Packs/Day Years Used Date Smoking Tobacco: Never Assessed Sex and Gender Information Value Date Recorded Sex Assigned at Not on file Legal Sex Male 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
== END 2024-08-20 15:40 | disposition home or self-care (01) ==
PROVIDERS: Emergency Provider Emergency Medicine; PCP Family Medicine
DX: R11.2 Nausea with vomiting, unspecified (principal); Z20.822 Contact with and (suspected) exposure to COVID-19; Z87.891 Personal history of nicotine dependence
CPT/HCPCS: 36415; 80053; 81003; 85025; 87637; 96361; 96374; 99284; J2405; J7030

== ENCOUNTER 2024-08-23 10:01 | Outpatient (CLI) | payer MEDICARE, SELFPAY ==
--- NOTE | ~2024-08-23 | US_ITS ---
Limited Abdominal Sonogram: Real-time sonographic imaging of the right upper quadrant was performed. Clinical History: Right upper quadrant pain Findings: The liver appears normal with no evidence of mass lesion or bile duct dilatation. Main por deloris vein demonstrates normal direction of flow. The gallbladder is well distended, and appears normal with no evidence of gallstone or wall thickening. The common bile duct measures 4 mm. The visualize d pancreas, aorta, and IVC are unremarkable. Right renal cyst noted. Impression: No significant abnormality seen. Reviewed, dictated and finalized at location [facility] Impression: No significant abnormality seen.
== END 2024-08-23 10:02 | disposition home or self-care (01) ==
PROVIDERS: PCP Family Medicine; Visit Provider Physician Assistant Medical
DX: R10.11 Right upper quadrant pain (principal)
CPT/HCPCS: 76705

== ENCOUNTER 2024-11-28 11:00 | Outpatient (CLI) | payer MEDICARE, SELFPAY ==
--- NOTE | ~2024-11-28 | XR_ITS ---
AP view of the pelvis and AP and lateral views of the bilateral hips Clinical history: Pain Findings: No acute fracture or dislocation is seen. Osseous alignment is anatomic. Bilateral hip and SI joint spaces are preserved. Soft tissues are unremarkable. Impression: No significant abnormality is seen. Reviewed, dictated and finalized at location . Impression: No significant abnormality is seen.
--- NOTE | ~2024-11-28 | XR_ITS ---
Lumbosacral Spine: AP and lateral views Clinical History: Pain Findings: The normal lordotic curve is maintained. 6 mm anterolisthesis of L4 over L5 present. There is advanced degenerative disc narrowing at L2-L3. There is moderate degenerative disc narrowing at L1 -L2. There is advanced facet arthropathy throughout the lumbar spine. The sacroiliac joints are sandra lly outlined. Impression: Moderate to advanced degenerative spondylosis, as above. 6 mm anterolisthesis of L4 over L5. Reviewed, dictated and finalized at location M. Impression: Moderate to advanced degenerative spondylosis, as above. 6 mm anterolisthesis of L4 over L5.
== END 2024-11-28 11:01 | disposition home or self-care (01) ==
PROVIDERS: PCP Physician Assistant Medical; Visit Provider Physician Assistant Medical
DX: M47.816 Spondylosis without myelopathy or radiculopathy, lumbar region (principal); M43.16 Spondylolisthesis, lumbar region; M25.552 Pain in left hip; M25.551 Pain in right hip
CPT/HCPCS: 72100; 73521

== ENCOUNTER 2025-07-19 00:46 | Day surgery (SDC) | payer MEDICARE, SELFPAY ==
[2025-07-07 12:19] VITALS: BMI 29.9
--- OUTSIDE RECORDS SUMMARY | 2025-07-19 00:49 | XMS_ITS | Encounter Summary ---
Author Organization [facility] Address [address] [place] [address] Care Team Providers Care Ccna Name Role Phone Lalo Dang MD Primary Care Provider Encounter Details Date Type Department Care Team (Late st Contact Info) Description 06/06/2025 Lab Requisition [facility] [address] [facility] [place] [id number] Scar Quiroz MD [address] [place] [address] Social History Tobacco Use Types Packs/Day Years Used Date Smoking Tobacco: Never Assessed Sex and Gender Information Value Date Recorded Sex Assigned at Not on file Legal Sex Male 7:08 PM COMMAND AND CONTROL SPECIALIST Gender Identity Not on file Sexual Orientation Not on file documented as of this encounter Plan of Treatment Not on file documented as of this encounter Visit Diagnoses Not on filedocumented in this encounter Care Teams Ccna Relationship Specialty Start Date End Date Lalo Dang MD [address] [place] [address] PCP - General Dermatology 07/10/23 documented as of this encounter
--- OUTSIDE RECORDS SUMMARY | 2025-07-19 00:49 | XMS_ITS | Encounter Summary ---
Author Organization [facility] Address [address] [facility] [place] [address] Care Team Providers Care Crown And Bridge Technician Name Role Phone Lalo Dang MD Primary Care Provider [phone] Encounter Details Date Type Department Care Team (Late st Contact Info) Description 07/17/2021 Lab Requisition [facility] DermPath Lab [address] [facility] [place] [address] Lalo Dang MD [address] [place] [address] Social History Tobacco Use Types Packs/Day Years Used Date Smoking Tobacco: Never Assessed Sex and Gender Information Value Date Recorded Sex Assigned at Not on file Legal Sex Male 7:08 PM NURSING ADMINISTRATOR Gender Identity Not on file Sexual Orientation Not on file documented as of this encounter Plan of Treatment Not on file documented as of this encounter Procedures Procedure Name Priority Date/Time Associated Diagnosis Comments DERMATOPATHOLOGY Routine 07/16/2021 12:0 0 AM NURSING ADMINISTRATOR documented in this encounter Results * DERMATOPATHOLOGY (07/16/2021 12:00 AM NURSING ADMINISTRATOR) Case Report Dermatopathology Report Case: [id number] Authorizing Provider: Lalo Dang MD Collected: 07/16/2021 12:00 AM Ordering Location: [facility] DermPath Lab Received: 07/17/2021 12:11 PM Pathologist: Chelsey Lisa MD Specimen: Skin, left distal anterior thigh 1:11 PM NURSING ADMINISTRATOR DERMATOPATHOLOGY LABORATORY Final Diagnosis Specimen A. 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 Check margins. 1 1:11 PM [facility] DERMATOPATHOLOGY LABORATORY Gross Description Specimen A: Received is one formalin filled container labeled with the patients name and designated left distal anterior thigh. The specimen consists of a shave removal measuring [id number]. The margin is inked green. Jar 0. 1 1:11 PM [facility] DERMATOPATHOLOGY LABORATORY Microscopic Description Specimen A. SKIN, left distal anterior thigh: The epidermis shows parakeratosis, full thickness disorderly maturation of keratinocytes, mitoses at different levels, and dyskeratotic cells. This lesion is not present at the sampled margin of the specimen. 1 1:11 PM [facility] DERMATOPATHOLOGY LABORATORY Disclaimer An external and internal positive and negative controls are appropriate for the histochemical, immunohistochemical and immunofluorescence stain(s) in this case (if any), except where stated explicitly. The performance characteristics of the stain(s) cited in this report were developed and its performance characteristic determined by the Dermatopathology Laboratory at [facility], directed by Dr. Risa Patel. These tests need not be, and therefore are not, approved by the [place] Food and Drug Administration. The tests are used for clinical purposes. Billing Codes Specimen Charges Stain Charges 19398 1 1 1:11 PM [facility] DERMATOPATHOLOGY LABORATORY Embedded Images 1 1:11 PM [facility] DERMATOPATHOLOGY LABORATORY Pathology/Cytolog y TISSUE SPECIMEN FROM SKIN / Unknown 07/16/2021 07/17/2021 12:11 PM [facility] us Lalo Dang MD LAB - PATHOLOGY/CYTOLOGY ORD ERABLES Final Result DERMATOPATHOLOGY LABORATORY [facility] - Department of Dermatology [facility] Medicine [address] [place] [address], [address] [place] [address], [facility] [phone] documented in this encounter Visit Diagnoses Not on filedocumented in this encounter Care Teams Crown And Bridge Technician Relationship Specialty Start Date End Date Lalo Dang MD [address] [place] [address] PCP - General Dermatology 07/10/23 documented as of this encounter
--- OUTSIDE RECORDS SUMMARY | 2025-07-19 00:49 | XMS_ITS | Encounter Summary ---
Author Organization [facility] Address [address] [facility] [place] [address] Care Team Providers Care Pmo Project Manager Name Role Phone Lalo Dang MD Primary Care Provider [phone] Encounter Details Date Type Department Care Team (Late st Contact Info) Description 06/26/2023 Lab Requisition [facility] - DermPath Lab [address] [facility], [place] [address] Lalo Dang MD [address] [place], [place] [id number] Social History Tobacco Use Types Packs/Day Years Used Date Smoking Tobacco: Never Assessed Sex and Gender Information Value Date Recorded Sex Assigned at Not on file 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 Gender Identity Not on file Sexual Orientation Not on file documented as of this encounter Plan of Treatment Not on file documented as of this encounter Procedures Procedure Name Priority Date/Time Associated Diagnosis Comments DERMATOPATHOLOGY Routine 06/24/2023 12:0 0 AM CDT documented in this encounter Results * DERMATOPATHOLOGY (06/24/2023 12:00 AM CDT) Case Report Dermatopathology Report Case: [id number] Authorizing Provider: Lalo Dang MD Collected: 06/24/2023 12:00 AM Ordering Location: [facility] DermPath Lab Received: 06/26/2023 02:03 PM Pathologist: Chelsey Lisa MD Specimens: A) - Skin, right distal ext ulnar forearm B) - Skin, left post neck just below hairline 1:26 PM WELT EDGE ROUNDER DERMATOPATHOLOGY LABORATORY Final Diagnosis Specimen A. SKIN, right distal ext ulnar forearm: SQUAMOUS CELL CARCINOMA, KERATOACANTHOMA TYPE; SUPERFICIAL PORTIONS OF (C44.622) (see microscopic description) Specimen B. SKIN, left post neck just below hairline: HYPERPLASTIC (HYPERTROPHIC) ACTINIC KERATOSIS (L57.0) DERMAL FIBROSIS (L90.5) (see microscopic description) 3 1:26 PM [facility] DERMATOPATHOLOGY LABORATORY at 1326 WELT EDGE ROUNDER Clinical History A: R/O SCC B: R/O ISK 1:26 PM [facility] DERMATOPATHOLOGY LABORATORY Gross Description Specimen [...] shave biopsy measuring 7x4x1 mm. Jar 0. 1:26 PM [facility] DERMATOPATHOLOGY LABORATORY Microscopic Description Specimen [...] the epidermis. There is focal dermal fibrosis. 1:26 PM [facility] DERMATOPATHOLOGY LABORATORY Disclaimer An external and internal positive and negative controls are appropriate for the histochemical, immunohistochemical and immunofluorescence stain(s) in this case (if any), except where stated explicitly. The performance characteristics of the stain(s) cited in this report were developed and its performance characteristic determined by the Dermatopathology Laboratory at [facility], directed by Dr. Risa Patel. These tests need not be, and therefore are not, approved by the [place] Food and Drug Administration. The tests are used for clinical purposes. Billing Codes Specimen Charges Stain Charges 76963 49272 1 1 3 1:26 PM [facility] DERMATOPATHOLOGY LABORATORY Embedded Images 1:26 PM WELT EDGE ROUNDER DERMATOPATHOLOGY LABORATORY Pathology/Cytology TISSUE SPECIMEN FROM SKIN / Unknown 06/24/2023 06/26/2023 2:03 PM CDT Miscellaneous samples (specimen) TISSUE SPECIMEN FROM SKIN / Unknown 06/24/2023 06/26/2023 2:03 PM CDT Lalo Dang MD LAB - PATHOLOGY/CYTOLOGY ORD ERABLES Final Result DERMATOPATHOLOGY LABORATORY [facility] - Department of Dermatology [facility] [address] [place] [address], [address] [phone] documented in this encounter Visit Diagnoses Not on filedocumented in this encounter Care Teams Pmo Project Manager Relationship Specialty Start Date End Date Lalo Dang MD [address] [place] [address] PCP - General Dermatology 07/10/23 documented as of this encounter
--- OUTSIDE RECORDS SUMMARY | 2025-07-19 00:49 | XMS_ITS | Encounter Summary ---
Author Organization [facility] Address [address] [facility] [place] [address] Care Team Providers Care Home Care Giver Name Role Phone Lalo Dang MD Primary Care Provider Encounter Details Date Type Department Care Team (Late st Contact Info) Description 02/18/2024 Lab Requisition [facility] - DermPath Lab [address] [facility] [place] [address] Lalo Dang MD [address] [place] [address] Social History Tobacco Use Types Packs/Day Years Used Date Smoking Tobacco: Never Assessed Sex and Gender Information Value Date Recorded Sex Assigned at Not on file 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 Gender Identity Not on file Sexual Orientation Not on file documented as of this encounter Plan of Treatment Not on file documented as of this encounter Procedures Procedure Name Priority Date/Time Associated Diagnosis Comments DERMATOPATHOLOGY Routine 02/16/2024 12:0 0 AM CDT documented in this encounter Results * DERMATOPATHOLOGY (02/16/2024 12:00 AM CDT) Case Report Dermatopathology Report Case: [id number] Authorizing Provider: Lalo Dang MD Collected: 02/16/2024 12:00 AM Ordering Location: [facility] - Received: 02/18/2024 10:45 AM DermPath Lab Pathologist: Edilia iLsa MD Specimen: Skin, right superior anterior thigh 1:47 PM CDT DERMATOPATHOLOGY LABORATORY Final Diagnosis Specimen A. SKIN, right superior anterior thigh: SEBORRHEIC KERATOSIS, RETICULATED (ADENOID) TYPE, INFLAMED (L82.1) POST-INFLAMMATORY PIGMENT ALTERATION (L81.9) 4 1:47 PM CDT DERMATOPATHOLOGY LABORATORY at 1347 CDT Clinical History R/O Dysplastic nevus vs angioma [...] characteristic determined by the Dermatopathology Laboratory at [facility], directed by Dr. Risa Patel. These tests need not be, and therefore are not, approved by the [place] Food and Drug Administration. The tests are used for clinical purposes. Billing Codes Specimen Charges Stain Charges 72804 1 1:47 PM CDT DERMATOPATHOLOGY LABORATORY Embedded Images 1:47 PM CDT DERMATOPATHOLOGY LABORATORY Pathology/Cytolog y TISSUE SPECIMEN FROM SKIN / Unknown 02/16/2024 02/18/2024 10:45 AM CDT Lalo Dang MD LAB - PATHOLOGY/CYTOLOGY ORD ERABLES Final Result DERMATOPATHOLOGY LABORATORY [facility] - Department of Dermatology [address], [address] [phone] documented in this encounter Visit Diagnoses Not on filedocumented in this encounter Care Teams Home Care Giver Relationship Specialty Start Date End Date Lalo Dang MD [address] [place] [address] PCP - General Dermatology 07/10/23 documented as of this encounter
--- OUTSIDE RECORDS SUMMARY | 2025-07-19 00:49 | XMS_ITS | Clinical Summary ---
Author Organization [facility] Address [address] [place] [id number] Care Team Providers Care Associate Scientist Name Role Phone Beto Castillo MD Primary Care Provider [phone] Allergies No known active allergies Medications ibuprofen [...] ventral incisional hernia Arthralgia of shoulder 10/08/2010 Encounters Date Type Department Care Team Description 06/05/2025 Orders Only [facility] Medicine Pathology Outreach [address] [place] [address] Unknown, Notinfile from Last 3 Months Social History Tobacco Use Types Packs/Day Years [...] file Legal Sex Male 8:26 PM MANAGER CRISIS Gender Identity Not on file Sexual Orientation Not on file Last Filed Vital Signs Vital Sign Reading Time Taken Comments Blood Pressure 138/100 10/24/2015 10:03 AM MANAGER CRISIS Pulse 96 10/04/2015 9:02 AM MANAGER CRISIS Temperature - - Respiratory Rate - - [...] C Screening 1960 Prostate Cancer Screening-PSA 1960 Hepatitis B Screening 1976 Pneumococcal vaccine 65+ (1 of 2 - PCV) 1977 Zoster Vaccine (1 of 2) 2008 Abdominal Aortic Aneurysm (A AA) Screen 12/13/2023 Well Visit 65+ 12/13/2023 Covid-19 Vaccine ( season) 2025 07/30/2021, 11/23/2020, 11/02/2020 Influenza Vaccine (#1) 2025 07/30/2021 DTaP/Tdap/Td Vaccine (2 - Td or Tdap) 02/07/2029 Procedures Procedure Name Priority Date/Time Associated Diagnosis Comments SURGICAL PATHOLOGY Routine 06/05/2025 3: 40 PM CDT from Last 3 Months Results * Surgical pathology (06/05/2025 3:40 PM CDT) Skin, shave biopsy 06/05/2025 3:40 PM CDT 06/08/2025 7:23 AM CDT Narrative 06/13/2025 3:10 PM CDT [facility] results best viewed via link to PDF [facility] Dermatopathology [facility] [address] [place] [address], [address], [place] [address] [email or web address] Note to Patients: This report may contain a detailed description of human tissue sent by a health care provider to the laboratory for pathologic evaluation. The content of this report is essential for diagnosis and may provide important critical findings. This information may be unfamiliar to patients to review without a medical professional present. It is advised that the patient review this report in the presence of a health care provider who can answer questions and explain the details. FINAL REPORT Patient Information: PATIENT NAME: AMMON RIZVI SEX: M : 1960 (Age: 64) Specimen Information: COLLECTED: 06/05/2025 RECEIVED: 06/08/2025 REPORTED: 06/13/2025 Submitting Physician Information: Nadine Sethi, [facility], [address] [place] [address], DERMATOPATHOLOGY REPORT RESULTS DIAGNOSIS: SKIN, LEFT ANTERIOR PROXIMAL THIGH, SHAVE BIOPSY: SLIGHT SPONGIOTIC DERMATITIS Note: The histopathologic features are not well-developed but the differential diagnosis includes a form of spongiotic/eczematous dermatitis. sxt/lac By this signature, I attest that the above diagnosis is based upon my personal examination of the slides(and/or other material indicated in the diagnosis). Mariam Anaya M.D. Report Electronically Reviewed and Signed Out By Mariam Anaya M.D. 06/13/2025 15:10:51 CLINICAL INFORMATION DERMATITIS UNSPECIFIED VS HYPERSENSITIVITY REACTION VS NUMMULAR ECZEMA VS CONTACT DERMATITIS VS OTHER VS TINEA CORPORIS SPECIMEN DATA MICROSCOPIC DESCRIPTION: There slight spongiosis with hypergranulosis and a superficial perivascular infiltrate of lymphocytes and histiocytes. A PAS stain is negative for fungal forms. (L30.9) GROSS DESCRIPTION: Received in a formalin-containing bottle is a superficial fragment of pale cary, scaly, and hair-bearing skin measuring 0.9 by 0.8 by 0.1 cm. The surgical margin is inked blue. The specimen is sectioned into 3 pieces and submitted entirely in a single cassette. Due to shrinkage, measurements may be different than those at the time of procedure. [facility] Clerical Data A; 93182, [address] The characteristics of special, immunohistochemical, and immunofluorescence stains and in-situ hybridization tests performed by the [facility] Dermatopathology Center were deemed acceptable in ongoing quality control expert measures and in compliance with regulations drawn from the Clinical Laboratory Improvement Act rw5334 (CLIA '88). Control reactions for all stains performed were deemed adequate and appropriate by a pathologist prior to evaluation of patient tissue. Some diagnoses were rendered with the assistance of laboratory-developed tests utilizing analyte-specific reagents; the performance characteristic of these tests were determined by [facility] and are not cleared or approved by the [place] Food an Drug administration. Laboratory developed test may only be performed in a facility that is certified by the [facility] as a high-complexity laboratory under CLIA '88. These tests are used for clinical purposes and are not investigational. us Notinfile Unknown LAB PATHOLOGY ORDERABLES Final Result from Last 3 Months Insurance U[employer] MEDICARE ADVANTAGE [facility] MEDIC[facility] Address: [address] [address] [facility] MEDICARE ADVANTAGE [facility] MED[facility] Address: [facility] [address] [place] [address] Care Teams Associate Scientist Relationship Specialty Start Date End Date Beto Castillo MD PCP - General 10/22/15
--- OUTSIDE RECORDS SUMMARY | 2025-07-19 00:49 | XMS_ITS | Encounter Summary ---
Author Organization [facility] Address [address] [facility] [place] [address] Care Team Providers Care Hub Bander Name Role Phone Lalo Dang MD Primary Care Provider Encounter Details Date Type Department Care Team (Late st Contact Info) Description 01/20/2019 Lab Requisition 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 Gender Identity Not on file Sexual Orientation Not on file documented as of this encounter Plan of Treatment Not on file documented as of this encounter Procedures Procedure Name Priority Date/Time Associated Diagnosis Comments DERMATOPATHOLOGY Routine 01/19/2019 12:0 0 AM CDT documented in this encounter Results * DERMATOPATHOLOGY (01/19/2019 12:00 AM CDT) Case Report Dermatopathology Report Case: [id number] Authorizing Provider: Lalo Dang MD Collected: 01/19/2019 12:00 AM Pathologist: Lili Palmer MD Received: 01/20/2019 11:26 AM Specimens: A) - Skin, right post lower scalp B) - Skin, right post lower scalp anteriorly C) - Skin, right post nape neck in hairline 12:27 PM CDT DERMATOPATHOLOGY LABORATORY Final Diagnosis Specimen A. SKIN, right post lower scalp: COMEDONE (L70.8) Specimen B. SKIN, right post lower scalp anteriorly: FOCAL HEALING SKIN CHANGES (L90.5) Specimen C. SKIN, right post nape neck in hairline: INTRADERMAL MELANOCYTIC NEVUS (D22.4) FOCAL HEALING SKIN CHANGES (L90.5) 12:27 PM T DERMATOPATHOLOGY LABORATORY at 1227 CDT Clinical History A-B: R/O BCC. C: R/O bite vs other. 12:27 PM T DERMATOPATHOLOGY LABORATORY Gross Description Specimen A: Received is one formalin filled container labeled with the patient's name and designated right post lower scalp. The specimen consists of a shave biopsy measuring 5u8b3wy. Jar 0. Specimen B: Received is one formalin filled container labeled with the patient's name and designated right post lower scalp anteriorly. The specimen consists of a shave biopsy measuring 6s7q8uz. Jar 0. Specimen C: Received is one formalin filled container labeled with the patient's name and designated right post nape neck in hairline. The specimen consists of a shave biopsy measuring 2w8g9lm. Jar 0. 12:27 PM T DERMATOPATHOLOGY LABORATORY [...] characteristic determined by the Dermatopathology Laboratory at [facility], directed by Dr. Risa Patel. These tests need not be, and therefore are not, approved by the [place] Food and Drug Administration. The tests are used for clinical purposes. Billing Codes Specimen Charges Stain Charges 30396 45002 19840 1 1 1 9 12:27 PM CDT DERMATOPATHOLOGY LABORATORY Embedded Images 9 12:27 PM CDT DERMATOPATHOLOGY LABORATORY Pathology/Cytology TISSUE SPECIMEN FROM SKIN / Unknown 01/19/2019 01/20/2019 11:26 AM CDT Miscellaneous samples (specimen) TISSUE SPECIMEN FROM SKIN / Unknown 01/19/2019 01/20/2019 11:26 AM CDT Miscellaneous samples (specimen) TISSUE SPECIMEN FROM SKIN / Unknown 01/19/2019 01/20/2019 11:26 AM CDT Lalo Dang MD LAB - PATHOLOGY/CYTOLOGY ORD ERABLES Final Result DERMATOPATHOLOGY LABORATORY [facility] - Department of Dermatology [address] [place] [address] [address] [phone] documented in this encounter Visit Diagnoses Not on filedocumented in this encounter Care Teams Hub Bander Relationship Specialty Start Date End Date Lalo Dang MD [address] [place] [address] PCP - General Dermatology 07/10/23 documented as of this encounter
[2025-07-19 06:51] VITALS: BP 152/85; PULSE 71; RESP 19; TEMP 36.9; O2SAT 99; BMI 29.9
[2025-07-19] MEDS: LACTATED RINGERS 1,000 ML 150 ML IV CONT (07:00)
[2025-07-19] MEDS: SIMETHICONE ORAL SUSPENSION 20 MG/0.3 ML 30 ML BOTTLE 1.8 ML PO (07:03)
--- NOTE | 2025-07-19 07:09 | P.PNAN_ITS ---
Anes - Initial Pre Proc Eval Procedure: Operation Date: 07/19/25 08:00 Proposed Procedures p Esophagogastroduodenoscopy EGD - Yemi Anders MD Date/Time: 07/19/25 07:09 Surgeon: Yemi Anders MD Pre Op Diagnosis: GERD Patient Data Age: 64 Gender: M Height: 1.83 m Weight: 100.2 kg Last Vital Signs Temp 98.4 F 07/19/25 06:51 Pulse 71 07/19/25 06:51 Resp 19 07/19/25 06:51 BP 152/85 H 07/19/25 06:51 Pulse Ox 99 07/19/25 06:51 O2 Del Method Room Air 07/19/25 06:51 Allergies Allergy/AdvReac Type Severity Reaction Status Date / Time simvastatin Allergy Intermediate Unknown Verified 07/19/25 06:50 atorvastatin Allergy Mild Unknown Verified 07/19/25 06:50 Home Medications ?Medication ?Instructions ?Recorded ?Confirmed ?Type losartan 100 1 tablet PO DAILY #90 tabs 0 03/03/25 07/19/25 Rx mg-hydrochlorothiazide 25 mg tablet omeprazole 40 mg capsule,delayed See Rx Instructions . Route 06/04/25 07/19/25 Rx release .COMPLEX #90 caps ondansetron 4 mg disintegrating 4 mg PO Q8H PRN nausea and 06/26/25 07/19/25 Rx tablet vomiting #14 tabs Patient hx anesthesia problems: none Family hx anesthesia problems: none Results Review: All pre-operative results and documents have been reviewed as part of the pre- operative evaluation. [facility]LY [facility], [facility] Past Medical History Medical History Encounter for Medicare annual wellness exam Skin cancer of arm Thrush, oral RUQ pain BMI 29.0-29.9,adult Acute sinusitis Malodorous urine Nausea BMI greater than 30 Family History Family History Mother Family history of multiple sclerosis, Onset Age: 57 Patient's mother is Sibling Patient's sister is in good health, Onset Age: 45 Father Patient's father is Family history of malignant neoplasm of brain Family history of malignant neoplasm of esophagus Social History Social History Smoking status: Former smoker (quit 3 years ago ) Smoking end date: 07/01/23 Alcohol intake: current Substance use type: does not use Living arrangements: with family Additional living arrangements comments: with julius Xie Final PreProcedure Day of Procedure 07/19/25 07:09 Patient weight: normal Lungs: normal air movement Airway: Mallampati scale class II Neurological: alert and oriented Last oral intake: >/= 8 hours ASA classification: III Emergent: no Anesthetic plan: proceed Anesthesia type and monitoring: general GIVS and standard monitoring Results Review: All pre-operative results and documents have been reviewed as part of the pre- operative evaluation. HTN, GERD, pt w good et, no cp or sob w 1-2 fos. Informed Consent: The patient's anesthetic plan and its attendant risks and benefits were d iscussed with the patient/family/POA. Questions were solicited and answers provided to the satisfaction of the patient/family/POA.
--- NOTE | 2025-07-19 07:43 | P.HP_ITS ---
H&P: HPI History of Present Illness Date/Time: 07/19/25 07:43 Chief Complaint: Nausea Narrative: The patient has been complaining of nausea for several months, exacerbated for the past month. He is now referred for EGD. He denies vomiting, dysphagia, heartburn or unintentional weight loss. Review of Systems Review of Systems: All systems reviewed & are unremarkable except as noted in HPI and below PMFSH Past Medical History Medical History Encounter for Medicare annual wellness exam Skin cancer of arm Thrush, oral RUQ pain BMI 29.0-29.9,adult Acute sinusitis Malodorous urine Nausea BMI greater than 30 Family History Family History Mother Family history of multiple sclerosis, Onset Age: 57 Patient's mother is Sibling Patient's sister is in good health, Onset Age: 45 Father Patient's father is Family history of malignant neoplasm of brain Family history of malignant neoplasm of esophagus Social History Social History Smoking status: Former smoker (quit 3 years ago ) Smoking end date: 07/01/23 Alcohol intake: current Substance use type: does not use Living arrangements: with family Additional living arrangements comments: with sp Meds Home Medications and Allergies Home Medications ?Medication ?Instructions ?Recorded ?Confirmed ?Type losartan 100 1 tablet PO DAILY #90 tabs 0 03/03/25 07/19/25 Rx mg-hydrochlorothiazide 25 mg tablet omeprazole 40 mg capsule,delayed See Rx Instructions . Route 06/04/25 07/19/25 Rx release .COMPLEX #90 caps ondansetron 4 mg disintegrating 4 mg PO Q8H PRN nausea and 06/26/25 07/19/25 Rx tablet vomiting #14 tabs Allergies Allergy/AdvReac Type Severity Reaction Status Date / Time simvastatin Allergy Intermediate Unknown Verified 07/19/25 06:50 atorvastatin Allergy Mild Unknown Verified 07/19/25 06:50 Vital Signs Vital Signs - 24 hr 07/19/25 06:51 Temperature 98.4 F Pulse Rate 71 Respiratory Rate 19 Blood Pressure 152/85 H Pulse Oximetry 99 Oxygen Delivery Room Air Exam Const: General: cooperative and healthy appearing Resp: Effort & Inspection: normal respiratory effort and able to speak in complete sentences Auscultation: clear to auscultation bilaterally Cardio: Rate: regular rate Rhythm: regular rhythm GI: Inspection: normal to inspection GI Palp: No No hepatosplenomegaly present Auscultation: normal bowel sounds Rectal Exam: deferred Skin: General skin exam: normal color Psych: Appearance: grossly normal Mental Status: mental status grossly normal Assessment and Plan Assessment and plan (1) Nausea: Code(s): R11.0 - Nausea Status: Acute Assessment and Plan: The patient is deemed a good candidate for the procedure. Consent signed. Will proceed.
--- NOTE | 2025-07-19 08:00 | S_PTH ---
PATIENT: Blue Rizvi LOC: [facility] #:[id number] AGE/SX: 64/M ROOM: RE07/19/[address]: Yemi Anders MD : 1960 BED: DIS: 07/19/2025 SPEC #: [id number] RECD: 07/19/25 09:52 STATUS: CHUCKIE REQ #: [id number] TYRONE: 07/19/25 08:[address]: Yemi Anders DEPT: [facility] Surgical RECD BY: Kathia Laura ENTERED: 07/19/25 09:53 SP TYPE: Surgical OTHR DR: Beto Castillo MD Tissues: A - Gastric Biopsy B - Gastric Biopsy Procedures: Hematoxylin and Eosin Stain Gross and Microscopic Level 4
[2025-07-19 08:05] VITALS: BP 107/62; PULSE 65; RESP 18; O2SAT 95
[2025-07-19 08:15] VITALS: BP 108/71; PULSE 60; RESP 15; O2SAT 97
[2025-07-19 08:25] VITALS: BP 121/79; PULSE 56; RESP 16; O2SAT 98
== END 2025-07-19 08:34 | disposition home or self-care (01) ==
PROVIDERS: PCP Family Medicine; Referring Provider Nurse Practitioner Family; Visit Provider Internal Medicine Gastroenterology
PROC: 0DJ08ZZ Inspection of Upper Intestinal Tract, Via Natural or Artificial Opening Endoscopic (ICD-10-PCS; CPT 43239; principal; 2025-07-19 08:00)
DX: K21.9 Gastro-esophageal reflux disease without esophagitis (principal); K29.70 Gastritis, unspecified, without bleeding; I10 Essential (primary) hypertension; Z87.891 Personal history of nicotine dependence; Z85.828 Personal history of other malignant neoplasm of skin; Z80.8 Family history of malignant neoplasm of other organs or systems; Z80.0 Family history of malignant neoplasm of digestive organs
CPT/HCPCS: 43239; 88305; J2003; J2704; J7120